=== PATIENT | female | born 1965 | race Caucasian/White ===

== ENCOUNTER 2021-05-08 18:00 | Emergency (ER) | payer SELFPAY ==
[2021-05-08] MEDS ORDERED: DERMABOND SKIN ADHESIVE TOP ONE (18:14)
--- NOTE | 2021-05-08 18:47 | EDPHYS ---
Physician Documentation [facility] Name: Wen Borges Age: 55 yrs Sex: Female : 1965 Arrival Date: 05/08/2021 Time: 18:03 Bed 18 Private MD: ED Physician Anil Mercado HPI: 05/08 18:44 This 55 yrs old Female presents to ER via Ambulatory with complaints of Finger pm1 Laceration. 18:44 The patient or guardian reports a laceration. The complaints affect the dorsal aspect pm1 of distal phalanx of right ring finger. Context: The problem was sustained at home, resulted from Cutting finger knife while washing it. Onset: The symptoms/episode began/occurred just prior to arrival. Modifying factors: The symptoms are alleviated by pressure to area. Associated signs and symptoms: The patient has no apparent associated signs or symptoms. Severity of symptoms: in the emergency department the symptoms have improved. The patient has not experienced similar symptoms in the past. The patient has not recently seen a physician. Patient was washing her knife after cutting chicken and the blade cut through the sponge and cut her right ring finger tip. Historical: - Allergies: 18:22 Aspirin; ld1 18:22 Lisinopril; ld1 - Home Meds: 18:22 amlodipine 5 mg tab 1 tab once daily [Active]; hydrochlorothiazide 12.5 mg Oral tab ld1 [Active]; losartan 25 mg Oral tab [Active]; - PMHx: 18:22 Hypertensive disorder; ld1 - PSHx: 18:22 Cholecystectomy; hysterectomy; ld1 - Immunization history:: Adult Immunizations up to date, Client reports having NOT received the Covid vaccine. - Social history:: Smoking status: Patient denies any tobacco usage or history of. Patient/guardian denies using alcohol. ROS: 18:44 Constitutional: Negative for fever, chills, and weight loss, Cardiovascular: Negative pm1 for chest pain, palpitations, and edema, Respiratory: Negative for shortness of breath, cough, wheezing, and pleuritic chest pain. 18:44 Neuro: Negative for headache, weakness, numbness, tingling, and seizure. 18:44 MS/extremity: Negative for decreased range of motion, deformity. 18:44 Skin: Positive for laceration(s), of the dorsal aspect of distal phalanx of right ring finger. 18:44 All other systems are negative. Exam: 18:44 Constitutional: This is a well developed, well nourished patient who is awake, alert, pm1 and in no acute distress. Head/Face: Normocephalic, atraumatic. 18:44 Cardiovascular: Exam negative for acute changes, Rate: normal, Rhythm: regular, Pulses: no pulse deficits are appreciated. 18:44 Respiratory: Exam negative for acute changes, respiratory distress, shortness of breath. 18:44 Musculoskeletal/extremity: Extremities: grossly normal except: noted in the dorsal aspect of distal phalanx of right ring finger: 1 cm long circular partial skin avulsion, ROM: full active range of motion, in the right thumb, right middle finger, right ring finger, right little finger and Right index finger. 18:44 Skin: Appearance: normal except for affected area, Skin injury as noted in musculoskeletal exam. 18:44 Neuro: Exam negative for acute changes, Orientation: is normal, Mentation: is normal, Motor: is normal, moves all fours. Vital Signs: 18:11 BP 193 / 91; Pulse 83; Resp 18; Temp 98.3(O); Pulse Ox 99% on R/A; Weight 120.2 kg; ld1 Height 5 ft. 8 in. (172.72 cm); Pain 6/10; 18:11 Body Mass Index 40.29 (120.20 kg, 172.72 cm) ld1 MDM: 18:10 Patient medically screened. pm1 18:44 Data reviewed: vital signs. Data interpreted: Pulse oximetry: on room air is 99 %. pm1 Interpretation: normal. Counseling: I had a detailed discussion with the patient and/or guardian regarding: the historical points, exam findings, and any diagnostic results supporting the discharge/admit diagnosis, the need for outpatient follow up, to return to the emergency department if symptoms worsen or persist or if there are any questions or concerns that arise at home. Administered Medications: No medications were administered Disposition Summary: 05/08/21 18:46 Discharge Ordered Location: Home pm1 Problem: new pm1 Symptoms: have improved pm1 Condition: Stable pm1 Diagnosis - Laceration without foreign body of right ring finger without damage to nail pm1 Followup: pm1 - With: Emergency Department - When: As needed - Reason: Worsening of condition Followup: pm1 - With: Private Physician - When: 2 - 3 days - Reason: Recheck today's complaints, Continuance of care, Re-evaluation by your physician Discharge Instructions: - Discharge Summary Sheet pm1 - Tissue Adhesive Wound Care pm1 Forms: - Medication Reconciliation Form pm1 - Thank You Letter pm1 - Antibiotic Education pm1 - Prescription Opioid Use pm1 Prescriptions: - Cephalexin 500 mg Oral Capsule - take 1 capsule by ORAL route every 12 hours for 10 days; 20 capsule; Refills: pm1 0, Product Selection Permitted Addendum: 05/11/2021 19:01 Co-signature as Attending Physician, Anil Mercado MD I agree with the assessment and r n plan of care. Attestation: The patient's history, exam findings, diagnostics, and a summary of any interventions or procedures was reviewed in detail with Koko Manning NP. Signatures: Anil Mercado MD MD rn Marinas, Patrick, NP DIRECTOR OF QUALITY pm1 Makcenzie Qureshi RN RN ld1
--- NOTE | 2021-05-08 18:47 | ER ---
Nurse's Notes [facility] Name: Wen Borges Age: 55 yrs Sex: Female : 1965 Arrival Date: 05/08/2021 Time: 18:03 Bed 18 Private MD: Diagnosis: Laceration without foreign body of right ring finger without damage to nail Presentation: 05/08 18:11 Chief complaint: Patient states: I was cutting chicken, I dropped the knife and I ld1 wanted to wash it. The knife cut my finger while I was washing it with a sponge. Coronavirus screen: At this time, the client does not indicate any symptoms associated with coronavirus-19. Ebola Screen: No symptoms or risks identified at this time. Initial Sepsis Screen: Does the patient meet any 2 criteria? No. Patient's initial sepsis screen is negative. Does the patient have a suspected source of infection? No. Patient's initial sepsis screen is negative. Risk Assessment: Do you want to hurt yourself or someone else? Patient reports no desire to harm self or others. Onset of symptoms was May 08, 2021 at 18:18. 18:11 Method Of Arrival: Ambulatory ld1 18:11 Acuity: MORAIMA 4 ld1 Triage Assessment: 18:22 General: Appears in no apparent distress. comfortable, Behavior is calm, cooperative, ld1 appropriate for age. Pain: Complains of pain in right ring fingernail Pain does not radiate. Pain currently is 6 out of 10 on a pain scale. Quality of pain is described as throbbing, Pain began suddenly, Is continuous. EENT: No signs and/or symptoms were reported regarding the EENT system. Neuro: Level of Consciousness is awake, alert, obeys commands, Oriented to person, place, time, situation, Appropriate for age. Cardiovascular: Capillary refill < 3 seconds Patient's skin is warm and dry. Respiratory: Airway is patent Respiratory effort is even, unlabored, Respiratory pattern is regular, symmetrical. GI: Abdomen is flat, non-distended. : No signs and/or symptoms were reported regarding the genitourinary system. Derm: No signs and/or symptoms reported regarding the dermatologic system. Musculoskeletal: No signs and/or symptoms reported regarding the musculoskeletal system. Injury Description: Laceration sustained to dorsal aspect of distal phalanx of right ring finger and right ring fingernail. Historical: - Allergies: 18:22 Aspirin; ld1 18:22 Lisinopril; ld1 - Home Meds: 18:22 amlodipine 5 mg tab 1 tab once daily [Active]; hydrochlorothiazide 12.5 mg Oral tab ld1 [Active]; losartan 25 mg Oral tab [Active]; - PMHx: 18:22 Hypertensive disorder; ld1 - PSHx: 18:22 Cholecystectomy; hysterectomy; ld1 - Immunization history:: Adult Immunizations up to date, Client reports having NOT received the Covid vaccine. - Social history:: Smoking status: Patient denies any tobacco usage or history of. Patient/guardian denies using alcohol. Screenin:26 Abuse screen: Denies threats or abuse. Denies injuries from another. Nutritional ld1 screening: No deficits noted. Tuberculosis screening: No symptoms or risk factors identified. Fall Risk None identified. Assessment: 18:26 Reassessment: See triage assessment. ld1 Vital Signs: 18:11 BP 193 / 91; Pulse 83; Resp 18; Temp 98.3(O); Pulse Ox 99% on R/A; Weight 120.2 kg; ld1 Height 5 ft. 8 in. (172.72 cm); Pain 6/10; 18:11 Body Mass Index 40.29 (120.20 kg, 172.72 cm) ld1 ED Course: 18:03 Patient arrived in ED. mr 18:10 Koko Manning, RADHA is PHCP. pm1 18:10 Anil Mercado MD is Attending Physician. pm1 18:18 Triage completed. ld1 18:22 Mackenzie Qureshi, ADAMARIS is Primary Nurse. ld1 18:22 Arm band placed on right wrist. ld1 18:26 Patient has correct armband on for positive identification. Bed in low position. Call ld1 light in reach. Side rails up X2. Pulse ox on. NIBP on. Door closed. Noise minimized. Warm blanket given. 18:26 No provider procedures requiring assistance completed. ld1 18:51 Patient did not have IV access during this emergency room visit. ld1 Administered Medications: No medications were administered Outcome: 18:46 Discharge ordered by . pm1 18:50 Discharged to home ambulatory. ld1 18:50 Condition: stable 18:50 Discharge instructions given to patient, Instructed on discharge instructions, follow up and referral plans. medication usage, Demonstrated understanding of instructions, follow-up care, medications. 18:50 Prescriptions given X 1. 18:51 Patient left the ED. ld1 Signatures: Dorota Verma Patrick [employer]GING [employer]SE KEEPER LODGING [employer] KEEPER pm1 Mackenzie Qureshi RN RN ld1
[2021-05-08 18:56] VITALS: BP 193/91; TEMP 98.3; O2SAT 99
== END 2021-05-08 18:51 | disposition home or self-care (01) ==
LOC: ER 18:00
DX: S61.214A Laceration without foreign body of right ring finger without damage to nail, initial encounter (principal); W26.0XXA Contact with knife, initial encounter; Y93.89 Activity, other specified; Y92.009 Unspecified place in unspecified non-institutional (private) residence as the place of occurrence of the external cause; I10 Essential (primary) hypertension; Z88.6 Allergy status to analgesic agent; Z88.8 Allergy status to other drugs, medicaments and biological substances
CPT/HCPCS: 99283

== ENCOUNTER 2022-03-05 10:09 | Emergency (ER) | payer SELFPAY ==
--- OUTSIDE RECORDS SUMMARY | 2022-03-05 10:13 | XMS REPORT | Continuity of Care Document ---
:1965 Author Organization [facility] t Address [address] [place] [address] Care Team Providers Name Role Phone Jn Cortes Primary Care Physician SHELLIE REYES Attending Clinician Unavailable Amy Pringle Attending Clinician Shellie Crawford Attending Clinician [phone] Doctor Unassigned, [place] Attending Clinician Unavailable Payers Payer Name Policy Type Policy Number Effective Date Expiration Date S ource Problems Condition Condition Condition Status Onset Resolution Last Treating Co mments Source Name Details Category Date Date Treatment Clinician Date Other Other Disease Active Univers general general 4-11 [place] of counseling [place] advice and advice 00 Fl dical for for Branch contracept contracept tj tj management management Morbid Morbid Disease Active Univers obesity obesity 4-11 ity of 00:00: [place] 00 Medical Branch Essential Essential Disease Active Uni vers hypertensi hypertensi 4-11 it y of on, benign [place], benign [place] History of History of Disease Active Overview : Univers cervical cervical 4-11 Formattin ity of cancer cancer 00:00: g of this [place] 00 note Medical might be Branch different from the original. Total hyst History of History of Disease Active U nivers total total 4-11 ity of hysterecto [place] 00 Medical Branch Allergies, Adverse Reactions, Alerts Allergy Allergy Status Severity Reaction(s) Onset Inactive Treating Comm ents Source Name Type Date Date Clinician n Propensi Active ty to 5-20 adverse 00:00: reaction 00 to drug LISINOPR DRUG Active Other-Cmnt Univ ers [place] INGREDI 4-11 ity of 00:00: [place] 00 Medical Branch Lisinopr Propensi Active Other - See Dry coug h Univers il ty to comments 4-11 ity of adverse 00:00: [place] reaction 00 Medical s Branch Lisinopr Propensi Active il - ty to 3-24 Oral adverse 00:00: reaction 00 to drug Social History Social Habit Start Date Stop Date Quantity Comments Source Exposure to 2021-07-30 2021-08-29 Not sure [facility] [place]-CoV-2 00:00:00 13:25:00 [facility] (event) [place] Tobacco use and 2021-08-29 2021-08-29 Smokeless tobacco Un iversity of exposure 00:00:00 00:00:00 non-user [facility] Alcohol intake 2021-08-29 2021-08-29 Ex-drinker [facility] 00:00:00 00:00:00 (finding) [facility] Sex Ass[birth year] At [birth year] Universit y of 00:00:00 00:00:00 [facility] Smoking Status Start Date Stop Date Source Unknown if ever smoked [facility] Never smoked tobacco [facility] Medications Ordered Filled Start Stop Current Ordering Indication Dosage Frequency Signature Comments Components Source Medication Medication Date Date Medication? Clinician (SIG) Name Name Dose No Unknown 12-16 00:00: 00 losartan 50 2021-0 No 1mg mg tablet 12-16 00:00: 00 amlodipine 2021-0 No 1mg 10 mg 7-29 tablet 00:00: 00 methocarbam 2-0 No 1mg ol 750 mg 7- tablet 00:00: 00 hydrochloro 2-0 No 1mg thiazide 25 7-29 mg tablet 00:00: 00 losartan 50 2021-0 No 1mg mg tablet 12-16 00:00: 00 amlodipine 2022-0 No 1mg 10 mg 7-29 tablet 00:00: 00 methocarbam 2-0 No 1mg ol 750 mg 7-29 tablet 00:00: 00 amlodipine 2022-0 No 1mg 10 mg 7-01 tablet 00:00: 00 hydrochloro 2022-0 No 1mg thiazide 25 7-01 mg tablet 00:00: 00 losartan 50 2022-0 No 1mg mg tablet 11-18 00:00: 00 methocarbam 2022-0 No 1mg ol 750 mg 7-01 tablet 00:00: 00 amlodipine 2022-0 No 1mg 10 mg 7- tablet 00:00: 00 hydrochloro 2022-0 No 1mg thiazide 25 7-01 mg tablet 00:00: 00 losartan 50 2022-0 No 1mg mg tablet 11-18 00:00: 00 methocarbam 2022-0 No 1mg ol 750 mg 7- tablet 00:00: 00 hydrochloro 2022-0 No 1mg thiazide 25 5-27 mg tablet 00:00: 00 losartan 50 2022-0 No 1mg mg tablet 10-14 00:00: 00 amlodipine 2022-0 No 1mg 10 mg 5-27 tablet 00:00: 00 hydrochloro 2022-0 No 1mg thiazide 25 5-27 mg tablet 00:00: 00 losartan 50 2022-0 No 1mg mg tablet 10-14 00:00: 00 amlodipine 2022-0 No 1mg 10 mg 5-27 tablet 00:00: 00 Dose 2022-0 No Unknown 5-11 00:00: 00 Dose 2022-0 No Unknown 5-11 00:00: 00 Dose 2022-0 No Unknown 5-11 00:00: 00 Dose 2022-0 No Unknown 5-11 00:00: 00 Dose 2022-0 No Unknown 5-11 00:00: 00 Dose 2022-0 No Unknown 5-11 00:00: 00 methocarbam 2022-0 No 1mg ol 750 mg 5-10 tablet 00:00: 00 methocarbam 2022-0 No 1mg ol 750 mg 5-10 tablet 00:00: 00 hydrochloro 2022-0 No 1mg thiazide 25 4-29 mg tablet 00:00: 00 losartan 50 2022-0 No 1mg mg tablet 4 00:00: 00 amlodipine 2022-0 No 1mg 10 mg 4-29 tablet 00:00: 00 hydrochloro 2022-0 No 1mg thiazide 25 4-29 mg tablet 00:00: 00 losartan 50 2021-0 No 1mg mg tablet 4-29 00:00: 00 amlodipine 2021-0 No 1mg 10 mg 4-29 tablet 00:00: 00 No known 2021-0 No Univers medications 4-11 ity of 17:17: [address] HYDROCHLORO 0 Yes Take by Uni vers THIAZIDE 4-11 mouth. ity of ORAL 13:38: [address] amLODIPine 2021-0 Yes 10mg Take 10 mg U nivers 10 mg 4-11 by mouth ity of tablet 13:38: daily. [address] losartan 2021-0 Yes Take by Univer s potassium 4-11 mouth. ity of (LOSARTAN 13:38: [place] ORAL) [address] [place] [address] HYDROCHLORO 0 Yes Take by Uni vers THIAZIDE 4-11 mouth. ity of ORAL 13:38: [address] amLODIPine 2021-0 Yes 10mg Take 10 mg U nivers 10 mg 4-11 by mouth ity of tablet 13:38: daily. [address] losartan 2021-0 Yes Take by Univer s potassium 4-11 mouth. ity of (LOSARTAN 13:38: [place] ORAL) [address] [place] [address] HYDROCHLORO 0 Yes Take by Uni vers THIAZIDE 4-11 mouth. ity of ORAL 13:38: [address] amLODIPine 2021-0 Yes 10mg Take 10 mg U nivers 10 mg 4-11 by mouth ity of tablet 13:38: daily. [address] losartan 2021-0 Yes Take by Univer s potassium 4-11 mouth. ity of (LOSARTAN 13:38: [place] ORAL) [address] [place] [address] losartan 50 2021-0 No 1mg mg tablet 3-24 00:00: 00 Dose 2021-0 No Unknown 3-24 00:00: 00 Dose 2-0 No Unknown 3-24 00:00: 00 Dose 2-0 No Unknown 3-24 00:00: 00 losartan 50 2021-0 No 1mg mg tablet 3-24 00:00: 00 Dose 2-0 No Unknown 3-24 00:00: 00 Dose 2-0 No Unknown 3-24 00:00: 00 hydrochloro 2021-0 No 1mg thiazide 25 3-24 mg tablet 00:00: 00 losartan 50 2022-0 No 1mg mg tablet 3-24 00:00: 00 amlodipine 2-0 No 1mg 10 mg 3-24 tablet 00:00: 00 Dose 2-0 No Unknown 3-24 00:00: 00 Dose 2-0 No Unknown 3-24 00:00: 00 hydrochloro 2-0 No 1mg thiazide 25 3-24 mg tablet 00:00: 00 amlodipine 2-0 No 1mg 10 mg 3-24 tablet 00:00: 00 losartan 50 2-0 No 1mg mg tablet 3-24 00:00: 00 Dose 2-0 No Unknown 3-24 00:00: 00 Dose 2-0 No Unknown 3-24 00:00: 00 Dose 2-0 No Unknown 3-24 00:00: 00 Vital Signs Vital Name Observation Time Observation Value Comments Source BP Systolic 2022-02-28 11:39:00 183 mm[Hg] BP Diastolic 2022-02-28 11:39:00 114 mm[Hg] Weight Measured 2022-02-28 11:39:00 247.00 pounds Height Measured 2022-02-28 11:39:00 63.00 inches Body Temperature 2022-02-28 11:39:00 97.60 degrees Heart Rate 2022-02-28 11:39:00 76.00 /min Respiratory Rate 2022-02-28 11:39:00 17.00 /min BP Systolic 2022-01-02 15:29:00 151 mm[Hg] BP Diastolic 2022-01-02 15:29:00 92 mm[Hg] Weight Measured 2022-01-02 15:29:00 253.00 pounds Height Measured 2022-01-02 15:29:00 63.00 inches Body Temperature 2022-01-02 15:29:00 98.20 degrees Heart Rate 2022-01-02 15:29:00 66.00 /min Respiratory Rate 2022-01-02 15:29:00 18.00 /min BP Systolic 2021-12-16 10:38:00 152 mm[Hg] BP Diastolic 2021-12-16 10:38:00 87 mm[Hg] Weight Measured 2021-12-16 10:38:00 253.00 pounds Height Measured 2021-12-16 10:38:00 63.00 inches Body Temperature 2021-12-16 10:38:00 97.80 degrees Heart Rate 2021-12-16 10:38:00 84.00 /min Respiratory Rate 2021-12-16 10:38:00 18.00 /min BP Systolic 2021-11-11 08:42:00 130 mm[Hg] BP Diastolic 2021-11-11 08:42:00 101 mm[Hg] Weight Measured 2021-11-11 08:42:00 Height Measured 2021-11-11 08:42:00 Body Temperature 2021-11-11 08:42:00 Heart Rate 2021-11-11 08:42:00 Respiratory Rate 2021-11-11 08:42:00 BP Systolic 2021-09-27 10:31:00 137 mm[Hg] BP Diastolic 2021-09-27 10:31:00 84 mm[Hg] Weight Measured 2021-09-27 10:31:00 264.20 pounds Height Measured 2021-09-27 10:31:00 63.00 inches Body Temperature 2021-09-27 10:31:00 97.90 degrees Heart Rate 2021-09-27 10:31:00 77.00 /min Respiratory Rate 2021-09-27 10:31:00 16.00 /min BP Systolic 2021-08-11 18:05:00 165 mm[Hg] BP Diastolic 2021-08-11 18:05:00 99 mm[Hg] Weight Measured 2021-08-11 18:05:00 273.00 pounds Height Measured 2021-08-11 18:05:00 63.00 inches Body Temperature 2021-08-11 18:05:00 98.30 degrees Heart Rate 2021-08-11 18:05:00 71.00 /min Respiratory Rate 2021-08-11 18:05:00 16.00 /min Procedures Procedure Date / Time Performed Performing Clinician [facility] e REFERRAL- 2021-08-12 05:01:00 Doctor Unassigned, No Univer [facility] REQUEST/RESPONSE Name Medical Branch Plan of Care Planned Activity Planned Date Details Comments Source Goal Plan of Care Note [code = 52123-5] Goal Plan of Care Note [code = 34316-0] Goal Plan of Care Note [code = 53144-7] Goal Plan of Care Note [code = 13530-8] Goal Plan of Care Note [code = 11096-3] Goal Plan of Care Note [code = 11881-0] Goal Plan of Care Note [code = 34147-2] Goal Plan of Care Note [code = 69559-0] Goal Plan of Care Note [code = 68085-1] Goal Plan of Care Note [code = 17379-8] Goal Plan of Care Note [code = 35602-3] Goal Plan of Care Note [code = 61071-9] Goal Plan of Care Note [code = 75691-0] Goal Plan of Care Note [code = 91631-2] Goal Plan of Care Note [code = 43004-3] Goal Plan of Care Note [code = 76937-7] Goal Plan of Care Note [code = 16859-1] Goal Plan of Care Note [code = 86305-0] Goal Plan of Care Note [code = 40922-4] Goal Plan of Care Note [code = 08455-6] Encounters Start End Encounter Admission Attending Care Care Encounter Source Date/Time Date/Time Type Type Clinicians Facility Department ID 2022-03-28 2022-03-28 Outpatient R AMY [facility] [id number] Univers 00:00:00 00:00:00 SHELLIE pagan [facility] 2022-02-28 2022-02-28 Outpatient [facility] [id number] [place] 11:32:14 11:32:14 [id number] F Kwasi 2022-02-28 2022-02-28 Outpatient [id number] 00:00:00 00:00:00 Visit [id number] 2022-01-03 2022-01-03 Telephone [facility] [id number] Univers 00:00:00 00:00:00 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 [id number] ity [facility] [id number] Tino as MATERNAL [phone] Med ical & CHILD [address] [place] [address] 2022-01-02 2022-01-02 Outpatient [id number] 00:00:00 00:00:00 Visit [id number] 2021-11-29 2021-11-29 [facility] [id number] Univers 09:36:20 23:59:00 Encounter Shellie C SPECIALTY [id number] ity of [facility] [place] [phone] [address] 2021-11-29 2021-11-29 Outpatient R [facility] [id number] [facility] 09:36:20 23:59:00 SHELLIE ity o f [facility] 2021-09-13 2021-09-13 Telephone [facility] [id number] Univers 00:00:00 00:00:00 Shellie 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 [id number] ity of [facility] 4.2.7.2.686 [place] as MATERNAL [id number] Med ical & CHILD [address] [place] [address] 2021-09-01 2021-09-01 Outpatient R [facility] [id number] Univers 14:45:00 14:45:00 ity of [facility] 2021-09-01 2021-09-01 Telephone [facility] [id number] Univers 00:00:00 00:00:00 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 [id number] ity of [facility] 4.2.7.2.686 [place] as MATERNAL [phone] Med ical & CHILD 107 [facility] 2021-08-29 2021-08-29 Office [facility] [id number] Univers 14:45:00 14:53:14 Visit Shellie 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 [id number] ity of REGION[facility] 4.2.7.2.686 [place] as MATERNAL [phone] Med ical & CHILD [address] [place] [address] 2021-08-29 2021-08-29 Outpatient R AKINSIPE, [facility] [id number] Univers 14:45:00 14:45:00 SHELLIE hemphill o [facility] 2021-08-29 2021-08-29 Office Akinsipe, [facility] [id number] Univers 13:30:00 14:29:07 Visit Shellie Rogers 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 [id number] ity of [facility] 4.2.7.2.686 [place] as MATERNAL [phone] [facility] & CHILD [address] [place] [address] 2021-08-29 2021-08-29 Outpatient R AKINSIPE, [facility] [id number] Univers 13:30:00 14:29:07 SHELLIE hemphill o [facility] 2021-08-29 2021-08-29 Outpatient R AKINSIPE, [facility] [id number] Univers 13:30:00 14:29:07 SHELLIE hemphill o [facility] 2021-08-29 2021-08-29 Outpatient R AKINSIPE, [facility] [id number] Univers 13:00:00 14:25:18 SHELLIE hemphill o [facility] 2021-08-29 2021-08-29 Outpatient R AKINSIPE, [facility] [id number] Univers 13:00:00 14:25:18 SHELLIE lakhwindermaria de jesus o [facility] 2021-08-29 2021-08-29 Orders Doctor JOHANA [id number] Univers 00:00:00 00:00:00 Only Unassigned, SHERRY [id number] ity of [place] [facility] 4.2.7.2.686 Tino as [id number] [address] 2021-08-12 2021-08-12 Orders Doctor JOHANA [id number] Univers 00:00:00 00:00:00 Only Unassigned, SHERRY [id number] ity of [place] [facility] 4.2.7.2.686 [place] as [id number] Medi irina 009 Branch Results Test Description Test Time Test Comments Results Result Comments Source COMPREHENSIVE METABOLIC PANEL 2021-12-17 04:29:27 Test Item Value Reference Range Interpretation Comme nts GLUCOSE (test code = 221) 82 MG/DL 70-99 BUN (test code = 220) 12 MG/DL 6-20 CREATININE (test code = 0.97 MG/DL 0.60-1.30 2213) eGFR (2020 CKD-EPI) (test 68 ML/MIN/1.73 >60 code = 76627) CALC BUN/CREAT (test code = 12 RATIO 6-28 2234) SODIUM (test code = 223) 145 MEQ/L 133-146 POTASSIUM (test code = 2228) 3.9 MEQ/L 3.5-5.4 CHLORIDE (test code = 221) 105 MEQ/L 95-107 CARBON DIOXIDE (test code = 27 MEQ/L 2205) CALCIUM (test code = 220) 9.6 MG/DL 8.5-10.5 PROTEIN, TOTAL (test code = 6.1 G/DL 6.1-8.3 2228) ALBUMIN (test code = 220) 4.3 G/DL 3.5-5.2 CALC GLOBULIN (test code = 1.8 G/DL 1.9-3.7 L 2239) CALC A/G RATIO (test code = 2.4 RATIO 1.0-2.6 2233) BILIRUBIN, TOTAL (test code 0.4 MG/DL See_Comment [Automated message] The = 2206) system which ge nerated this result transmit carmen reference range: <=1.2. T he reference range was not u sed to interpret this result as normal/abnormal . ALKALINE PHOSPHATASE (test 112 U/L 40-136 code = 2204) AST (test code = 2218) 21 U/L 9-40 ALT (test code = 2219) 22 U/L 5-40 LIPID [id number] 04:29:27 Test Item Value Reference Range Interpretation Comments CHOLESTEROL (test 182 MG/DL <200 code = 2210) TRIGLYCERIDES (test 152 MG/DL <150 H code = 2232) HDL CHOLESTEROL (test 41 MG/DL >39 code = 2220) CALC LDL CHOL (test 114 MG/DL <100 H NOTE: C ALCULATED LDL code = 2237) IS BASED ON YENNIFER-MARLEY METHOD WHICHINCLUDES ADJUSTABLE TRIGLYCERIDE:VL DL CHOLESTEROL RAT IO.THIS FACTOR VARIES B Y MEASURED TRIGLY CERIDE AND NON-HDLCHOL ESTEROL CONCENTRATIONS WITH INCREASED CALCU LATED LDL SEENIN HIGH ER TRIGLYCERIDE OR LOWER NON-HDL SPECIME NS. FOR MOREINFORMATION , SEE CLIENT ANNOUNCE MENT AT [email or web address] [email or web address] RATIO LDL/HDL 2.78 RATIO <3.22 (test code = 2238) HEMOGLOBIN [id number] 04:10:33 Test Item Value Reference Range Interpretation Comments HEMOGLOBIN A1c (test 5.5 % 4.2-5.6 UNLESS OTHERWISE code = 02552) INDICATED, ALL TESTING PERFORMED [facility] PATHOLOGY [employer] [address] [place] [id number] [place] [address] DIRECTOR: ARCADIO ROBLES M.D. CLIA NUMBER [id number] CAP ACCREDITATION N O. [id number] CBC W/AUTO DIFF WITH [id number] 03:19:47 Test Item Value Reference Range Interpretation Comments WBC (test code = 8.2 K/UL 3.5-11.0 1001) RBC (test code = 5.04 M/UL 3.80-5.40 1002) HEMOGLOBIN (test code 13.5 G/DL 11.5-15.5 = 1003) HEMATOCRIT (test code 40.6 % 34.0-45.0 = 1004) MCV (test code = 80.6 fL 80.0-99.0 1005) MCH (test code = 26.8 PG 25.0-33.0 1006) MCHC (test code = 33.3 G/DL 31.0-36.0 1007) RDW (test code = 12.9 % 11.5-15.0 1038) NEUTROPHILS (test 70.3 % code = 1008) LYMPHOCYTES (test 21.5 % code = 1010) MONOCYTES (test code 4.9 % = 1011) EOSINOPHILS (test 2.6 % code = 1012) BASOPHILS (test code 0.6 % = 1013) IMMATURE GRANULOCYTES 0.1 % (test code = 1036) NUCLEATED RBCS (test 0.0 /100 WBC'S See_Comment [Aut omated code = 1065) message] The sy stem which generated this result transmitted reference range : 0.0. The refere nce range was not u sed to interpret th is result as normal/abnormal . PLATELET COUNT (test 277 K/UL 130-400 code = 1015) ABSOLUTE NEUTROPHILS 5.73 K/UL 1.50-7.50 (test code = 1066) ABSOLUTE LYMPHOCYTES 1.75 K/UL 1.00-4.00 (test code = 1067) ABSOLUTE MONOCYTES 0.40 K/UL 0.20-1.00 (test code = 1068) ABSOLUTE EOSINOPHILS 0.21 K/UL 0.00-0.50 (test code = 1040) ABSOLUTE BASOPHILS 0.05 K/UL 0.00-0.20 (test code = 1069) ABS IMMATURE 0.01 K/UL 0.00-0.10 GRANULOCYTES (test code = 1020) ABS NUCLEATED RBCS 0.00 K/UL 0.00-0.11 (test code = 85455) CBC W/AUTO DIFF WITH PLATELETS [ADDED]2021-12-17 00:00:00 Test Item Value Reference Range Interpretation Comments WBC (test code = 1001) 8.2 K/UL RBC (test code = 1002) 5.04 M/UL HEMOGLOBIN (test code = 1003) 13.5 G/DL HEMATOCRIT (test code = 1004) 40.6 % MCV (test code = 1005) 80.6 fL MCH (test code = 1006) 26.8 PG MCHC (test code = 1007) 33.3 G/DL RDW (test code = 1038) 12.9 % NEUTROPHILS (test code = 1008) 70.3 % LYMPHOCYTES (test code = 1010) 21.5 % MONOCYTES (test code = 1011) 4.9 % EOSINOPHILS (test code = 1012) 2.6 % BASOPHILS (test code = 1013) 0.6 % IMMATURE GRANULOCYTES (test 0.1 % code = 1036) NUCLEATED RBCS (test code = 0.0 /100WBC'S 1065) PLATELET COUNT (test code = 277 K/UL 1015) ABSOLUTE NEUTROPHILS (test code 5.73 K/UL = 1066) ABSOLUTE LYMPHOCYTES (test code 1.75 K/UL = 1067) ABSOLUTE MONOCYTES (test code = 0.40 K/UL 1068) ABSOLUTE EOSINOPHILS (test code 0.21 K/UL = 1040) ABSOLUTE BASOPHILS (test code = 0.05 K/UL 1069) ABS IMMATURE GRANULOCYTES (test 0.01 K/UL code = 1020) ABS NUCLEATED RBCS (test code = 0.00 K/UL 92710) CBC W/AUTO DIFF WITH PLATELETS [ADDED]2021-12-17 00:00:00 Test Item Value Reference Range Interpretation Comments WBC (test code = 1001) 8.2 K/UL RBC (test code = 1002) 5.04 M/UL HEMOGLOBIN (test code = 1003) 13.5 G/DL HEMATOCRIT (test code = 1004) 40.6 % MCV (test code = 1005) 80.6 fL MCH (test code = 1006) 26.8 PG MCHC (test code = 1007) 33.3 G/DL RDW (test code = 1038) 12.9 % NEUTROPHILS (test code = 1008) 70.3 % LYMPHOCYTES (test code = 1010) 21.5 % MONOCYTES (test code = 1011) 4.9 % EOSINOPHILS (test code = 1012) 2.6 % BASOPHILS (test code = 1013) 0.6 % IMMATURE GRANULOCYTES (test 0.1 % code = 1036) NUCLEATED RBCS (test code = 0.0 /100WBC'S 1065) PLATELET COUNT (test code = 277 K/UL 1015) ABSOLUTE NEUTROPHILS (test code 5.73 K/UL = 1066) ABSOLUTE LYMPHOCYTES (test code 1.75 K/UL = 1067) ABSOLUTE MONOCYTES (test code = 0.40 K/UL 1068) ABSOLUTE EOSINOPHILS (test code 0.21 K/UL = 1040) ABSOLUTE BASOPHILS (test code = 0.05 K/UL 1069) ABS IMMATURE GRANULOCYTES (test 0.01 K/UL code = 1020) ABS NUCLEATED RBCS (test code = 0.00 K/UL 21574) CBC W/AUTO DIFF WITH PLATELETS [ADDED]2021-12-17 00:00:00 Test Item Value Reference Range Interpretation Comments WBC (test code = 1001) 8.2 K/UL RBC (test code = 1002) 5.04 M/UL HEMOGLOBIN (test code = 1003) 13.5 G/DL HEMATOCRIT (test code = 1004) 40.6 % MCV (test code = 1005) 80.6 fL MCH (test code = 1006) 26.8 PG MCHC (test code = 1007) 33.3 G/DL RDW (test code = 1038) 12.9 % NEUTROPHILS (test code = 1008) 70.3 % LYMPHOCYTES (test code = 1010) 21.5 % MONOCYTES (test code = 1011) 4.9 % EOSINOPHILS (test code = 1012) 2.6 % BASOPHILS (test code = 1013) 0.6 % IMMATURE GRANULOCYTES (test 0.1 % code = 1036) NUCLEATED RBCS (test code = 0.0 /100WBC'S 1065) PLATELET COUNT (test code = 277 K/UL 1015) ABSOLUTE NEUTROPHILS (test code 5.73 K/UL = 1066) ABSOLUTE LYMPHOCYTES (test code 1.75 K/UL = 1067) ABSOLUTE MONOCYTES (test code = 0.40 K/UL 1068) ABSOLUTE EOSINOPHILS (test code 0.21 K/UL = 1040) ABSOLUTE BASOPHILS (test code = 0.05 K/UL 1069) ABS IMMATURE GRANULOCYTES (test 0.01 K/UL code = 1020) ABS NUCLEATED RBCS (test code = 0.00 K/UL 83857) COMPREHENSIVE METABOLIC PANEL [ADDED]2021-12-17 00:00:00 Test Item Value Reference Range Interpretation Comments GLUCOSE (test code = 2217) 82 MG/DL BUN (test code = 2208) 12 MG/DL CREATININE (test code = 2214) 0.97 MG/DL eGFR (2020 CKD-EPI) (test code 68 ML/MIN/1.73 = 82969) CALC BUN/CREAT (test code = 12 RATIO 2235) SODIUM (test code = 2231) 145 MEQ/L POTASSIUM (test code = 2228) 3.9 MEQ/L CHLORIDE (test code = 2215) 105 MEQ/L CARBON DIOXIDE (test code = 27 MEQ/L 2206) CALCIUM (test code = 2209) 9.6 MG/DL PROTEIN, TOTAL (test code = 6.1 G/DL 2228) ALBUMIN (test code = 2201) 4.3 G/DL CALC GLOBULIN (test code = 1.8 G/DL 2240) CALC A/G RATIO (test code = 2.4 RATIO 2234) BILIRUBIN, TOTAL (test code = 0.4 MG/DL 2207) ALKALINE PHOSPHATASE (test 112 U/L code = 2204) AST (test code = 2218) 21 U/L ALT (test code = 2219) 22 U/L COMPREHENSIVE METABOLIC PANEL [ADDED]2021-12-17 00:00:00 Test Item Value Reference Range Interpretation Comments GLUCOSE (test code = 2217) 82 MG/DL BUN (test code = 2208) 12 MG/DL CREATININE (test code = 2214) 0.97 MG/DL eGFR (2020 CKD-EPI) (test code 68 ML/MIN/1.73 = 73574) CALC BUN/CREAT (test code = 12 RATIO 2235) SODIUM (test code = 2231) 145 MEQ/L POTASSIUM (test code = 2228) 3.9 MEQ/L CHLORIDE (test code = 2215) 105 MEQ/L CARBON DIOXIDE (test code = 27 MEQ/L 2205) CALCIUM (test code = 2209) 9.6 MG/DL PROTEIN, TOTAL (test code = 6.1 G/DL 2228) ALBUMIN (test code = 2201) 4.3 G/DL CALC GLOBULIN (test code = 1.8 G/DL 2239) CALC A/G RATIO (test code = 2.4 RATIO 2233) BILIRUBIN, TOTAL (test code = 0.4 MG/DL 2206) ALKALINE PHOSPHATASE (test 112 U/L code = 2204) AST (test code = 2218) 21 U/L ALT (test code = 2219) 22 U/L LIPID PANEL [ADDED]2021-12-17 00:00:00 Test Item Value Reference Range Interpretation Comments CHOLESTEROL (test code = 2210) 182 MG/DL TRIGLYCERIDES (test code = 2232) 152 MG/DL HDL CHOLESTEROL (test code = 2220) 41 MG/DL CALC LDL CHOL (test code = 2237) 114 MG/DL RISK RATIO LDL/HDL (test code = 2.78 RATIO 2238) LIPID PANEL [ADDED]2021-12-17 00:00:00 Test Item Value Reference Range Interpretation Comments CHOLESTEROL (test code = 2210) 182 MG/DL TRIGLYCERIDES (test code = 2232) 152 MG/DL HDL CHOLESTEROL (test code = 2220) 41 MG/DL CALC LDL CHOL (test code = 2237) 114 MG/DL RISK RATIO LDL/HDL (test code = 2.78 RATIO 2238) HEMOGLOBIN A1c [ADDED]2021-12-17 00:00:00 Test Item Value Reference Range Interpretation Comments HEMOGLOBIN A1c (test code = 34296) 5.5 % HEMOGLOBIN A1c [ADDED]2021-12-17 00:00:00 Test Item Value Reference Range Interpretation Comments HEMOGLOBIN A1c (test code = 64459) 5.5 % HEMOGLOBIN A1c [ADDED]2021-12-17 00:00:00 Test Item Value Reference Range Interpretation Comments HEMOGLOBIN A1c (test code = 89224) 5.5 % CBC W/AUTO DIFF WITH PLATELETS [ADDED]2021-12-17 00:00:00 Test Item Value Reference Range Interpretation Comments WBC (test code = 1001) 8.2 K/UL RBC (test code = 1002) 5.04 M/UL HEMOGLOBIN (test code = 1003) 13.5 G/DL HEMATOCRIT (test code = 1004) 40.6 % MCV (test code = 1005) 80.6 fL MCH (test code = 1006) 26.8 PG MCHC (test code = 1007) 33.3 G/DL RDW (test code = 1038) 12.9 % NEUTROPHILS (test code = 1008) 70.3 % LYMPHOCYTES (test code = 1010) 21.5 % MONOCYTES (test code = 1011) 4.9 % EOSINOPHILS (test code = 1012) 2.6 % BASOPHILS (test code = 1013) 0.6 % IMMATURE GRANULOCYTES (test 0.1 % code = 1036) NUCLEATED RBCS (test code = 0.0 /100WBC'S 1065) PLATELET COUNT (test code = 277 K/UL 1015) ABSOLUTE NEUTROPHILS (test code 5.73 K/UL = 1066) ABSOLUTE LYMPHOCYTES (test code 1.75 K/UL = 1067) ABSOLUTE MONOCYTES (test code = 0.40 K/UL 1068) ABSOLUTE EOSINOPHILS (test code 0.21 K/UL = 1040) ABSOLUTE BASOPHILS (test code = 0.05 K/UL 1069) ABS IMMATURE GRANULOCYTES (test 0.01 K/UL code = 1020) ABS NUCLEATED RBCS (test code = 0.00 K/UL 86946) CBC W/AUTO DIFF WITH PLATELETS [ADDED]2021-12-17 00:00:00 Test Item Value Reference Range Interpretation Comments WBC (test code = 1001) 8.2 K/UL RBC (test code = 1002) 5.04 M/UL HEMOGLOBIN (test code = 1003) 13.5 G/DL HEMATOCRIT (test code = 1004) 40.6 % MCV (test code = 1005) 80.6 fL MCH (test code = 1006) 26.8 PG MCHC (test code = 1007) 33.3 G/DL RDW (test code = 1038) 12.9 % NEUTROPHILS (test code = 1008) 70.3 % LYMPHOCYTES (test code = 1010) 21.5 % MONOCYTES (test code = 1011) 4.9 % EOSINOPHILS (test code = 1012) 2.6 % BASOPHILS (test code = 1013) 0.6 % IMMATURE GRANULOCYTES (test 0.1 % code = 1036) NUCLEATED RBCS (test code = 0.0 /100WBC'S 1065) PLATELET COUNT (test code = 277 K/UL 1015) ABSOLUTE NEUTROPHILS (test code 5.73 K/UL = 1066) ABSOLUTE LYMPHOCYTES (test code 1.75 K/UL = 1067) ABSOLUTE MONOCYTES (test code = 0.40 K/UL 1068) ABSOLUTE EOSINOPHILS (test code 0.21 K/UL = 1040) ABSOLUTE BASOPHILS (test code = 0.05 K/UL 1069) ABS IMMATURE GRANULOCYTES (test 0.01 K/UL code = 1020) ABS NUCLEATED RBCS (test code = 0.00 K/UL 06453) CBC W/AUTO DIFF WITH PLATELETS [ADDED]2021-12-17 00:00:00 Test Item Value Reference Range Interpretation Comments WBC (test code = 1001) 8.2 K/UL RBC (test code = 1002) 5.04 M/UL HEMOGLOBIN (test code = 1003) 13.5 G/DL HEMATOCRIT (test code = 1004) 40.6 % MCV (test code = 1005) 80.6 fL MCH (test code = 1006) 26.8 PG MCHC (test code = 1007) 33.3 G/DL RDW (test code = 1038) 12.9 % NEUTROPHILS (test code = 1008) 70.3 % LYMPHOCYTES (test code = 1010) 21.5 % MONOCYTES (test code = 1011) 4.9 % EOSINOPHILS (test code = 1012) 2.6 % BASOPHILS (test code = 1013) 0.6 % IMMATURE GRANULOCYTES (test 0.1 % code = 1036) NUCLEATED RBCS (test code = 0.0 /100WBC'S 1065) PLATELET COUNT (test code = 277 K/UL 1015) ABSOLUTE NEUTROPHILS (test code 5.73 K/UL = 1066) ABSOLUTE LYMPHOCYTES (test code 1.75 K/UL = 1067) ABSOLUTE MONOCYTES (test code = 0.40 K/UL 1068) ABSOLUTE EOSINOPHILS (test code 0.21 K/UL = 1040) ABSOLUTE BASOPHILS (test code = 0.05 K/UL 1069) ABS IMMATURE GRANULOCYTES (test 0.01 K/UL code = 1020) ABS NUCLEATED RBCS (test code = 0.00 K/UL 03566) COMPREHENSIVE METABOLIC PANEL [ADDED]2021-12-17 00:00:00 Test Item Value Reference Range Interpretation Comments GLUCOSE (test code = 2217) 82 MG/DL BUN (test code = 2208) 12 MG/DL CREATININE (test code = 2214) 0.97 MG/DL eGFR (2020 CKD-EPI) (test code 68 ML/MIN/1.73 = 66257) CALC BUN/CREAT (test code = 12 RATIO 2235) SODIUM (test code = 2231) 145 MEQ/L POTASSIUM (test code = 2228) 3.9 MEQ/L CHLORIDE (test code = 2215) 105 MEQ/L CARBON DIOXIDE (test code = 27 MEQ/L 2205) CALCIUM (test code = 2209) 9.6 MG/DL PROTEIN, TOTAL (test code = 6.1 G/DL 2228) ALBUMIN (test code = 2201) 4.3 G/DL CALC GLOBULIN (test code = 1.8 G/DL 2240) CALC A/G RATIO (test code = 2.4 RATIO 2234) BILIRUBIN, TOTAL (test code = 0.4 MG/DL 220) ALKALINE PHOSPHATASE (test 112 U/L code = 2204) AST (test code = 2218) 21 U/L ALT (test code = 2219) 22 U/L COMPREHENSIVE METABOLIC PANEL [ADDED]2021-12-17 00:00:00 Test Item Value Reference Range Interpretation Comments GLUCOSE (test code = 2217) 82 MG/DL BUN (test code = 2208) 12 MG/DL CREATININE (test code = 2214) 0.97 MG/DL eGFR (2020 CKD-EPI) (test code 68 ML/MIN/1.73 = 05299) CALC BUN/CREAT (test code = 12 RATIO 2235) SODIUM (test code = 2231) 145 MEQ/L POTASSIUM (test code = 2228) 3.9 MEQ/L CHLORIDE (test code = 2215) 105 MEQ/L CARBON DIOXIDE (test code = 27 MEQ/L 2205) CALCIUM (test code = 2209) 9.6 MG/DL PROTEIN, TOTAL (test code = 6.1 G/DL 2228) ALBUMIN (test code = 2201) 4.3 G/DL CALC GLOBULIN (test code = 1.8 G/DL 2239) CALC A/G RATIO (test code = 2.4 RATIO 2234) BILIRUBIN, TOTAL (test code = 0.4 MG/DL 2206) ALKALINE PHOSPHATASE (test 112 U/L code = 2204) AST (test code = 2218) 21 U/L ALT (test code = 2219) 22 U/L LIPID PANEL [ADDED]2021-12-17 00:00:00 Test Item Value Reference Range Interpretation Comments CHOLESTEROL (test code = 2210) 182 MG/DL TRIGLYCERIDES (test code = 2232) 152 MG/DL HDL CHOLESTEROL (test code = 2220) 41 MG/DL CALC LDL CHOL (test code = 2237) 114 MG/DL RISK RATIO LDL/HDL (test code = 2.78 RATIO 2238) LIPID PANEL [ADDED]2021-12-17 00:00:00 Test Item Value Reference Range Interpretation Comments CHOLESTEROL (test code = 2210) 182 MG/DL TRIGLYCERIDES (test code = 2232) 152 MG/DL HDL CHOLESTEROL (test code = 2220) 41 MG/DL CALC LDL CHOL (test code = 2237) 114 MG/DL RISK RATIO LDL/HDL (test code = 2.78 RATIO 2238) HEMOGLOBIN A1c [ADDED]2021-12-17 00:00:00 Test Item Value Reference Range Interpretation Comments HEMOGLOBIN A1c (test code = 83147) 5.5 % HEMOGLOBIN A1c [ADDED]2021-12-17 00:00:00 Test Item Value Reference Range Interpretation Comments HEMOGLOBIN A1c (test code = 93645) 5.5 % HEMOGLOBIN A1c [ADDED]2021-12-17 00:00:00 Test Item Value Reference Range Interpretation Comments HEMOGLOBIN A1c (test code = 09740) 5.5 %
[2022-03-05] MEDS ORDERED: ONDANSETRON 4 MG/2 ML VIAL ONE (10:47)
[2022-03-05] MEDS ORDERED: MORPHINE 4 MG/ML SYR ONE (10:47)
[2022-03-05] MEDS ORDERED: NA CHLORIDE 0.9% 1,000 ML ONE (10:47)
[2022-03-05] MEDS ORDERED: FAMOTIDINE 20 MG/2 ML VIAL IV ONE (10:48)
[2022-03-05 10:53] LABS: Absolute Lymphocytes (CBC) 1.8 K/uL (0.7-4.9); Hematocrit 41.1 % (36.0-45.0); Lymphocytes % 23.2 % (15.3-44.8); MCV 79.2 fL (80-100); MPV 8.3 fL (7.6-11.3); RBC Red Blood Cell Count 5.19 M/uL (3.86-4.86)
[2022-03-05 11:09] LABS: Urine Blood Negative (Negative); Urine Glucose Negative (Negative); Urine Protein 1+ (Negative); Urine Specific Gravity 1.025 (1.005-1.030)
[2022-03-05 11:22] LABS: Albumin 3.4 g/dL (3.4-5.0); Bilirubin Total 0.5 mg/dL (0.2-1.0); Potassium 3.4 mmol/L (3.5-5.1); Protein, Total 6.3 g/dL (6.4-8.2)
--- NOTE | 2022-03-05 12:12 | RAD REPORT ---
EXAM DESCRIPTION: CTAbdomen Pelvis W Contrast - 03/05/2022 11:39 am CLINICAL HISTORY: lower abdominal pain, vomiting COMPARISON: No comparisons TECHNIQUE: CT of the abdomen and pelvis was performed. All CT scans are performed using dose optimization technique as appropriate and may include automated exposure control or mA/KV adjustment according to patient size. FINDINGS: Lower chest: No acute abnormality. Liver: No acute abnormality or suspicious lesions. Biliary: No biliary ductal dilatation. Cholecystectomy . Stomach: No significant focal abnormality. Duodenum: No significant focal abnormality. Pancreas: No significant abnormality. Spleen: No significant abnormality. Adrenal: No suspicious lesions. Kidney/ureter: No hydronephrosis. No renal calculi. Retroperitoneum: No retroperitoneal adenopathy. Vascular: No aneurysm. Atherosclerosis. Bowel: No significant focal abnormality. Peritoneum: Fat containing ventral hernias are present. 1 is a periumbilical hernia in the head there is located more inferiorly and is a ventral hernia containing fluid. Bladder: Grossly unremarkable. Reproductive: No adnexal masses. Bones: No acute fracture. Other: n/a IMPRESSION: Fat containing periumbilical and ventral hernia. Correlate clinically for incarceration. Small volume of nonspecific free fluid in the pelvis.
[2022-03-05] MEDS ORDERED: DIAZEPAM 10 MG/2 ML INJ SYRINGE ONE (12:35)
--- NOTE | 2022-03-05 14:28 | EDPHYS ---
Physician Documentation [facility] Name: Wen Borges Age: 56 yrs Sex: Female : 1965 Arrival Date: 03/05/2022 Time: 10:10 Bed 14 Private MD: DIEGO Physician Alexandro Park HPI: 03/05 10:23 This 56 yrs old Female presents to ER via Ambulatory with complaints of Abdominal Pain. m 10:23 The patient presents with abdominal pain. Onset: The symptoms/episode began/occurred jmm gradually, 3 day(s) ago. Is a 56-year-old female with history of hypertension that presents emerged part with complaints of abdominal pain and hernia pain. Also recently pain began when she was having difficulty pushing her hernia back into her abdomen. Patient states pain is worsened since denies any vomiting or diarrhea.. Historical: - Allergies: 10:15 Aspirin; tw2 10:15 Lisinopril; tw2 10:15 Honey; tw2 - Home Meds: 10:15 losartan 100 mg oral tab 1 tab once daily [Active]; amlodipine 5 mg tab 1 tab once tw2 daily [Active]; hydrochlorothiazide 12.5 mg Oral tab [Active]; - PMHx: 10:15 Hypertensive disorder; tw2 - PSHx: 10:15 Cholecystectomy; hysterectomy; tw2 - Immunization history:: Client reports receiving the 2nd dose of the Covid vaccine. - Social history:: Smoking status: Patient denies any tobacco usage or history of. ROS: 10:23 Constitutional: Negative for fever, chills, and weight loss, Cardiovascular: Negative jm for chest pain, palpitations, and edema, Respiratory: Negative for shortness of breath, cough, wheezing, and pleuritic chest pain. 10:23 Abdomen/GI: Positive for abdominal pain. 10:23 All other systems are negative. Exam: 10:23 Constitutional: This is a well developed, well nourished patient who is awake, alert, jmm and in no acute distress. Head/Face: atraumatic. Eyes: EOMI, no conjunctival erythema appreciated ENT: Moist Mucus Membranes Neck: Trachea midline, Supple Chest/axilla: Normal chest wall appearance and motion. Cardiovascular: Regular rate and rhythm. No edema appreciated Respiratory: Normal respirations, no respiratory distress appreciated 10:23 Skin: General appearance color normal MS/ Extremity: Moves all extremities, no obvious deformities appreciated, no edema noted to the lower extremities Neuro: Awake and alert Psych: Behavior is normal, Mood is normal, Patient is cooperative and pleasant 10:23 Abdomen/GI: Inspection: abdomen appears normal, Bowel sounds: normal, Palpation: soft, moderate abdominal tenderness, in the umbilical area and suprapubic area. Vital Signs: 10:14 BP 180 / 97; Pulse 78; Resp 18; Temp 97.9(TE); Pulse Ox 99% on R/A; Weight 112.04 kg; tw2 Height 5 ft. 7 in. (170.18 cm); Pain 10/10; 11:00 BP 179 / 89; Pulse 59; Resp 16; Pulse Ox 99% ; db 11:15 Pain 6/10; db 12:03 BP 172 / 92; Pulse 60; Resp 16; Pulse Ox 99% ; Pain 8/10; db 13:00 BP 155 / 78; Pulse 61; Resp 14; Pulse Ox 95% ; db 14:00 BP 161 / 71; Pulse 63; Resp 16; Pulse Ox 100% ; db 14:21 Pain 3/10; db 15:30 BP 183 / 95; Pulse 58; Resp 16; Temp 98; Pulse Ox 100% ; Pain 2/10; db 10:14 Body Mass Index 38.69 (112.04 kg, 170.18 cm) tw2 MDM: 10:23 Patient medically screened. [facility] 14:26 Data reviewed: vital signs, nurses notes. Counseling: I had a detailed discussion with [facility] the patient and/or guardian regarding: the historical points, exam findings, and any diagnostic results supporting the discharge/admit diagnosis, the need for outpatient follow up, to return to the emergency department if symptoms worsen or persist or if there are any questions or concerns that arise at home. ED course: Discussed the patient with will see the patient in clinic. Patient otherwise given strict return precautions. Patient understood agrees plan of care. . 03/05 10:29 Order name: CBC with Diff; Complete Time: 11:05 [facility] 03/05 10:29 Order name: CMP; Complete Time: 11:30 [facility] 03/05 10:29 Order name: Lipase; Complete Time: 11:30 [facility] 03/05 10:29 Order name: CT Abd/Pelvis - IV Contrast Only; Complete Time: 12:13 [facility] 03/05 11:09 Order name: Urine Dipstick-Ancillary; Complete Time: 11:12 [facility] 03/05 10:29 Order name: IV Saline Lock; Complete Time: 10:44 [facility] 03/05 10:29 Order name: Labs collected and sent; Complete Time: 10:44 [facility] 03/05 10:29 Order name: Urine Dipstick-Ancillary (obtain specimen); Complete Time: 11:08 [facility] Administered Medications: 10:53 Drug: NS 0.9% 1000 ml Route: IV; Rate: 1 bolus; Site: right antecubital; db 12:15 Follow up: Response: No adverse reaction; IV Status: Completed infusion; IV Intake: db 1000ml 10:53 Drug: Pepcid (famotidine) 20 mg Route: IVP; Site: right antecubital; db 12:15 Follow up: Response: No adverse reaction db 10:53 Drug: Zofran (Ondansetron) 4 mg Route: IVP; Site: right antecubital; db 12:15 Follow up: Response: No adverse reaction db 10:53 Drug: morphine 4 mg Route: IVP; Infused Over: 4 mins; Site: right antecubital; db 12:16 Follow up: Response: No adverse reaction db 12:50 Drug: Valium (diazepam) 5 mg Route: IVP; Site: right antecubital; db 13:35 Follow up: Response: No adverse reaction db Disposition Summary: 03/05/22 14:27 Discharge Ordered Location: Home [facility] Condition: Stable [facility] Diagnosis - Ventral Hernia [facility] - Umbilical Hernia [facility] Followup: [facility] - With: Private Physician - When: 2 - 3 days - Reason: Recheck today's complaints, Continuance of care, Re-evaluation by your physician Discharge Instructions: - Hernia, Adult [facility] - Discharge Summary Sheet tw2 Forms: - Medication Reconciliation Form [facility] - Thank You Letter [facility] - Antibiotic Education [facility] - Work release form tw2 - Prescription Opioid Use [facility] Prescriptions: - Valium 5 mg Oral Tablet - take 1 tablet by ORAL route every 8 hours As needed; 20 tablet; Refills: 0, jm Product Selection Permitted Signatures: Dispatcher [employer] EDAlexandro Lees MD MD cha Mickail, Joel, PA PA jmm Wise, Tara RN RN tw2 Nakita Guerrero, RN RN db
--- NOTE | 2022-03-05 14:28 | ER ---
Nurse's Notes [facility] Name: Wen Borges Age: 56 yrs Sex: Female : 1965 Arrival Date: 03/05/2022 Time: 10:10 Bed 14 Private MD: Diagnosis: Ventral Hernia;Umbilical Hernia Presentation: 03/05 10:14 Chief complaint: Patient states: i have this lump in my stomach and i am able to push tw2 it back in. but about 1.5 hours ago i was sitting and it hurts me. its just a bad pain and up into my middle chest area. +N. Coronavirus screen: At this time, the client does not indicate any symptoms associated with coronavirus-19. Ebola Screen: Patient denies travel to an Ebola-affected area in the 21 days before illness onset. Initial Sepsis Screen: Does the patient meet any 2 criteria? No. Patient's initial sepsis screen is negative. Does the patient have a suspected source of infection? No. Patient's initial sepsis screen is negative. Risk Assessment: Do you want to hurt yourself or someone else? Patient reports no desire to harm self or others. Onset of symptoms was March 05, 2022. 10:14 Method Of Arrival: Ambulatory tw2 10:14 Acuity: MORAIMA 3 tw2 Triage Assessment: 10:16 General: Appears uncomfortable, Behavior is calm, cooperative, appropriate for age. tw2 Pain: Complains of pain in abdomen Pain radiates to epigastric area. Neuro: Level of Consciousness is awake, alert, obeys commands, Oriented to person, place, time, situation. GI: Reports lower abdominal pain, upper abdominal pain, nausea. Historical: - Allergies: 10:15 Aspirin; tw2 10:15 Lisinopril; tw2 10:15 Honey; tw2 - Home Meds: 10:15 losartan 100 mg oral tab 1 tab once daily [Active]; amlodipine 5 mg tab 1 tab once tw2 daily [Active]; hydrochlorothiazide 12.5 mg Oral tab [Active]; - PMHx: 10:15 Hypertensive disorder; tw2 - PSHx: 10:15 Cholecystectomy; hysterectomy; tw2 - Immunization history:: Client reports receiving the 2nd dose of the Covid vaccine. - Social history:: Smoking status: Patient denies any tobacco usage or history of. Screenin:25 Abuse screen: Denies threats or abuse. Nutritional screening: No deficits noted. tw2 Tuberculosis screening: No symptoms or risk factors identified. Fall Risk None identified. Assessment: 10:25 Reassessment: Patient appears in no apparent distress at this time. No changes from db previously documented assessment. Patient and/or family updated on plan of care and expected duration. Pain level reassessed. Patient is alert, oriented x 3, equal unlabored respirations, skin warm/dry/pink. patient states started with N/Vomiting since . Worse today with upper middle abdominal pain. States feels like has something that she is "pushing back in" in the abdomen with vomiting. General: Appears in no apparent distress. comfortable, Behavior is calm, cooperative, appropriate for age, quiet. Pain: Complains of pain in abdomen and epigastric area Pain currently is 9 out of 10 on a pain scale. Pain began 1 hour ago. Neuro: No deficits noted. Neuro: Level of Consciousness is awake, alert, obeys commands, Oriented to person, place, time, situation, Appropriate for age. Cardiovascular: No deficits noted. Respiratory: No deficits noted. GI: Abd is soft X 4 quads Abd is non tender Reports nausea, vomiting. : No deficits noted. EENT: No deficits noted. Derm: No deficits noted. Musculoskeletal: No deficits noted. 11:30 Reassessment: Patient appears in no apparent distress at this time. No changes from db previously documented assessment. Patient and/or family updated on plan of care and expected duration. Pain level reassessed. Patient is alert, oriented x 3, equal unlabored respirations, skin warm/dry/pink. 12:30 Reassessment: Patient appears in no apparent distress at this time. No changes from db previously documented assessment. Patient and/or family updated on plan of care and expected duration. Pain level reassessed. Patient is alert, oriented x 3, equal unlabored respirations, skin warm/dry/pink. 13:33 Reassessment: Patient appears in no apparent distress at this time. No changes from db previously documented assessment. Patient and/or family updated on plan of care and expected duration. Pain level reassessed. Patient is alert, oriented x 3, equal unlabored respirations, skin warm/dry/pink. Patient denies pain at this time. Patient states feeling better. Patient states symptoms have improved. 14:30 Reassessment: Patient appears in no apparent distress at this time. No changes from db previously documented assessment. Patient and/or family updated on plan of care and expected duration. Pain level reassessed. Patient is alert, oriented x 3, equal unlabored respirations, skin warm/dry/pink. Patient states feeling better. Patient states symptoms have improved. 15:30 Reassessment: Patient appears in no apparent distress at this time. No changes from db previously documented assessment. Patient and/or family updated on plan of care and expected duration. Pain level reassessed. Patient is alert, oriented x 3, equal unlabored respirations, skin warm/dry/pink. Patient states feeling better. Patient states symptoms have improved. Vital Signs: 10:14 BP 180 / 97; Pulse 78; Resp 18; Temp 97.9(TE); Pulse Ox 99% on R/A; Weight 112.04 kg; tw2 Height 5 ft. 7 in. (170.18 cm); Pain 10/10; 11:00 BP 179 / 89; Pulse 59; Resp 16; Pulse Ox 99% ; db 11:15 Pain 6/10; db 12:03 BP 172 / 92; Pulse 60; Resp 16; Pulse Ox 99% ; Pain 8/10; db 13:00 BP 155 / 78; Pulse 61; Resp 14; Pulse Ox 95% ; db 14:00 BP 161 / 71; Pulse 63; Resp 16; Pulse Ox 100% ; db 14:21 Pain 3/10; db 15:30 BP 183 / 95; Pulse 58; Resp 16; Temp 98; Pulse Ox 100% ; Pain 2/10; db 10:14 Body Mass Index 38.69 (112.04 kg, 170.18 cm) tw2 ED Course: 10:10 Patient arrived in ED. am2 10:15 Triage completed. tw2 10:16 Arm band placed on. tw2 10:17 Nakita Guerrero, RN is Primary Nurse. db 10:17 Bed in low position. Call light in reach. tw2 10:21 Kalin Pitts PA is PHCP. stephenie 10:21 Alexandro Park MD is Attending Physician. jmm 10:40 Inserted saline lock: 20 gauge in right antecubital area, using aseptic technique. db Blood collected. 11:41 CT Abd/Pelvis - IV Contrast Only In Process Unspecified. EDMS 13:00 Pulse ox on. NIBP on. db 15:30 No provider procedures requiring assistance completed. IV discontinued, intact, db bleeding controlled, No redness/swelling at site. Administered Medications: 10:53 Drug: NS 0.9% 1000 ml Route: IV; Rate: 1 bolus; Site: right antecubital; db 12:15 Follow up: Response: No adverse reaction; IV Status: Completed infusion; IV Intake: db 1000ml 10:53 Drug: Pepcid (famotidine) 20 mg Route: IVP; Site: right antecubital; db 12:15 Follow up: Response: No adverse reaction db 10:53 Drug: Zofran (Ondansetron) 4 mg Route: IVP; Site: right antecubital; db 12:15 Follow up: Response: No adverse reaction db 10:53 Drug: morphine 4 mg Route: IVP; Infused Over: 4 mins; Site: right antecubital; db 12:16 Follow up: Response: No adverse reaction db 12:50 Drug: Valium (diazepam) 5 mg Route: IVP; Site: right antecubital; db 13:35 Follow up: Response: No adverse reaction db Medication: 10:25 VIS not applicable for this client. tw2 Intake: 12:15 IV: 1000ml; Total: 1000ml. db Outcome: 14:27 Discharge ordered by . stephenie 16:19 Discharged to home ambulatory. db 16:19 Discharged to home ambulatory, with family. 16:19 Condition: stable 16:19 Discharge instructions given to patient, Instructed on discharge instructions, follow up and referral plans. Prescriptions given X 1. 16:20 Patient left the ED. db Signatures: Dispatcher [employer] EDMS Kalin Pitts PA PA jmm Wise, Tara, RN RN tw2 Abeba Jules am2 Nakita Guerrero RN RN db
[2022-03-05 16:47] VITALS: O2SAT 100
[2022-03-05 16:49] VITALS: BP 183/95; TEMP 98
== END 2022-03-05 16:20 | disposition home or self-care (01) ==
LOC: ER 10:09
DX: K43.9 Ventral hernia without obstruction or gangrene (principal); K42.9 Umbilical hernia without obstruction or gangrene; I10 Essential (primary) hypertension
CPT/HCPCS: 36415; 74177; 80053; 81003; 83690; 85025; 96361; 96374; 96375; 99284; J2405; J3360; J7030; Q9967

== ENCOUNTER 2025-03-04 00:08 | Emergency (ER) | payer BC ==
--- OUTSIDE RECORDS SUMMARY | 2025-03-04 00:18 | XMS REPORT | Continuity of Care Document ---
Author Name Unknown Address [address] [facility] [place] [address] [facility] Address [address] [facility] [address] [place] [address] Care Team Providers Care Senior Java Developer Name Role Phone SAIRA CORTES Primary Care Physician Vandana LORIN Kaminski Attending Clinician Unavailab Lorin Seymour DO Attending Clinician [phone] Shellie Crawford Attending Clinician + SHELLIE PAUL Attending Clinician Unavail GLADIS Frankel Attending Clinician Unavaila Amy Callahan Attending Clinician [phone] Doctor Unassigned, [place] Attending Clinician U LORIN Velazquez Admitting Clinician Unavailab le Payers Payer Name Policy Type Policy Number Effective Date Expirati on Date Source [facility] [employer] [id number] 2023 00:00:00 Problems Condition Name Condition Details Condition Category Status Onset Date Resolution Date Last Treatment Date Treating Clinician Comments Source Other general counseling and advice for contracept tj management Other general counseling and advice for contracept tj management Disease Active 08-29 00:00: 00 [facility] Morbid obesity Morbid obesity Disease Active 08-29 00:00: 00 [facility] Essential hypertensi on, benign Essential hypertensi on, benign Disease Active 08-29 00:00: 00 [facility] History of cervical cancer History of cervical cancer Disease Active 08-29 00:00: 00 Overview: Formattin g of this note might be different from the original. Total hyst [facility] History of total hysterecto my History of total hysterecto my Disease Active 08-29 00:00: 00 [facility] Allergies, Adverse Reactions, Alerts Allergy Name Allergy Type Status Severity Reaction(s) Onset Date Inactive Date Treating Clinician Comments Source lisinopr il Propensi ty to adverse reaction to drug Active 5- 00:00: 00 Chencho Villalpando HONEY DRUG INGREDI Active Anaphylaxis 2-18 00:00: 00 [facility] BEE STING / VENOM DRUG INGREDI Active Anaphylaxis 2-18 00:00: 00 [facility] Bee Sting / Venom Propensi ty to adverse reaction s Active Anaphylaxis 2-18 00:00: 00 [facility] Honey Propensi ty to adverse reaction s Active Anaphylaxis 2-18 00:00: 00 [facility] n Propensi ty to adverse reaction to drug Active 5-20 00:00: 00 Chencho Villalpando LISINOPR IL DRUG INGREDI Active Other-Cmnt 08-29 00:00: 00 [facility] Lisinopr il Propensi ty to adverse reaction s Active Other - See comments 08-29 00:00: 00 Dry cough [facility] Lisinopr il - Oral Propensi ty to adverse reaction to drug Active 3-24 00:00: 00 Chencho Villalpando Social History Social Habit Start Date Stop Date Quantity Comments Source [facility] 2023-07-08 00:00:00 2023-07-08 00:00:00 Ex-drinker (finding) [facility] Exposure to SARS-CoV-2 (event) 2021-07-30 00:00:00 2021-08-29 13:25:00 Not sure [facility] History of Social function 2021-08-29 00:00:00 2021-08-29 00:00:00 [facility] Tobacco use and exposure 2021-08-29 00:00:00 2021-08-29 00:00:00 Smokeless tobacco non-user [facility] Sex Ass[birth year] At 1965 00:00:00 1965 00:00:00 [facility] Smoking Status Start Date Stop Date Source Unknown if [facility] smoked [facility] Never smoked tobacco [facility] Medications Ordered Medication Name Filled Medication Name Start Date Stop Date Current Medication? Ordering Clinician Indication Dosage Frequency Signature (SIG) Comments Components Source albuterol sulfate HFA 90 mcg/actuati on aerosol inhaler 01-29 00:00: 00 Yes 1mcg/ac tuation Chencho Villalpando cetirizine 10 mg tablet 01-29 00:00: 00 Yes 1mg Chencho Villalpando amlodipine 10 mg tablet 01-29 00:00: 00 Yes 1mg Chencho Villalpando hydrochloro thiazide 25 mg tablet 01-29 00:00: 00 Yes 1mg Chencho Villalpando losartan 100 mg tablet 01-29 00:00: 00 Yes 1mg Chencho Villalpando Flonase Allergy Relief 50 mcg/actuati on nasal spray,suspe nsion 01-29 00:00: 00 Yes 1mcg/ac tuation Chencho Villalpando amlodipine 10 mg tablet 11-12 00:00: 00 Yes 1mg Chencho Villalpando hydrochloro thiazide 25 mg tablet 11-12 00:00: 00 Yes 1mg Chencho Villalpando losartan 100 mg tablet 11-12 00:00: 00 Yes 1mg Chencho Villalpando albuterol sulfate HFA 90 mcg/actuati on aerosol inhaler - 00:00: 00 Yes 1mcg/ac tuation Chencho Villalpando cetirizine 10 mg tablet -10 00:00: 00 Yes 1mg Chencho Villalpando Bromfed DM 2 mg-30 mg-10 mg/5 mL oral syrup 3-10 00:00: 00 Yes 10mg/5 mL Chencho Villalpando albuterol sulfate HFA 90 mcg/actuati on aerosol inhaler 2023-05 1- 00:00: 00 Yes 1mcg/ac tuation Chencho Villalpando cetirizine 10 mg tablet 2023-05 00:00: 00 Yes 1mg Chencho Villalpando Flonase Allergy Relief 50 mcg/actuati on nasal spray,suspe nsion 2023-05 00:00: 00 Yes 1mcg/ac tuation Chencho Villalpando Bromfed DM 2 mg-30 mg-10 mg/5 mL oral syrup 2023-05 00:00: 00 Yes 1mg/5 mL Chencho Villalpando amlodipine 10 mg tablet 2023-05 00:00: 00 Yes 1mg Chencho Villalpando hydrochloro thiazide 25 mg tablet 2023-05 00:00: 00 Yes 1mg Chencho Villalpando losartan 100 mg tablet 2023-05 00:00: 00 Yes 1mg Chencho Villalpando amlodipine 10 mg tablet 09-18 00:00: 00 Yes mg Chencho Villalpando hydrochloro thiazide 25 mg tablet 09-18 00:00: 00 Yes mg Chencho Villalpando losartan 100 mg tablet 09-18 00:00: 00 Yes mg Chencho Villalpando amLODIPine (NORVASC) tablet 10 mg 07-09 01:45: 00 07-09 00:50 :00 No 10mg 10 mg, Oral, ONCE, 1 dose, On 07/08/23 at 1945, Routine [facility] methocarbam oL (ROBAXIN) tablet 1,000 mg 07-09 01:00: 00 07-09 01:08 :00 No 1000mg 1,000 mg, Oral, ONCE, 1 dose, On 07/08/23 at 1900, SULAIMAN [facility] HYDROcodone -acetaminop hen (NORCO 5) 5-325 mg tablet 1 tablet 07-09 01:00: 00 07-09 01:08 :00 No 1{tbl} 1 tablet, Oral, ONCE, 1 [facility], [facility] 07-08 18:48: 18 Yes Take by mouth every morning. [facility] amLODIPine 10 mg tablet 18 18:48: 18 Yes 10mg Take 1 tablet by mouth at bedtime. [facility] TAKE 1 CAPSULE BY MOUTH ONCE DAILY 2022-05 2 00:00: 00 10-02 00:00 :00 No [id number] Chencho Villalpando LOSARTAN POTASSIUM 100 MG 2022-05 2 00:00: 00 Yes Chencho Villalpando TAKE 1 TABLET DAILY. 2022-05 00:00: 00 10-02 00:00 :00 No 10 Chencho Villalpando FLUOXETINE HCL 20 MG CAPSULE 2022-05 2 00:00: 00 Yes Chencho Villalpando TAKE 1 CAPSULE EVERY MORNING. 2022-05 00:00: 00 10-02 00:00 :00 No 20 Chencho Villalpando TAKE 1/2 TABLET AT BEDTIME. 2022-05 00:00: 00 10-02 00:00 :00 No 50 Chencho Villalpando TAKE 1 TABLET DAILY. 2022-05 2 00:00: 00 10-02 00:00 :00 No 10 Chencho Villalpando FLUOXETINE HCL 20 MG CAPSULE 2022-05 1-20 00:00: 00 Yes Chencho Villalpando FLUOXETINE HCL 10 MG CAPSULE 2022-05 0 00:00: 00 Yes Chencho Villalpando TAKE ONE TABLET BY MOUTH DAILY 2022-05 0 00:00: 00 10-02 00:00 :00 No 10 Chencho Villalpando HYDROCHLORO THIAZIDE 25 MG 02-06 00:00: 00 Yes Chencho Villalpando TAKE 1 TABLET TWICE DAILY NEEDED. 02-06 00:00: 00 10-02 00:00 :00 No 750 Chencho Villalpando TAKE 1 TABLET DAILY. 02-06 00:00: 00 10-02 00:00 :00 No 10 Chencho Villalpando TAKE 1 TABLET DAILY. 02-06 00:00: 00 10-02 00:00 :00 No 100 Chencho Villalpando TAKE 1 TABLET DAILY. 02-01 00:00: 00 10-02 00:00 :00 No 25 Chencho Villalpando TAKE 1 TABLET DAILY. 02-01 00:00: 00 10-02 00:00 :00 No 10 Chencho Villalpando TAKE 1 TABLET DAILY. 02-01 00:00: 00 10-02 00:00 :00 No 100 Chencho Villalpando HYDROCODONE -ACETAMIN 5-325 MG 01-21 00:00: 00 Yes Chencho Villalpando TAKE 1 TABLET DAILY. 07-21 00:00: 00 10-02 00:00 :00 No 25 Chencho Villalpando TAKE 1 TABLET DAILY. 07-21 00:00: 00 10-02 00:00 :00 No 100 Chencho Villalpando TAKE 1 TABLET TWICE DAILY NEEDED. 07-21 00:00: 00 10-02 00:00 :00 No 750 Chencho Villalpando TAKE 1 TABLET DAILY. 07-21 00:00: 00 10-02 00:00 :00 No 10 Chencho Villalpando Dose Unknown 12-16 00:00: 00 No losartan 50 mg tablet 12-16 00:00: 00 No 1mg amlodipine 10 mg tablet 12-16 00:00: 00 No 1mg methocarbam ol 750 mg tablet 12-16 00:00: 00 No 1mg Dose Unknown 12-16 00:00: 00 No losartan 50 mg tablet 12-16 00:00: 00 No 1mg amlodipine 10 mg tablet 12-16 00:00: 00 No 1mg methocarbam ol 750 mg tablet 12-16 00:00: 00 No 1mg Dose Unknown 12-16 00:00: 00 No losartan 50 mg tablet 12-16 00:00: 00 No 1mg amlodipine 10 mg tablet 12-16 00:00: 00 No 1mg methocarbam ol 750 mg tablet 12-16 00:00: 00 No 1mg hydrochloro thiazide 25 mg tablet 12-16 00:00: 00 No 1mg losartan 50 mg tablet 12-16 00:00: 00 No 1mg amlodipine 10 mg tablet 12-16 00:00: 00 No 1mg methocarbam ol 750 mg tablet 12-16 00:00: 00 No 1mg hydrochloro thiazide 25 mg tablet 12-16 00:00: 00 Yes 1mg Chencho Villalpando losartan 50 mg tablet 12-16 00:00: 00 Yes 1mg Chencho Villalpando amlodipine 10 mg tablet 12-16 00:00: 00 Yes 1mg Chencho Villalpando methocarbam ol 750 mg tablet 12-16 00:00: 00 Yes 1mg Chencho Villalpando amlodipine 10 mg tablet 11-18 00:00: 00 No 1mg hydrochloro thiazide 25 mg tablet 11-18 00:00: 00 No 1mg losartan 50 mg tablet 11-18 00:00: 00 No 1mg methocarbam ol 750 mg tablet 11-18 00:00: 00 No 1mg amlodipine 10 mg tablet 11-18 00:00: 00 No 1mg hydrochloro thiazide 25 mg tablet 11-18 00:00: 00 No 1mg losartan 50 mg tablet 11-18 00:00: 00 No 1mg methocarbam ol 750 mg tablet 11-18 00:00: 00 No 1mg amlodipine 10 mg tablet 11-18 00:00: 00 No 1mg hydrochloro thiazide 25 mg tablet 11-18 00:00: 00 No 1mg losartan 50 mg tablet 11-18 00:00: 00 No 1mg methocarbam ol 750 mg tablet 11-18 00:00: 00 No 1mg amlodipine 10 mg tablet 11-18 00:00: 00 No 1mg hydrochloro thiazide 25 mg tablet 11-18 00:00: 00 No 1mg losartan 50 mg tablet 11-18 00:00: 00 No 1mg methocarbam ol 750 mg tablet 11-18 00:00: 00 No 1mg amlodipine 10 mg tablet 11-18 00:00: 00 Yes 1mg Chencho Villalpando hydrochloro thiazide 25 mg tablet 0 11-18 00:00: 00 Yes 1mg Chencho Villalpando losartan 50 mg tablet 0 11-18 00:00: 00 Yes 1mg Chencho Villalpando methocarbam ol 750 mg tablet 0 11-18 00:00: 00 Yes 1mg Chencho Villalpando hydrochloro thiazide 25 mg tablet 0 10-14 00:00: 00 No 1mg losartan 50 mg tablet 0 10-14 00:00: 00 No 1mg amlodipine 10 mg tablet 0 10-14 00:00: 00 No 1mg hydrochloro thiazide 25 mg tablet 0 10-14 00:00: 00 No 1mg losartan 50 mg tablet 0 10-14 00:00: 00 No 1mg amlodipine 10 mg tablet 0 10-14 00:00: 00 No 1mg hydrochloro thiazide 25 mg tablet 0 10-14 00:00: 00 No 1mg hydrochloro thiazide 25 mg tablet 0 10-14 00:00: 00 No 1mg losartan 50 mg tablet 0 10-14 00:00: 00 No 1mg amlodipine 10 mg tablet 0 10-14 00:00: 00 No 1mg losartan 50 mg tablet 0 10-14 00:00: 00 No 1mg amlodipine 10 mg tablet 0 10-14 00:00: 00 No 1mg hydrochloro thiazide 25 mg tablet 0 10-14 00:00: 00 Yes 1mg Chencho Villalpando losartan 50 mg tablet 0 10-14 00:00: 00 Yes 1mg Chencho Villalpando amlodipine 10 mg tablet 0 10-14 00:00: 00 Yes 1mg Chencho Villalpando Dose Unknown 2021-0 5- 00:00: 00 No Dose Unknown 2021-0 5- 00:00: 00 No Dose Unknown 2021-0 5- 00:00: 00 No Dose Unknown 2021-0 5- 00:00: 00 No Dose Unknown 2021-0 5- 00:00: 00 Yes Chencho Villalpando methocarbam ol 750 mg tablet 2021-0 - 00:00: 00 No 1mg methocarbam ol 750 mg tablet 5 00:00: 00 No 1mg methocarbam ol 750 mg tablet 0 09-27 00:00: 00 No 1mg methocarbam ol 750 mg tablet 09-27 00:00: 00 No 1mg methocarbam ol 750 mg tablet 09-27 00:00: 00 Yes 1mg Chencho Villalpando hydrochloro thiazide 25 mg tablet 09-16 00:00: 00 No 1mg losartan 50 mg tablet 09-16 00:00: 00 No 1mg amlodipine 10 mg tablet 09-16 00:00: 00 No 1mg losartan 50 mg tablet 09-16 00:00: 00 No 1mg amlodipine 10 mg tablet 09-16 00:00: 00 No 1mg hydrochloro thiazide 25 mg tablet 09-16 00:00: 00 No 1mg hydrochloro thiazide 25 mg tablet 09-16 00:00: 00 No 1mg losartan 50 mg tablet 09-16 00:00: 00 No 1mg amlodipine 10 mg tablet 09-16 00:00: 00 No 1mg hydrochloro thiazide 25 mg tablet 09-16 00:00: 00 No 1mg losartan 50 mg tablet 09-16 00:00: 00 No 1mg amlodipine 10 mg tablet 09-16 00:00: 00 No 1mg losartan 50 mg tablet 09-16 00:00: 00 Yes 1mg Chencho Villalpando amlodipine 10 mg tablet 09-16 00:00: 00 Yes 1mg Chencho Villalpando hydrochloro thiazide 25 mg tablet 09-16 00:00: 00 Yes 1mg Chencho Villalpando No known medications 08-29 17:17: 35 No [facility] HYDROCHLORO THIAZIDE ORAL 08-29 13:38: 25 Yes Take by mouth. [facility] amLODIPine 10 mg tablet 08-29 13:38: 25 Yes 10mg Take 10 mg by mouth daily. [facility] losartan 50 mg tablet 24 00:00: 00 No 1mg Dose Unknown 0 08-11 00:00: 00 No Dose Unknown 0 08-11 00:00: 00 No losartan 50 mg tablet 0 08-11 00:00: 00 No 1mg Dose Unknown 0 08-11 00:00: 00 No Dose Unknown 0 08-11 00:00: 00 No losartan 50 mg tablet 0 08-11 00:00: 00 No 1mg Dose Unknown 0 08-11 00:00: 00 No Dose Unknown 0 08-11 00:00: 00 No losartan 50 mg tablet 0 08-11 00:00: 00 No 1mg Dose Unknown 0 08-11 00:00: 00 No Dose Unknown 0 08-11 00:00: 00 No losartan 50 mg tablet 0 08-11 00:00: 00 Yes 1mg Chencho Villalpando Dose Unknown 0 08-11 00:00: 00 Yes Chencho Villalpando Dose Unknown 0 08-11 00:00: 00 Yes Chencho Villalpando Immunizations Ordered Immunization Name Filled Immunization Name Date Status Comments Source Influenza, injectable, Madin Lauren Canine Kidney, preservative-free, quadrivalent Influenza, injectable, Madin [place] Canine Kidney, preservative-free, quadrivalent 2024-04-09 00:00:00 Lavell Villalpando Influenza, injectable, Madin Lauren Canine Kidney, preservative-free, quadrivalent Influenza, injectable, Madin [place] Canine Kidney, preservative-free, quadrivalent 2023-04-20 00:00:00 Lavell Villalpando Vital Signs Vital Name Observation Time Observation Value Comments S oursarah Systolic blood pressure 2023-07-09 02:40:00 218 mm[Hg] [place] [facility] Diastolic blood pressure 2023-07-09 02:40:00 85 mm[Hg] [place] [facility] Heart rate 2023-07-09 02:40:00 62 /min [facility] Body temperature 2023-07-09 02:40:00 37.28 Mary [facility] Respiratory rate 2023-07-09 02:40:00 14 /min [facility] Oxygen saturation in Arterial blood by Pulse oximetry 2023-07-09 02:40:00 98 /min [facility] Body height 2023-07-09 00:44:00 170.2 cm [facility] Body weight 2023-07-09 00:44:00 106.595 kg [facility] BMI 2023-07-09 00:44:00 36.81 kg/m2 [facility] BP Systolic 2025-01-29 08:03:00 133 mm[Hg] Step hen F [facility] BP Diastolic 2025-01-29 08:03:00 85 mm[Hg] Jovanny phen [facility] Weight Measured 2025-01-29 08:03:00 267.20 pounds Chencho F Kwas[facility] Height Measured 2025-01-29 08:03:00 63.00 inches Chencho F [facility] Body Temperature 2025-01-29 08:03:00 97.50 degrees Chencho F [facility] Heart Rate 2025-01-29 08:03:00 83.00 /min Mercedes en [facility] Respiratory Rate 2025-01-29 08:03:00 18.00 /min Chencho F [facility]wasi BP Systolic 2024-07-28 15:13:00 175 mm[Hg] Step hen [facility] BP Diastolic 2024-07-28 15:13:00 94 mm[Hg] Jovanny phen [facility] Weight Measured 2024-07-28 15:13:00 260.00 pounds Chencho F Kwasi Height Measured 2024-07-28 15:13:00 63.00 inches Chencho F [facility] Body Temperature 2024-07-28 15:13:00 98.10 degrees Chencho F Kwasi Heart Rate 2024-07-28 15:13:00 66.00 /min Mercedes en [facility] Respiratory Rate 2024-07-28 15:13:00 19.00 /min Chencho F [facility]was[facility] BP Systolic 2024-04-19 14:06:00 169 mm[Hg] Step hen [facility] BP Diastolic 2024-04-19 14:06:00 82 mm[Hg] Jovanny phen [facility] Weight Measured 2024-04-19 14:06:00 256.80 pounds Chencho F Kwasi Height Measured 2024-04-19 14:06:00 63.00 inches Chencho F [facility]was[facility] Body Temperature 2024-04-19 14:06:00 98.60 degrees Chencho F Kwasi Heart Rate 2024-04-19 14:06:00 74.00 /min Mercedes en [facility] Respiratory Rate 2024-04-19 14:06:00 18.00 /min Chencho F [facility] BP Systolic 2024-04-09 10:15:00 180 mm[Hg] Step hen [facility] BP Diastolic 2024-04-09 10:15:00 111 mm[Hg] Jovanny phen [facility] Weight Measured 2024-04-09 10:15:00 259.20 pounds Chencho F Kwasi Height Measured 2024-04-09 10:15:00 63.00 inches Chencho F [facility] Body Temperature 2024-04-09 10:15:00 97.90 degrees Chencho F [facility]was[facility] Heart Rate 2024-04-09 10:15:00 66.00 /min Mercedes en [facility] Respiratory Rate 2024-04-09 10:15:00 16.00 /min Chencho F [facility] BP Systolic 2024-04-09 09:23:00 180 mm[Hg] Step hen F [facility] BP Diastolic 2024-04-09 09:23:00 111 mm[Hg] Jovanny phen F [facility] Weight Measured 2024-04-09 09:23:00 259.20 pounds Chencho F Kwasi Height Measured 2024-04-09 09:23:00 63.00 inches Chencho F Kwasi Body Temperature 2024-04-09 09:23:00 97.90 degrees Chencho F Kwasi Heart Rate 2024-04-09 09:23:00 66.00 /min Mercedes en [facility] Respiratory Rate 2024-04-09 09:23:00 16.00 /min Chencho F [facility] BP Systolic 2023-09-19 16:48:00 175 mm[Hg] Step hen [facility] BP Diastolic 2023-09-19 16:48:00 96 mm[Hg] Jovanny phen [facility] Weight Measured 2023-09-19 16:48:00 244.60 pounds Chencho F Kwasi Height Measured 2023-09-19 16:48:00 63.00 inches Chencho F Kwas[facility] Body Temperature 2023-09-19 16:48:00 98.10 degrees Chencho F Kwasi Heart Rate 2023-09-19 16:48:00 91.00 /min Mercedes en F [facility] Respiratory Rate 2023-09-19 16:48:00 19.00 /min Chencho F Kwasi BP Systolic 2023-05-01 11:41:00 125 mm[Hg] Step hen [facility] BP Diastolic 2023-05-01 11:41:00 82 mm[Hg] Jovanny phen [facility] Weight Measured 2023-05-01 11:41:00 233.60 pounds Chencho F Kwasi Height Measured 2023-05-01 11:41:00 63.00 inches Chencho F Kwasi Body Temperature 2023-05-01 11:41:00 98.30 degrees Chencho F Kwasi Heart Rate 2023-05-01 11:41:00 76.00 /min Mercedes en F [facility] Respiratory Rate 2023-05-01 11:41:00 17.00 /min Chencho F Kwasi BP Systolic 2023-04-25 11:42:00 151 mm[Hg] Step hen F [facility] BP Diastolic 2023-04-25 11:42:00 89 mm[Hg] Jovanny phen F [facility] Weight Measured 2023-04-25 11:42:00 234.00 pounds Chencho F Kwasi Height Measured 2023-04-25 11:42:00 63.00 inches Chencho F Kwasi Body Temperature 2023-04-25 11:42:00 98.00 degrees Chencho F Kwasi Heart Rate 2023-04-25 11:42:00 85.00 /min Mercedes en F [facility] Respiratory Rate 2023-04-25 11:42:00 17.00 /min Chencho F Kwasi BP Systolic 2023-04-23 09:49:00 174 mm[Hg] Step hen F [facility] BP Diastolic 2023-04-23 09:49:00 98 mm[Hg] Jovanny phen F [facility] Weight Measured 2023-04-23 09:49:00 234.00 pounds Chencho F Kwasi Height Measured 2023-04-23 09:49:00 63.00 inches Chencho F Kwasi Body Temperature 2023-04-23 09:49:00 97.90 degrees Chencho F Kwasi Heart Rate 2023-04-23 09:49:00 88.00 /min Mercedes en F [facility] Respiratory Rate 2023-04-23 09:49:00 18.00 /min Chencho F Kwasi BP Systolic 2023-04-20 10:48:00 155 mm[Hg] Step hen F [facility] BP Diastolic 2023-04-20 10:48:00 86 mm[Hg] Jovanny phen [facility] Weight Measured 2023-04-20 10:48:00 236.60 pounds Chencho F Kwasi Height Measured 2023-04-20 10:48:00 63.00 inches Chencho F Kwasi Body Temperature 2023-04-20 10:48:00 98.70 degrees Chencho F Kwasi Heart Rate 2023-04-20 10:48:00 71.00 /min Mercedes en F [facility] Respiratory Rate 2023-04-20 10:48:00 Chencho F Kwasi BP Systolic 2023-04-09 10:54:00 201 mm[Hg] Step hen F [facility] BP Diastolic 2023-04-09 10:54:00 101 mm[Hg] Jovanny phen [facility] Weight Measured 2023-04-09 10:54:00 234.20 pounds Chencho F Kwasi Height Measured 2023-04-09 10:54:00 63.00 inches Chencho F Kwasi Body Temperature 2023-04-09 10:54:00 97.40 degrees Chencho F Kwasi Heart Rate 2023-04-09 10:54:00 77.00 /min Mercedes en F [facility] Respiratory Rate 2023-04-09 10:54:00 20.00 /min Chencho F Kwasi BP Systolic 2023-03-14 08:21:00 179 mm[Hg] Step hen F Kwas[facility] BP Diastolic 2023-03-14 08:21:00 97 mm[Hg] Jovanny phen F [facility] Weight Measured 2023-03-14 08:21:00 229.40 pounds Chencho F Kwasi Height Measured 2023-03-14 08:21:00 63.00 inches Chencho F Kwasi Body Temperature 2023-03-14 08:21:00 97.40 degrees Chencho F Kwasi Heart Rate 2023-03-14 08:21:00 73.00 /min Mercedes en F [facility] Respiratory Rate 2023-03-14 08:21:00 20.00 /min Chencho F Kwasi BP Systolic 2023-02-12 14:19:00 134 mm[Hg] Step hen F [facility] BP Diastolic 2023-02-12 14:19:00 82 mm[Hg] Jovanny phen [facility] Weight Measured 2023-02-12 14:19:00 227.00 pounds Chencho F Kwasi Height Measured 2023-02-12 14:19:00 63.00 inches Chencho F Kwasi Body Temperature 2023-02-12 14:19:00 97.60 degrees Chencho F Kwasi Heart Rate 2023-02-12 14:19:00 83.00 /min Mercedes en F [facility] Respiratory Rate 2023-02-12 14:19:00 19.00 /min Chencho F Kwasi BP Systolic 2023-02-06 15:20:00 142 mm[Hg] Step hen F [facility] BP Diastolic 2023-02-06 15:20:00 91 mm[Hg] Jovanny phen [facility] Weight Measured 2023-02-06 15:20:00 225.40 pounds Chencho F Kwasi Height Measured 2023-02-06 15:20:00 63.00 inches Chencho F Kwasi Body Temperature 2023-02-06 15:20:00 98.20 degrees Chencho F Kwasi Heart Rate 2023-02-06 15:20:00 79.00 /min Mercedes en F [facility]was[facility] Respiratory Rate 2023-02-06 15:20:00 18.00 /min Chencho F Kwasi BP Systolic 2022-07-21 16:13:00 145 mm[Hg] Step hen F [facility] BP Diastolic 2022-07-21 16:13:00 92 mm[Hg] Jovanny phen F [facility] Weight Measured 2022-07-21 16:13:00 238.80 pounds Chencho F Kwasi Height Measured 2022-07-21 16:13:00 63.00 inches Chencho F Kwasi Body Temperature 2022-07-21 16:13:00 98.10 degrees Chencho F Kwasi Heart Rate 2022-07-21 16:13:00 69.00 /min Mercedes en F [facility]was[facility] Respiratory Rate 2022-07-21 16:13:00 Chencho F Kwasi BP Systolic 2022-03-13 08:06:00 145 mm[Hg] BP Diastolic 2022-03-13 08:06:00 92 mm[Hg] Weight Measured 2022-03-13 08:06:00 244.20 pounds Height Measured 2022-03-13 08:06:00 63.00 inches Body Temperature 2022-03-13 08:06:00 98.10 degrees Heart Rate 2022-03-13 08:06:00 62.00 /min Respiratory Rate 2022-03-13 08:06:00 18.00 /min BP Systolic 2022-02-28 11:39:00 183 mm[Hg] BP [...] Procedures Procedure Date / Time Performed Performing Clinicia n Source XR LUMBAR SPINE 3 VW 2023-07-09 02:12:16 Bryan Tapia [facility] XR KNEE 3 VW LEFT 2023-07-09 02:12:16 Lorin Tapia [facility] ASSIGNMENT OF BENEFITS 2023-07-09 01:37:33 Docto r Unassigned, [place] [facility] NOTICE OF PRIVACY PRACTICES 2023-07-09 00:40:29 Doctor Unassigned, [place] [facility] CONSENT/REFUSAL FOR DIAGNOSIS AND TREATMENT 2023-07-09 00:39:09 Doctor Unassigned, [place] [facility] REFERRAL- REQUEST/RESPONSE 2021-08-12 05:01:00 Doctor Unassigned, [place] [facility] Plan of Care Planned Activity Planned Date Details Comments Source Goal Plan of Care Note [code = 88468-5] Goal Plan of Care Note [code = 69247-9] Goal Plan of Care Note [code = 35949-4] Goal Plan of Care Note [code = 38602-3] Goal Plan of Care Note [code = 03130-3] Goal Plan of Care Note [code = 65036-1] Goal Plan of Care Note [code = 81704-7] Goal Plan of Care Note [code = 51844-3] Goal Plan of Care Note [code = 54867-5] Goal Plan of Care Note [code = 92392-4] Goal Plan of Care Note [code = 22358-8] Goal Plan of Care Note [code = 81741-4] Goal Plan of Care Note [code = 49772-6] Goal Plan of Care Note [code = 08402-5] Goal Plan of Care Note [code = 50719-2] Goal Plan of Care Note [code = 69569-8] Goal Plan of Care Note [code = 03342-2] Goal Plan of Care Note [code = 38408-5] Goal Plan of Care Note [code = 55641-8] Goal Plan of Care Note [code = 41497-8] Goal Plan of Care Note [code = 10418-6] Goal Plan of Care Note [code = 38167-5] Goal Plan of Care Note [code = 66398-1] Goal Plan of Care Note [code = 31055-1] Goal Plan of Care Note [code = 26705-9] Goal Plan of Care Note [code = 67977-3] Goal Plan of Care Note [code = 71789-9] Goal Plan of Care Note [code = 76706-5] Goal Plan of Care Note [code = 72386-2] Goal Plan of Care Note [code = 56358-5] Goal Plan of Care Note [code = 72111-6] Goal Plan of Care Note [code = 19655-2] Goal Plan of Care Note [code = 74970-3] Goal Plan of Care Note [code = 91070-5] Goal Plan of Care Note [code = 33004-3] Goal Plan of Care Note [code = 35042-7] Goal Plan of Care Note [code = 29384-2] Goal Plan of Care Note [code = 05464-5] Goal Plan of Care Note [code = 86399-6] Goal Plan of Care Note [code = 94748-9] Goal Plan of Care Note [code = 68385-0] Goal Plan of Care Note [code = 32547-3] Goal Plan of Care Note [code = 65168-7] Encounters Start Date/Time End Date/Time Encounter Type Admission Type Attending [facility] Care Department Encounter ID Source 2025-01-29 08:02:52 2025-01-29 08:02:52 Outpatient SFA [facility] [id number] Chencho Villalpando 2025-01-29 00:00:00 2025-01-29 00:00:00 Outpatient Visit [facility] [id number] Chencho Villalpando 2024-07-28 15:05:25 2024-07-28 15:05:25 Outpatient SFA [facility] [id number] Chencho Villalpando 2024-07-28 00:00:00 2024-07-28 00:00:00 Outpatient Visit SFA [id number] Chencho Villalpando 2024-04-19 13:57:39 2024-04-19 13:57:39 Outpatient SFA [facility] [id number] Chencho Villalpando 2024-04-19 00:00:00 2024-04-19 00:00:00 Outpatient Visit SFA [id number] Chencho Villalpando 2024-04-09 00:00:00 2024-04-09 00:00:00 Outpatient Visit SFA [id number] Chencho Villalpando 2023-09-19 16:44:17 2023-09-19 16:44:17 Outpatient SFA [facility] [id number] Chencho Villalpando 2023-09-19 00:00:00 2023-09-19 00:00:00 Outpatient Visit SFA [id number] Chencho Villalpando 2023-07-08 18:47:00 2023-07-08 20:47:00 Emergency X LORIN TAPIA [facility] [id number] [facility] 2023-07-08 18:47:00 2023-07-08 20:47:00 Emergency Lorin Tapia [facility] 1.2.840.114 350.1.13.10 4.2.7.2.686 [id number] [facility] 2023-05-09 08:18:18 2023-05-09 08:18:18 Outpatient SFA SFA [id number] Chencho Villalpando 2023-05-01 11:36:19 2023-05-01 11:36:19 Outpatient SFA SFA [id number] Chencho Villalpando 2023-04-25 11:35:30 2023-04-25 11:35:30 Outpatient SFA SFA [id number] Chencho Villalpando 2023-04-20 10:44:54 2023-04-20 10:44:54 Outpatient SFA SFA [id number] Chencho Villalpando 2023-03-27 09:46:57 2023-03-27 09:46:57 Outpatient SFA SFA [id number] Chencho Villalpando 2023-02-12 14:13:59 2023-02-12 14:13:59 Outpatient SFA SFA [id number] Chencho Villalpando 2023-02-06 15:17:11 2023-02-06 15:17:11 Outpatient SFA SFA [id number] Chencho Villalpando 2022-09-22 00:00:00 2022-09-22 00:00:00 Telephone Shellie Paul [facility] & CHILD HEALTH [facility] 1.2.840.114 350.1.13.10 4.2.7.2.686 [id number] [facility] 2022-07-27 10:18:01 2022-07-27 10:18:01 Outpatient SFA SFA [id number] Chencho Villalpando 2022-07-24 09:26:57 2022-07-24 09:26:57 Outpatient SFA SFA [id number] Chencho Villalpando 2022-07-21 16:00:46 2022-07-21 16:00:46 Outpatient SFA SFA [id number] Chencho Villalpando 2022-05-29 07:11:36 2022-05-29 23:59:00 Outpatient R SHELLIE PAUL [facility] [id number] [facility] 2022-05-29 07:11:36 2022-05-29 23:59:00 Hospital Encounter Shellie Paul [facility] 1.2.840.114 350.1.13.10 4.2.7.2.686 [id number] [facility] 2022-05-23 13:00:00 2022-05-23 13:00:00 Outpatient R GLADIS SULLIVAN [facility] [id number] [facility] 2022-04-25 00:00:00 2022-04-25 00:00:00 Telephone Amy Beard [facility] 1.2.840.114 350.1.13.10 4.2.7.2.686 [id number] [facility] 2022-03-28 00:00:00 2022-03-28 00:00:00 Outpatient R SHELLIE PAUL [facility] [id number] [facility] 2022-03-13 08:00:33 2022-03-13 08:00:33 Outpatient SFA SFA [id number] Chencho Villalpando 2022-03-13 00:00:00 2022-03-13 00:00:00 Outpatient Visit [id number] 2022-02-28 11:32:14 2022-02-28 11:32:14 Outpatient SFA SFA [id number] Chencho Villalpando 2022-02-28 00:00:00 2022-02-28 00:00:00 Outpatient Visit [id number] 2022-01-03 00:00:00 2022-01-03 00:00:00 Telephone Amy Beard [facility] & CHILD [facility] .840.114 350.1.13.10 4.2.7.2.686 [id number] [facility] 2022-01-02 00:00:00 2022-01-02 00:00:00 Outpatient Visit [id number] 2021-12-16 00:00:00 2021-12-16 00:00:00 Outpatient Visit [id number] 2021-11-29 09:36:20 2021-11-29 23:59:00 Outpatient R SHELLIE PAUL [facility] [id number] [facility] 2021-11-29 09:36:20 2021-11-29 23:59:00 Hospital Encounter Shellie Paul [facility] ..114 350.1.13.10 4.2.7.2.686 [id number] [facility] 2021-09-13 00:00:00 2021-09-13 00:00:00 Telephone Shellie Paul [facility] & CHILD [facility] .840.114 350.1.13.10 4.2.7.2.686 [id number] [facility] 2021-09-01 14:45:00 2021-09-01 14:45:00 Outpatient R [facility] [id number] [facility] 2021-09-01 00:00:00 2021-09-01 00:00:00 Telephone Shellie Paul [facility] & CHILD [facility] 1.2.840.114 350.1.13.10 4.2.7.2.686 [id number] [facility] 2021-08-29 14:45:00 2021-08-29 14:53:14 Office Visit Shellie Paul [facility] & CHILD [facility] 1.2.840.114 350.1.13.10 4.2.7.2.686 [id number] [facility] 2021-08-29 14:45:00 2021-08-29 14:45:00 Outpatient R SHELLIE PAUL [facility] [id number] [facility] 2021-08-29 13:30:00 2021-08-29 14:29:07 Office Visit Shellie Paul [facility] & CHILD [facility] 1.2.840.114 350.1.13.10 4.2.7.2.686 [id number] [facility] 2021-08-29 13:30:00 2021-08-29 14:29:07 Outpatient R SHELLIE PAUL [facility] [id number] [facility] 2021-08-29 13:30:00 2021-08-29 14:29:07 Outpatient R SHELLIE PAUL [facility] [id number] [facility] 2021-08-29 13:00:00 2021-08-29 14:25:18 Outpatient R SHELLIE PAUL [facility] [id number] [facility] 2021-08-29 13:00:00 2021-08-29 14:25:18 Outpatient R SHELLIE PAUL [facility] [id number] [facility] 2021-08-29 00:00:00 2021-08-29 00:00:00 Orders Only Doctor Unassigned, [place] [facility] 1.2.840.114 350.1.13.10 4.2.7.2.686 [id number] [facility] 2021-08-12 00:00:00 2021-08-12 00:00:00 Orders Only Doctor Unassigned, [place] [facility] 1.2.840.114 350.1.13.10 4.2.7.2.686 [id number] [facility] Results Test Description Test Time Test Comments Results Result Co mments Source COMPREHENSIVE METABOLIC [id number] 05:01:37* Test Item Value Reference Range Interpretation Comme nts GLUCOSE (test code = 2217) 105 MG/DL 70-99 H BUN (test code = 2208) 8 MG/DL 8-23 CREATININE (test code = 2214) 0.76 MG/DL 0.60-1.30 eGFR (2020 CKD-EPI) (test co de = 21296) 90 ML/MIN/1.73 >60 CALC BUN/CREAT (test code = 2235) 11 RATIO 6-28 SODIUM (test code = 2231) 141 MEQ/L 133-146 POTASSIUM (test code = 2228) 3.8 MEQ/L 3.5-5.4 CHLORIDE (test code = 2215) 104 MEQ/L 95-107 CARBON DIOXIDE (test code = 2206) 26 MEQ/L 19-31 CALCIUM (test code = 2209) 9.6 MG/DL 8.5-10.5 PROTEIN, TOTAL (test code = 2229) 6.2 G/DL 6.1-8.3 ALBUMIN (test code = 2201) 4.3 G/DL 3.5-5.2 CALC GLOBULIN (test code = 2240) 1.9 G/DL 1.9-3.7 CALC A/G RATIO (test code = 2234) 2.3 RATIO 1.0-2.6 BILIRUBIN, TOTAL (test code = 2207) 0.4 MG/DL <=1.2 ALKALINE PHOSPHATASE (test code = 2204) 144 U/L 40-136 H AST (test code = 2218) 18 U/L 9-40 ALT (test code = 2219) 19 U/L 5-40 LIPID [id number] 05:01:37* Test Item Value Reference Range Interpretation Comme nts CHOLESTEROL (test code = 2210) 183 MG/DL <200 TRIGLYCERIDES (test code = 2232) 95 MG/DL <150 HDL CHOLESTEROL (test code = 2220) 48 MG/DL >39 CALC LDL CHOL (test code = 2237) 115 MG/DL <100 H NOTE: CALCULATED LDL IS BASED ON YENNIFER-MARLEY METHOD WHICHINCLUDES ADJUSTABLE TRIGLYCERIDE:VLDL CHOLESTEROL RATIO.THIS FACTOR VARIES BY MEASURED TRIGLYCERIDE AND NON-HDLCHOLESTEROL CONCENTRATIONS WITH INCREASED CALCULATED LDL SEENIN HIGHER TRIGLYCERIDE OR LOWER NON-HDL SPECIMENS. FOR MOREINFORMATION, SEE CLIENT ANNOUNCEMENT AT [email or web address] RISK RATIO LDL/HDL (test code = 2238) 2.40 RATIO <3.22 UNLESS OTHERW ISE INDICATED, ALL TESTING PERFORMED AT [facility] [address] [place] [address] SENIOR PRINCIPAL: KAREN GUAMAN M.D. CLIA NUMBER [id number] [facility] [place]. [id number] CBC W/AUTO DIFF WITH [id number] 04:57:07* Test Item Value Reference Range Interpretation Comme nts WBC (test code = 1001) 8.0 K/UL 3.5-11.0 RBC (test code = 1002) 5.10 M/UL 3.80-5.40 HEMOGLOBIN (test code = 1003) 13.4 G/DL 11.5-15.5 HEMATOCRIT (test code = 1004) 41.4 % 34.0-45.0 MCV (test code = 1005) 81.2 fL 80.0-99.0 MCH (test code = 1006) 26.3 PG 25.0-33.0 MCHC (test code = 1007) 32.4 G/DL 31.0-36.0 RDW (test code = 1038) 12.7 % 11.5-15.0 NEUTROPHILS (test code = 1008) 66.5 % LYMPHOCYTES (test code = 1010) 22.8 % MONOCYTES (test code = 1011) 6.8 % EOSINOPHILS (test code = 1012) 3.0 % BASOPHILS (test code = 1013) 0.5 % IMMATURE GRANULOCYTES (test code = 1036) 0.4 % NUCLEATED RBCS (test code = 1065) 0.0 /100 WBC'S See_Comment [Automated messa ge] The system which generated this result transmitted reference range: 0.0. The reference range was not used to interpret this result as normal/abnormal. PLATELET COUNT (test code = 1015) 241 K/UL 130-400 ABSOLUTE NEUTROPHILS (test code = 1066) 5.32 K/UL 1.50-7.50 ABSOLUTE LYMPHOCYTES (test code = 1067) 1.82 K/UL 1.00-4.00 ABSOLUTE MONOCYTES (test code = 1068) 0.54 K/UL 0.20-1.00 ABSOLUTE EOSINOPHILS (test code = 1040) 0.24 K/UL 0.00-0.50 ABSOLUTE BASOPHILS (test code = 1069) 0.04 K/UL 0.00-0.20 ABS IMMATURE GRANULOCYTES (test code = 1020) 0.03 K/UL 0.00-0.10 ABS NUCLEATED RBCS (test code = 53603) 0.00 K/UL 0.00-0.11 COMPREHENSIVE METABOLIC [id number] 00:00:00* Test Item Value Reference Range Interpretation Comme nts GLUCOSE (test code = 2217) 105 MG/DL BUN (test code = 2208) 8 MG/DL CREATININE (test code = 2214) 0.76 MG/DL eGFR (2020 CKD-EPI) (test co de = 11879) 90 ML/MIN/1.73 CALC BUN/CREAT (test code = 2235) 11 RATIO SODIUM (test code = 2231) 141 MEQ/L POTASSIUM (test code = 2228) 3.8 MEQ/L CHLORIDE (test code = 2215) 104 MEQ/L CARBON DIOXIDE (test code = 2206) 26 MEQ/L CALCIUM (test code = 2209) 9.6 MG/DL PROTEIN, TOTAL (test code = 2229) 6.2 G/DL ALBUMIN (test code = 2201) 4.3 G/DL CALC GLOBULIN (test code = 2240) 1.9 G/DL CALC A/G RATIO (test code = 2234) 2.3 RATIO BILIRUBIN, TOTAL (test code = 2207) 0.4 MG/DL ALKALINE PHOSPHATASE (test code = 2204) 144 U/L AST (test code = 2218) 18 U/L ALT (test code = 2219) 19 U/L Chencho VillalpandoCBC W/AUTO [id number] 00:00:00* Test Item Value Reference Range Interpretation Comme nts WBC (test code = 1001) 8.0 K/UL RBC (test code = 1002) 5.10 M/UL HEMOGLOBIN (test code = 1003) 13.4 G/DL HEMATOCRIT (test code = 1004) 41.4 % MCV (test code = 1005) 81.2 fL MCH (test code = 1006) 26.3 PG MCHC (test code = 1007) 32.4 G/DL RDW (test code = 1038) 12.7 % NEUTROPHILS (test code = 1008) 66.5 % LYMPHOCYTES (test code = 1010) 22.8 % MONOCYTES (test code = 1011) 6.8 % EOSINOPHILS (test code = 1012) 3.0 % BASOPHILS (test code = 1013) 0.5 % IMMATURE GRANULOCYTES (test code = 1036) 0.4 % NUCLEATED RBCS (test code = 1065) 0.0 /100WBC'S PLATELET COUNT (test code = 1015) 241 K/UL ABSOLUTE NEUTROPHILS (test c ode = 1066) 5.32 K/UL ABSOLUTE LYMPHOCYTES (test c ode = 1067) 1.82 K/UL ABSOLUTE MONOCYTES (test cod e = 1068) 0.54 K/UL ABSOLUTE EOSINOPHILS (test c ode = 1040) 0.24 K/UL ABSOLUTE BASOPHILS (test cod e = 1069) 0.04 K/UL ABS IMMATURE GRANULOCYTES (t est code = 1020) 0.03 K/UL ABS NUCLEATED RBCS (test cod e = 65052) 0.00 K/UL Chencho VillalpandoHEMOGLOBIN [id number] 00:00:00* Test Item Value Reference Range Interpretation Comme nts HEMOGLOBIN A1c (test code = 08873) 5.6 % Chencho VillalpandoLIPID [id number] 00:00:00* Test Item Value Reference Range Interpretation Comme nts CHOLESTEROL (test code = 2210) 183 MG/DL TRIGLYCERIDES (test code = 2232) 95 MG/DL HDL CHOLESTEROL (test code = 2220) 48 MG/DL CALC LDL CHOL (test code = 2237) 115 MG/DL RISK RATIO LDL/HDL (test cod e = 2238) 2.40 RATIO Chencho VillalpandoCOMPREHENSIVE METABOLIC [id number] 00:00:00* Test Item Value Reference Range Interpretation Comme nts GLUCOSE (test code = 2217) 105 MG/DL BUN (test code = 2208) 8 MG/DL CREATININE (test code = 2214) 0.76 MG/DL eGFR (2020 CKD-EPI) (test co de = 73892) 90 ML/MIN/1.73 CALC BUN/CREAT (test code = 2235) 11 RATIO SODIUM (test code = 2231) 141 MEQ/L POTASSIUM (test code = 2228) 3.8 MEQ/L CHLORIDE (test code = 2215) 104 MEQ/L CARBON DIOXIDE (test code = 2206) 26 MEQ/L CALCIUM (test code = 2209) 9.6 MG/DL PROTEIN, TOTAL (test code = 2229) 6.2 G/DL ALBUMIN (test code = 2201) 4.3 G/DL CALC GLOBULIN (test code = 2240) 1.9 G/DL CALC A/G RATIO (test code = 2234) 2.3 RATIO BILIRUBIN, TOTAL (test code = 2207) 0.4 MG/DL ALKALINE PHOSPHATASE (test code = 2204) 144 U/L AST (test code = 2218) 18 U/L ALT (test code = 2219) 19 U/L Chencho VillalpandoCBC W/AUTO [id number] 00:00:00* Test Item Value Reference Range Interpretation Comme nts WBC (test code = 1001) 8.0 K/UL RBC (test code = 1002) 5.10 M/UL HEMOGLOBIN (test code = 1003) 13.4 G/DL HEMATOCRIT (test code = 1004) 41.4 % MCV (test code = 1005) 81.2 fL MCH (test code = 1006) 26.3 PG MCHC (test code = 1007) 32.4 G/DL RDW (test code = 1038) 12.7 % NEUTROPHILS (test code = 1008) 66.5 % LYMPHOCYTES (test code = 1010) 22.8 % MONOCYTES (test code = 1011) 6.8 % EOSINOPHILS (test code = 1012) 3.0 % BASOPHILS (test code = 1013) 0.5 % IMMATURE GRANULOCYTES (test code = 1036) 0.4 % NUCLEATED RBCS (test code = 1065) 0.0 /100WBC'S PLATELET COUNT (test code = 1015) 241 K/UL ABSOLUTE NEUTROPHILS (test c ode = 1066) 5.32 K/UL ABSOLUTE LYMPHOCYTES (test c ode = 1067) 1.82 K/UL ABSOLUTE MONOCYTES (test cod e = 1068) 0.54 K/UL ABSOLUTE EOSINOPHILS (test c ode = 1040) 0.24 K/UL ABSOLUTE BASOPHILS (test cod e = 1069) 0.04 K/UL ABS IMMATURE GRANULOCYTES (t est code = 1020) 0.03 K/UL ABS NUCLEATED RBCS (test cod e = 62559) 0.00 K/UL Chencho VillalpandoHEMOGLOBIN [id number] 00:00:00* Test Item Value Reference Range Interpretation Comme nts HEMOGLOBIN A1c (test code = 26165) 5.6 % Chencho VillalpandoLIPID [id number] 00:00:00* Test Item Value Reference Range Interpretation Comme nts CHOLESTEROL (test code = 2210) 183 MG/DL TRIGLYCERIDES (test code = 2232) 95 MG/DL HDL CHOLESTEROL (test code = 2220) 48 MG/DL CALC LDL CHOL (test code = 2237) 115 MG/DL RISK RATIO LDL/HDL (test cod e = 2238) 2.40 RATIO Chencho VillalpandoCOMPREHENSIVE METABOLIC [id number] 00:00:00* Test Item Value Reference Range Interpretation Comme nts GLUCOSE (test code = 2217) 105 MG/DL BUN (test code = 2208) 8 MG/DL CREATININE (test code = 2214) 0.76 MG/DL eGFR (2020 CKD-EPI) (test co de = 54859) 90 ML/MIN/1.73 CALC BUN/CREAT (test code = 2235) 11 RATIO SODIUM (test code = 2231) 141 MEQ/L POTASSIUM (test code = 2228) 3.8 MEQ/L CHLORIDE (test code = 2215) 104 MEQ/L CARBON DIOXIDE (test code = 2206) 26 MEQ/L CALCIUM (test code = 2209) 9.6 MG/DL PROTEIN, TOTAL (test code = 2229) 6.2 G/DL ALBUMIN (test code = 2201) 4.3 G/DL CALC GLOBULIN (test code = 2240) 1.9 G/DL CALC A/G RATIO (test code = 2234) 2.3 RATIO BILIRUBIN, TOTAL (test code = 2207) 0.4 MG/DL ALKALINE PHOSPHATASE (test code = 2204) 144 U/L AST (test code = 2218) 18 U/L ALT (test code = 2219) 19 U/L Chencho VillalpandoCBC W/AUTO [id number] 00:00:00* Test Item Value Reference Range Interpretation Comme nts WBC (test code = 1001) 8.0 K/UL RBC (test code = 1002) 5.10 M/UL HEMOGLOBIN (test code = 1003) 13.4 G/DL HEMATOCRIT (test code = 1004) 41.4 % MCV (test code = 1005) 81.2 fL MCH (test code = 1006) 26.3 PG MCHC (test code = 1007) 32.4 G/DL RDW (test code = 1038) 12.7 % NEUTROPHILS (test code = 1008) 66.5 % LYMPHOCYTES (test code = 1010) 22.8 % MONOCYTES (test code = 1011) 6.8 % EOSINOPHILS (test code = 1012) 3.0 % BASOPHILS (test code = 1013) 0.5 % IMMATURE GRANULOCYTES (test code = 1036) 0.4 % NUCLEATED RBCS (test code = 1065) 0.0 /100WBC'S PLATELET COUNT (test code = 1015) 241 K/UL ABSOLUTE NEUTROPHILS (test c ode = 1066) 5.32 K/UL ABSOLUTE LYMPHOCYTES (test c ode = 1067) 1.82 K/UL ABSOLUTE MONOCYTES (test cod e = 1068) 0.54 K/UL ABSOLUTE EOSINOPHILS (test c ode = 1040) 0.24 K/UL ABSOLUTE BASOPHILS (test cod e = 1069) 0.04 K/UL ABS IMMATURE GRANULOCYTES (t est code = 1020) 0.03 K/UL ABS NUCLEATED RBCS (test cod e = 16132) 0.00 K/UL Chencho VillalpandoHEMOGLOBIN [id number] 00:00:00* Test Item Value Reference Range Interpretation Comme nts HEMOGLOBIN A1c (test code = 33876) 5.6 % Chencho VillalpandoLIPID [id number] 00:00:00* Test Item Value Reference Range Interpretation Comme nts CHOLESTEROL (test code = 2210) 183 MG/DL TRIGLYCERIDES (test code = 2232) 95 MG/DL HDL CHOLESTEROL (test code = 2220) 48 MG/DL CALC LDL CHOL (test code = 2237) 115 MG/DL RISK RATIO LDL/HDL (test cod e = 2238) 2.40 RATIO Chencho VillalpandoCOMPREHENSIVE METABOLIC [id number] 00:00:00* Test Item Value Reference Range Interpretation Comme nts GLUCOSE (test code = 2217) 105 MG/DL BUN (test code = 2208) 8 MG/DL CREATININE (test code = 2214) 0.76 MG/DL eGFR (2020 CKD-EPI) (test co de = 55270) 90 ML/MIN/1.73 CALC BUN/CREAT (test code = 2235) 11 RATIO SODIUM (test code = 2231) 141 MEQ/L POTASSIUM (test code = 2228) 3.8 MEQ/L CHLORIDE (test code = 2215) 104 MEQ/L CARBON DIOXIDE (test code = 2206) 26 MEQ/L CALCIUM (test code = 2209) 9.6 MG/DL PROTEIN, TOTAL (test code = 2229) 6.2 G/DL ALBUMIN (test code = 2201) 4.3 G/DL CALC GLOBULIN (test code = 2240) 1.9 G/DL CALC A/G RATIO (test code = 2234) 2.3 RATIO BILIRUBIN, TOTAL (test code = 2207) 0.4 MG/DL ALKALINE PHOSPHATASE (test code = 2204) 144 U/L AST (test code = 2218) 18 U/L ALT (test code = 2219) 19 U/L Chencho VillalpandoCBC W/AUTO [id number] 00:00:00* Test Item Value Reference Range Interpretation Comme nts WBC (test code = 1001) 8.0 K/UL RBC (test code = 1002) 5.10 M/UL HEMOGLOBIN (test code = 1003) 13.4 G/DL HEMATOCRIT (test code = 1004) 41.4 % MCV (test code = 1005) 81.2 fL MCH (test code = 1006) 26.3 PG MCHC (test code = 1007) 32.4 G/DL RDW (test code = 1038) 12.7 % NEUTROPHILS (test code = 1008) 66.5 % LYMPHOCYTES (test code = 1010) 22.8 % MONOCYTES (test code = 1011) 6.8 % EOSINOPHILS (test code = 1012) 3.0 % BASOPHILS (test code = 1013) 0.5 % IMMATURE GRANULOCYTES (test code = 1036) 0.4 % NUCLEATED RBCS (test code = 1065) 0.0 /100WBC'S PLATELET COUNT (test code = 1015) 241 K/UL ABSOLUTE NEUTROPHILS (test c ode = 1066) 5.32 K/UL ABSOLUTE LYMPHOCYTES (test c ode = 1067) 1.82 K/UL ABSOLUTE MONOCYTES (test cod e = 1068) 0.54 K/UL ABSOLUTE EOSINOPHILS (test c ode = 1040) 0.24 K/UL ABSOLUTE BASOPHILS (test cod e = 1069) 0.04 K/UL ABS IMMATURE GRANULOCYTES (t est code = 1020) 0.03 K/UL ABS NUCLEATED RBCS (test cod e = 32540) 0.00 K/UL Chencho VillalpandoHEMOGLOBIN [id number] 00:00:00* Test Item Value Reference Range Interpretation Comme nts HEMOGLOBIN A1c (test code = 00727) 5.6 % Chencho VillalpandoLIPID [id number] 00:00:00* Test Item Value Reference Range Interpretation Comme nts CHOLESTEROL (test code = 2210) 183 MG/DL TRIGLYCERIDES (test code = 2232) 95 MG/DL HDL CHOLESTEROL (test code = 2220) 48 MG/DL CALC LDL CHOL (test code = 2237) 115 MG/DL RISK RATIO LDL/HDL (test cod e = 2238) 2.40 RATIO Chencho VillalpandoXR LUMBAR SPINE 3 [id number] 02:32:18ORDERING PHYSICIAN: LORIN TAPIA. CLINICAL HISTORY: Low back pain. . TECHNIQUE: 3 views of the lumbar spine TECHNICAL QUALITY: Adequate COMPARISON: None [facility] [id number] 02:31:33ORDERING PHYSICIAN: LORIN TAPIA. CLINICAL HISTORY: left knee pain . . TECHNIQUE: 3 views of th e left knee TECHNICAL QUALITY: Adequate COMPARISON: None [facility] [id number] 06:52:57* Test Item Value Reference Range Interpretation Comme nts VITAMIN D, 25 OH (test code = 4958) 20 NG/ML SEE BELOW L EFFECTIVE 01/2023, PLEASE NOTE NEW METHODOLOGY IS ELECTROCHEMILUMINESCENCE BINDING ASSAY. NOTE: 25-HYDROXYVITAMIN D ASSAY INCLUDES 25-HYDROXYVITAMIN D2 AND D3. INTERPRETIVE RANGES PEDIATRIC (<17 YEARS) . . . . . . . . . . . NG/ML 20-100ADULT: INSUFFICIENT . . . . . . . . . . . . . . NG/ML <20 SUBOPTIMAL . . . . . . . . . . . . . . . NG/ML 20-29 OPTIMAL . . . . . . . . . . . . . . . . . NG/ML 30-100 TSH, THIRD [id number] 06:50:58* Test Item Value Reference Range Interpretation Comme nts TSH, THIRD GENERATION (test code = 2821) 1.560 UIU/ML 0.400-4.100 UNLESS OTHERWISE INDICATED, ALL TESTING PERFORMED AT [facility] [address] [place] [address] SENIOR PRINCIPAL: KAREN GUAMAN M.D. CLIA NUMBER [id number] [facility] [place]. [id number] LIPID [id number] 06:00:10* Test Item Value Reference Range Interpretation Comme nts CHOLESTEROL (test code = 2210) 186 MG/DL <200 TRIGLYCERIDES (test code = 2232) 83 MG/DL <150 HDL CHOLESTEROL (test code = 2220) 55 MG/DL >39 CALC LDL CHOL (test code = 2237) 113 MG/DL <100 H NOTE: CALCULATED LDL IS BASED ON YENNIFER-MARLEY METHOD WHICHINCLUDES ADJUSTABLE TRIGLYCERIDE:VLDL CHOLESTEROL RATIO.THIS FACTOR VARIES BY MEASURED TRIGLYCERIDE AND NON-HDLCHOLESTEROL CONCENTRATIONS WITH INCREASED CALCULATED LDL SEENIN HIGHER TRIGLYCERIDE OR LOWER NON-HDL SPECIMENS. FOR MOREINFORMATION, SEE CLIENT ANNOUNCEMENT AT [email or web address] RISK RATIO LDL/HDL (test code = 2238) 2.05 RATIO <3.22 COMPREHENSIVE METABOLIC [id number] 06:00:10* Test Item Value Reference Range Interpretation Comme nts GLUCOSE (test code = 2216) 103 MG/DL 70-99 H BUN (test code = 2207) 9 MG/DL 6-20 CREATININE (test code = 2214) 0.83 MG/DL 0.60-1.30 eGFR (2020 CKD-EPI) (test co de = 59620) 81 ML/MIN/1.73 >60 CALC BUN/CREAT (test code = 5) 11 RATIO 6-28 SODIUM (test code = 223) 144 MEQ/L 133-146 POTASSIUM (test code = 2228) 4.2 MEQ/L 3.5-5.4 CHLORIDE (test code = 2214) 107 MEQ/L 95-107 CARBON DIOXIDE (test code = 2206) 27 MEQ/L 19-31 CALCIUM (test code = 9) 9.4 MG/DL 8.5-10.5 PROTEIN, TOTAL (test code = 2228) 5.7 G/DL 6.1-8.3 L ALBUMIN (test code = 2200) 4.3 G/DL 3.5-5.2 CALC GLOBULIN (test code = 2240) 1.4 G/DL 1.9-3.7 L CALC A/G RATIO (test code = 4) 3.1 RATIO 1.0-2.6 H BILIRUBIN, TOTAL (test code = 2206) 0.6 MG/DL <=1.2 ALKALINE PHOSPHATASE (test code = 2203) 121 U/L 40-136 AST (test code = 2217) 16 U/L 9-40 ALT (test code = 2219) 11 U/L 5-40 HEMOGLOBIN [id number] 05:51:57* Test Item Value Reference Range Interpretation Comme nts HEMOGLOBIN A1c (test code = 14565) 5.3 % 4.2-5.6 CBC W/AUTO DIFF WITH [id number] 05:34:54* Test Item Value Reference Range Interpretation Comme nts WBC (test code = 1001) 6.6 K/UL 3.5-11.0 RBC (test code = 1002) 5.25 M/UL 3.80-5.40 HEMOGLOBIN (test code = 1003) 14.1 G/DL 11.5-15.5 HEMATOCRIT (test code = 1004) 42.6 % 34.0-45.0 MCV (test code = 1005) 81.1 fL 80.0-99.0 MCH (test code = 1006) 26.9 PG 25.0-33.0 MCHC (test code = 1007) 33.1 G/DL 31.0-36.0 RDW (test code = 1038) 12.8 % 11.5-15.0 NEUTROPHILS (test code = 1008) 65.4 % LYMPHOCYTES (test code = 1010) 25.5 % MONOCYTES (test code = 1011) 5.3 % EOSINOPHILS (test code = 1012) 2.7 % BASOPHILS (test code = 1013) 0.6 % IMMATURE GRANULOCYTES (test code = 1036) 0.5 % NUCLEATED RBCS (test code = 1065) 0.0 /100 WBC'S See_Comment [Automated Arta[employer] ge] The system which generated this result transmitted reference range: 0.0. The reference range was not used to interpret this result as normal/abnormal. PLATELET COUNT (test code = 1015) 235 K/UL 130-400 ABSOLUTE NEUTROPHILS (test code = 1066) 4.32 K/UL 1.50-7.50 ABSOLUTE LYMPHOCYTES (test code = 1067) 1.68 K/UL 1.00-4.00 ABSOLUTE MONOCYTES (test code = 1068) 0.35 K/UL 0.20-1.00 ABSOLUTE EOSINOPHILS (test code = 1040) 0.18 K/UL 0.00-0.50 ABSOLUTE BASOPHILS (test code = 1069) 0.04 K/UL 0.00-0.20 ABS IMMATURE GRANULOCYTES (test code = 1020) 0.03 K/UL 0.00-0.10 ABS NUCLEATED RBCS (test code = 35681) 0.00 K/UL 0.00-0.11 LIPID [id number] 00:00:00* Test Item Value Reference Range Interpretation Comme nts CHOLESTEROL (test code = 2210) 186 MG/DL TRIGLYCERIDES (test code = 2232) 83 MG/DL HDL CHOLESTEROL (test code = 2220) 55 MG/DL CALC LDL CHOL (test code = 2237) 113 MG/DL RISK RATIO LDL/HDL (test cod e = 2238) 2.05 RATIO Chencho F AustinCOMPREHENSIVE METABOLIC [id number] 00:00:00* Test Item Value Reference Range Interpretation Comme nts GLUCOSE (test code = 2217) 103 MG/DL BUN (test code = 2208) 9 MG/DL CREATININE (test code = 2214) 0.83 MG/DL eGFR (2020 CKD-EPI) (test co de = 81133) 81 ML/MIN/1.73 CALC BUN/CREAT (test code = 2235) 11 RATIO SODIUM (test code = 2231) 144 MEQ/L POTASSIUM (test code = 2228) 4.2 MEQ/L CHLORIDE (test code = 2215) 107 MEQ/L CARBON DIOXIDE (test code = 2206) 27 MEQ/L CALCIUM (test code = 2209) 9.4 MG/DL PROTEIN, TOTAL (test code = 2229) 5.7 G/DL ALBUMIN (test code = 2201) 4.3 G/DL CALC GLOBULIN (test code = 2240) 1.4 G/DL CALC A/G RATIO (test code = 2234) 3.1 RATIO BILIRUBIN, TOTAL (test code = 2207) 0.6 MG/DL ALKALINE PHOSPHATASE (test code = 2204) 121 U/L AST (test code = 2218) 16 U/L ALT (test code = 2219) 11 U/L Chencho VillalpandoVITAMIN D, 25 [id number] 00:00:00* Test Item Value Reference Range Interpretation Comme [facility] VITAMIN D, 25 OH (test code = 4958) 20 NG/ML Chencho iVllalpandoTSH, THIRD [id number] 00:00:00* Test Item Value Reference Range Interpretation Comme [facility] TSH, THIRD GENERATION (test code = 2821) 1.560 UIU/ML Chencho VillalpandoCBC W/AUTO [id number] 00:00:00* Test Item Value Reference Range Interpretation Comme nts WBC (test code = 1001) 6.6 K/UL RBC (test code = 1002) 5.25 M/UL HEMOGLOBIN (test code = 1003) 14.1 G/DL HEMATOCRIT (test code = 1004) 42.6 % MCV (test code = 1005) 81.1 fL MCH (test code = 1006) 26.9 PG MCHC (test code = 1007) 33.1 G/DL RDW (test code = 1038) 12.8 % NEUTROPHILS (test code = 1008) 65.4 % LYMPHOCYTES (test code = 1010) 25.5 % MONOCYTES (test code = 1011) 5.3 % EOSINOPHILS (test code = 1012) 2.7 % BASOPHILS (test code = 1013) 0.6 % IMMATURE GRANULOCYTES (test code = 1036) 0.5 % NUCLEATED RBCS (test code = 1065) 0.0 /100WBC'S PLATELET COUNT (test code = 1015) 235 K/UL ABSOLUTE NEUTROPHILS (test c ode = 1066) 4.32 K/UL ABSOLUTE LYMPHOCYTES (test c ode = 1067) 1.68 K/UL ABSOLUTE MONOCYTES (test cod e = 1068) 0.35 K/UL ABSOLUTE EOSINOPHILS (test c ode = 1040) 0.18 K/UL ABSOLUTE BASOPHILS (test cod e = 1069) 0.04 K/UL ABS IMMATURE GRANULOCYTES (t est code = 1020) 0.03 K/UL ABS NUCLEATED RBCS (test cod e = 88558) 0.00 K/UL Chencho VillalpandoHEMOGLOBIN [id number] 00:00:00* Test Item Value Reference Range Interpretation Comme nts HEMOGLOBIN A1c (test code = 63283) 5.3 % Chencho VillalpandoLIPID [id number] 00:00:00* Test Item Value Reference Range Interpretation Comme nts CHOLESTEROL (test code = 2210) 186 MG/DL TRIGLYCERIDES (test code = 2232) 83 MG/DL HDL CHOLESTEROL (test code = 2220) 55 MG/DL CALC LDL CHOL (test code = 2237) 113 MG/DL RISK RATIO LDL/HDL (test cod e = 2238) 2.05 RATIO Chencho VillalpandoCOMPREHENSIVE METABOLIC [id number] 00:00:00* Test Item Value Reference Range Interpretation Comme nts GLUCOSE (test code = 2217) 103 MG/DL BUN (test code = 2208) 9 MG/DL CREATININE (test code = 2214) 0.83 MG/DL eGFR (2020 CKD-EPI) (test co de = 20288) 81 ML/MIN/1.73 CALC BUN/CREAT (test code = 2235) 11 RATIO SODIUM (test code = 2231) 144 MEQ/L POTASSIUM (test code = 2228) 4.2 MEQ/L CHLORIDE (test code = 2215) 107 MEQ/L CARBON DIOXIDE (test code = 2206) 27 MEQ/L CALCIUM (test code = 2209) 9.4 MG/DL PROTEIN, TOTAL (test code = 2229) 5.7 G/DL ALBUMIN (test code = 2201) 4.3 G/DL CALC GLOBULIN (test code = 2240) 1.4 G/DL CALC A/G RATIO (test code = 2234) 3.1 RATIO BILIRUBIN, TOTAL (test code = 2207) 0.6 MG/DL ALKALINE PHOSPHATASE (test code = 2204) 121 U/L AST (test code = 2218) 16 U/L ALT (test code = 2219) 11 U/L Chencho VillalpandoVITAMIN D, 25 [id number] 00:00:00* Test Item Value Reference Range Interpretation Comme [facility] VITAMIN D, 25 OH (test code = 4958) 20 NG/ML Chencho VillalpandoTSH, THIRD [id number] 00:00:00* Test Item Value Reference Range Interpretation Comme [facility] TSH, THIRD GENERATION (test code = 2821) 1.560 UIU/ML Chencho VillalpandoCBC W/AUTO [id number] 00:00:00* Test Item Value Reference Range Interpretation Comme nts WBC (test code = 1001) 6.6 K/UL RBC (test code = 1002) 5.25 M/UL HEMOGLOBIN (test code = 1003) 14.1 G/DL HEMATOCRIT (test code = 1004) 42.6 % MCV (test code = 1005) 81.1 fL MCH (test code = 1006) 26.9 PG MCHC (test code = 1007) 33.1 G/DL RDW (test code = 1038) 12.8 % NEUTROPHILS (test code = 1008) 65.4 % LYMPHOCYTES (test code = 1010) 25.5 % MONOCYTES (test code = 1011) 5.3 % EOSINOPHILS (test code = 1012) 2.7 % BASOPHILS (test code = 1013) 0.6 % IMMATURE GRANULOCYTES (test code = 1036) 0.5 % NUCLEATED RBCS (test code = 1065) 0.0 /100WBC'S PLATELET COUNT (test code = 1015) 235 K/UL ABSOLUTE NEUTROPHILS (test c ode = 1066) 4.32 K/UL ABSOLUTE LYMPHOCYTES (test c ode = 1067) 1.68 K/UL ABSOLUTE MONOCYTES (test cod e = 1068) 0.35 K/UL ABSOLUTE EOSINOPHILS (test c ode = 1040) 0.18 K/UL ABSOLUTE BASOPHILS (test cod e = 1069) 0.04 K/UL ABS IMMATURE GRANULOCYTES (t est code = 1020) 0.03 K/UL ABS NUCLEATED RBCS (test cod e = 32934) 0.00 K/UL Chencho VillalpandoHEMOGLOBIN [id number] 00:00:00* Test Item Value Reference Range Interpretation Comme nts HEMOGLOBIN A1c (test code = 85437) 5.3 % Chencho VillalpandoLIPID [id number] 00:00:00* Test Item Value Reference Range Interpretation Comme nts CHOLESTEROL (test code = 2210) 186 MG/DL TRIGLYCERIDES (test code = 2232) 83 MG/DL HDL CHOLESTEROL (test code = 2220) 55 MG/DL CALC LDL CHOL (test code = 2237) 113 MG/DL RISK RATIO LDL/HDL (test cod e = 2238) 2.05 RATIO Chencho VillalpandoCOMPREHENSIVE METABOLIC [id number] 00:00:00* Test Item Value Reference Range Interpretation Comme nts GLUCOSE (test code = 2217) 103 MG/DL BUN (test code = 2208) 9 MG/DL CREATININE (test code = 2214) 0.83 MG/DL eGFR (2020 CKD-EPI) (test co de = 79194) 81 ML/MIN/1.73 CALC BUN/CREAT (test code = 2235) 11 RATIO SODIUM (test code = 2231) 144 MEQ/L POTASSIUM (test code = 2228) 4.2 MEQ/L CHLORIDE (test code = 2215) 107 MEQ/L CARBON DIOXIDE (test code = 2206) 27 MEQ/L CALCIUM (test code = 2209) 9.4 MG/DL PROTEIN, TOTAL (test code = 2229) 5.7 G/DL ALBUMIN (test code = 2201) 4.3 G/DL CALC GLOBULIN (test code = 2240) 1.4 G/DL CALC A/G RATIO (test code = 2234) 3.1 RATIO BILIRUBIN, TOTAL (test code = 2207) 0.6 MG/DL ALKALINE PHOSPHATASE (test code = 2204) 121 U/L AST (test code = 2218) 16 U/L ALT (test code = 2219) 11 U/L Chencho VillalpandoVITAMIN D, 25 [id number] 00:00:00* Test Item Value Reference Range Interpretation Comme nts VITAMIN D, 25 OH (test code = 4958) 20 NG/ML Chencho VillalpandoTSH, THIRD [id number] 00:00:00* Test Item Value Reference Range Interpretation Comme nts TSH, THIRD GENERATION (test code = 2821) 1.560 UIU/ML Chencho iVllalpandoCBC W/AUTO [id number] 00:00:00* Test Item Value Reference Range Interpretation Comme nts WBC (test code = 1001) 6.6 K/UL RBC (test code = 1002) 5.25 M/UL HEMOGLOBIN (test code = 1003) 14.1 G/DL HEMATOCRIT (test code = 1004) 42.6 % MCV (test code = 1005) 81.1 fL MCH (test code = 1006) 26.9 PG MCHC (test code = 1007) 33.1 G/DL RDW (test code = 1038) 12.8 % NEUTROPHILS (test code = 1008) 65.4 % LYMPHOCYTES (test code = 1010) 25.5 % MONOCYTES (test code = 1011) 5.3 % EOSINOPHILS (test code = 1012) 2.7 % BASOPHILS (test code = 1013) 0.6 % IMMATURE GRANULOCYTES (test code = 1036) 0.5 % NUCLEATED RBCS (test code = 1065) 0.0 /100WBC'S PLATELET COUNT (test code = 1015) 235 K/UL ABSOLUTE NEUTROPHILS (test c ode = 1066) 4.32 K/UL ABSOLUTE LYMPHOCYTES (test c ode = 1067) 1.68 K/UL ABSOLUTE MONOCYTES (test cod e = 1068) 0.35 K/UL ABSOLUTE EOSINOPHILS (test c ode = 1040) 0.18 K/UL ABSOLUTE BASOPHILS (test cod e = 1069) 0.04 K/UL ABS IMMATURE GRANULOCYTES (t est code = 1020) 0.03 K/UL ABS NUCLEATED RBCS (test cod e = 45322) 0.00 K/UL Chencho VillalpandoHEMOGLOBIN [id number] 00:00:00* Test Item Value Reference Range Interpretation Comme nts HEMOGLOBIN A1c (test code = 50842) 5.3 % Chencho VillalpandoLIPID [id number] 00:00:00* Test Item Value Reference Range Interpretation Comme nts CHOLESTEROL (test code = 2210) 186 MG/DL TRIGLYCERIDES (test code = 2232) 83 MG/DL HDL CHOLESTEROL (test code = 2220) 55 MG/DL CALC LDL CHOL (test code = 2237) 113 MG/DL RISK RATIO LDL/HDL (test cod e = 2238) 2.05 RATIO Chencho VillalpandoCOMPREHENSIVE METABOLIC [id number] 00:00:00* Test Item Value Reference Range Interpretation Comme nts GLUCOSE (test code = 2217) 103 MG/DL BUN (test code = 2208) 9 MG/DL CREATININE (test code = 2214) 0.83 MG/DL eGFR (2020 CKD-EPI) (test co de = 93462) 81 ML/MIN/1.73 CALC BUN/CREAT (test code = 2235) 11 RATIO SODIUM (test code = 2231) 144 MEQ/L POTASSIUM (test code = 2228) 4.2 MEQ/L CHLORIDE (test code = 2215) 107 MEQ/L CARBON DIOXIDE (test code = 2206) 27 MEQ/L CALCIUM (test code = 2209) 9.4 MG/DL PROTEIN, TOTAL (test code = 2229) 5.7 G/DL ALBUMIN (test code = 2201) 4.3 G/DL CALC GLOBULIN (test code = 2240) 1.4 G/DL CALC A/G RATIO (test code = 2234) 3.1 RATIO BILIRUBIN, TOTAL (test code = 2207) 0.6 MG/DL ALKALINE PHOSPHATASE (test code = 2204) 121 U/L AST (test code = 2218) 16 U/L ALT (test code = 2219) 11 U/L Chencho VillalpandoVITAMIN D, 25 [id number] 00:00:00* Test Item Value Reference Range Interpretation Comme [facility] VITAMIN D, 25 OH (test code = 4958) 20 NG/ML Chencho VillalpandoTSH, THIRD [id number] 00:00:00* Test Item Value Reference Range Interpretation Comme [facility] TSH, THIRD GENERATION (test code = 2821) 1.560 UIU/ML Chencho VillalpandoCBC W/AUTO [id number] 00:00:00* Test Item Value Reference Range Interpretation Comme nts WBC (test code = 1001) 6.6 K/UL RBC (test code = 1002) 5.25 M/UL HEMOGLOBIN (test code = 1003) 14.1 G/DL HEMATOCRIT (test code = 1004) 42.6 % MCV (test code = 1005) 81.1 fL MCH (test code = 1006) 26.9 PG MCHC (test code = 1007) 33.1 G/DL RDW (test code = 1038) 12.8 % NEUTROPHILS (test code = 1008) 65.4 % LYMPHOCYTES (test code = 1010) 25.5 % MONOCYTES (test code = 1011) 5.3 % EOSINOPHILS (test code = 1012) 2.7 % BASOPHILS (test code = 1013) 0.6 % IMMATURE GRANULOCYTES (test code = 1036) 0.5 % NUCLEATED RBCS (test code = 1065) 0.0 /100WBC'S PLATELET COUNT (test code = 1015) 235 K/UL ABSOLUTE NEUTROPHILS (test c ode = 1066) 4.32 K/UL ABSOLUTE LYMPHOCYTES (test c ode = 1067) 1.68 K/UL ABSOLUTE MONOCYTES (test cod e = 1068) 0.35 K/UL ABSOLUTE EOSINOPHILS (test c ode = 1040) 0.18 K/UL ABSOLUTE BASOPHILS (test cod e = 1069) 0.04 K/UL ABS IMMATURE GRANULOCYTES (t est code = 1020) 0.03 K/UL ABS NUCLEATED RBCS (test cod e = 20695) 0.00 K/UL Chencho VillalpandoHEMOGLOBIN [id number] 00:00:00* Test Item Value Reference Range Interpretation Comme nts HEMOGLOBIN A1c (test code = 76892) 5.3 % Chencho VillalpandoLIPID [id number] 00:00:00* Test Item Value Reference Range Interpretation Comme nts CHOLESTEROL (test code = 2210) 186 MG/DL TRIGLYCERIDES (test code = 2232) 83 MG/DL HDL CHOLESTEROL (test code = 2220) 55 MG/DL CALC LDL CHOL (test code = 2237) 113 MG/DL RISK RATIO LDL/HDL (test cod e = 2238) 2.05 RATIO Chencho VillalpandoCOMPREHENSIVE METABOLIC [id number] 00:00:00* Test Item Value Reference Range Interpretation Comme nts GLUCOSE (test code = 7) 103 MG/DL BUN (test code = 2208) 9 MG/DL CREATININE (test code = 2214) 0.83 MG/DL eGFR (2020 CKD-EPI) (test co de = 69565) 81 ML/MIN/1.73 CALC BUN/CREAT (test code = 2235) 11 RATIO SODIUM (test code = 2231) 144 MEQ/L POTASSIUM (test code = 2228) 4.2 MEQ/L CHLORIDE (test code = 2215) 107 MEQ/L CARBON DIOXIDE (test code = 2206) 27 MEQ/L CALCIUM (test code = 2209) 9.4 MG/DL PROTEIN, TOTAL (test code = 222) 5.7 G/DL ALBUMIN (test code = 220) 4.3 G/DL CALC GLOBULIN (test code = 2240) 1.4 G/DL CALC A/G RATIO (test code = 2234) 3.1 RATIO BILIRUBIN, TOTAL (test code = 2206) 0.6 MG/DL ALKALINE PHOSPHATASE (test code = 2204) 121 U/L AST (test code = 2218) 16 U/L ALT (test code = 2219) 11 U/L Chencho VillalpandoVITAMIN D, 25 [id number] 00:00:00* Test Item Value Reference Range Interpretation Comme [facility] VITAMIN D, 25 OH (test code = 4958) 20 NG/ML Chencho VillalpandoTSH, THIRD [id number] 00:00:00* Test Item Value Reference Range Interpretation Comme nts TSH, THIRD GENERATION (test code = 2821) 1.560 UIU/ML Chencho VillalpandoCBC W/AUTO [id number] 00:00:00* Test Item Value Reference Range Interpretation Comme nts WBC (test code = 1001) 6.6 K/UL RBC (test code = 1002) 5.25 M/UL HEMOGLOBIN (test code = 1003) 14.1 G/DL HEMATOCRIT (test code = 1004) 42.6 % MCV (test code = 1005) 81.1 fL MCH (test code = 1006) 26.9 PG MCHC (test code = 1007) 33.1 G/DL RDW (test code = 1038) 12.8 % NEUTROPHILS (test code = 1008) 65.4 % LYMPHOCYTES (test code = 1010) 25.5 % MONOCYTES (test code = 1011) 5.3 % EOSINOPHILS (test code = 1012) 2.7 % BASOPHILS (test code = 1013) 0.6 % IMMATURE GRANULOCYTES (test code = 1036) 0.5 % NUCLEATED RBCS (test code = 1065) 0.0 /100WBC'S PLATELET COUNT (test code = 1015) 235 K/UL ABSOLUTE NEUTROPHILS (test c ode = 1066) 4.32 K/UL ABSOLUTE LYMPHOCYTES (test c ode = 1067) 1.68 K/UL ABSOLUTE MONOCYTES (test cod e = 1068) 0.35 K/UL ABSOLUTE EOSINOPHILS (test c ode = 1040) 0.18 K/UL ABSOLUTE BASOPHILS (test cod e = 1069) 0.04 K/UL ABS IMMATURE GRANULOCYTES (t est code = 1020) 0.03 K/UL ABS NUCLEATED RBCS (test cod e = 97681) 0.00 K/UL Chencho VillalpandoHEMOGLOBIN [id number] 00:00:00* Test Item Value Reference Range Interpretation Comme nts HEMOGLOBIN A1c (test code = 15164) 5.3 % Chencho VillalpandoHEPATITIS PANEL, [id number] 05:48:44* Test Item Value Reference Range Interpretation Comme nts HEPATITIS A IgM (test code = 93581) NON-REACTIVE NON-REACTIVE HEPATITIS B CORE IgM (test code = 4644) NON-REACTIVE NON-REACTIVE HEPATITIS B SURF AG (test code = 2739) NON-REACTIVE NON-REACTIVE HEPATITIS C ANTIBODY (test code = 4675) NON-REACTIVE NON-REACTIVE INTERPRETATION HEPATITIS A: (test code = 2552) (NOTE) Hepatitis A sero logy shows no evidence of acute hepatitis A. INTERPRETATION HEPATITIS B: (test code = 36850) (NOTE) Hepatitis B sero logy shows no evidence of acute hepatitis B andno indication of exposure to hepatitis B virus in the previous carly eight months. INTERPRETATION HEPATITIS C: (test code = 83369) (NOTE) Hepatitis C sero logy shows no evidence of exposure to hepatitisC virus at this time. It can take up to 12 months after exposure tothe hepatitis C virus for antibodies to become detectable in the blood in certain patients. UNLESS OTHERWISE INDICATED, ALL TESTING PERFORMED AT [facility] [address] [place] [id number] SENIOR PRINCIPAL: KAREN GUAMAN M.D. IA NUMBER [id number] [facility] [place]. [id number] ACUTE HEPATITIS [id number] 00:00:00* Test Item Value Reference Range Interpretation Comme nts HEPATITIS A IgM (test code = 02382) NON-REACTIVE HEPATITIS B CORE IgM (test c ode = 4644) NON-REACTIVE HEPATITIS B SURF AG (test co de = 2739) NON-REACTIVE HEPATITIS C ANTIBODY (test c ode = 4675) NON-REACTIVE INTERPRETATION HEPATITIS A: (test code = 2552) (NOTE) INTERPRETATION HEPATITIS B: (test code = 56596) (NOTE) INTERPRETATION HEPATITIS C: (test code = 22037) (NOTE) Chencho Mercado [facility] HEPATITIS [id number] 00:00:00* Test Item Value Reference Range Interpretation Comme nts HEPATITIS A IgM (test code = 35990) NON-REACTIVE HEPATITIS B CORE IgM (test c ode = 4644) NON-REACTIVE HEPATITIS B SURF AG (test co de = 2739) NON-REACTIVE HEPATITIS C ANTIBODY (test c ode = 4675) NON-REACTIVE INTERPRETATION HEPATITIS A: (test code = 2552) (NOTE) INTERPRETATION HEPATITIS B: (test code = 41307) (NOTE) INTERPRETATION HEPATITIS C: (test code = 45230) (NOTE) [facility] [id number] 00:00:00* Test Item Value Reference Range Interpretation Comme nts HEPATITIS A IgM (test code = 17938) NON-REACTIVE HEPATITIS B CORE IgM (test c ode = 4644) NON-REACTIVE HEPATITIS B SURF AG (test co de = 2739) NON-REACTIVE HEPATITIS C ANTIBODY (test c ode = 4675) NON-REACTIVE INTERPRETATION HEPATITIS A: (test code = 2552) (NOTE) INTERPRETATION HEPATITIS B: (test code = 84466) (NOTE) INTERPRETATION HEPATITIS C: (test code = 55410) (NOTE) [facility] [id number] 00:00:00* Test Item Value Reference Range Interpretation Comme nts HEPATITIS A IgM (test code = 23571) NON-REACTIVE HEPATITIS B CORE IgM (test c ode = 4644) NON-REACTIVE HEPATITIS B SURF AG (test co de = 2739) NON-REACTIVE HEPATITIS C ANTIBODY (test c ode = 4675) NON-REACTIVE INTERPRETATION HEPATITIS A: (test code = 2552) (NOTE) INTERPRETATION HEPATITIS B: (test code = 76839) (NOTE) INTERPRETATION HEPATITIS C: (test code = 39451) (NOTE) Chencho VillalpandoACUTE HEPATITIS [id number] 00:00:00* Test Item Value Reference Range Interpretation Comme nts HEPATITIS A IgM (test code = 93252) NON-REACTIVE HEPATITIS B CORE IgM (test c ode = 4644) NON-REACTIVE HEPATITIS B SURF AG (test co de = 2739) NON-REACTIVE HEPATITIS C ANTIBODY (test c ode = 4675) NON-REACTIVE INTERPRETATION HEPATITIS A: (test code = 2552) (NOTE) INTERPRETATION HEPATITIS B: (test code = 33874) (NOTE) INTERPRETATION HEPATITIS C: (test code = 34294) (NOTE) Chencho Mercado KwasiCOMPREHENSIVE METABOLIC PANEL [ADDED]2023-02-07 00:00:00* Test Item Value Reference Range Interpretation Comme nts GLUCOSE (test code = 2217) 93 MG/DL BUN (test code = 2208) 12 MG/DL CREATININE (test code = 2214) 0.78 MG/DL eGFR (2020 CKD-EPI) (test code = 91294) 105 ML/MIN/1.73 CALC BUN/CREAT (test code = 2235) 15 RATIO SODIUM (test code = 2231) 148 MEQ/L POTASSIUM (test code = 2228) 3.9 MEQ/L CHLORIDE (test code = 2215) 110 MEQ/L CARBON DIOXIDE (test code = 2206) 26 MEQ/L CALCIUM (test code = 2209) 9.7 MG/DL PROTEIN, TOTAL (test code = 2229) 6.0 G/DL ALBUMIN (test code = 2201) 4.4 G/DL CALC GLOBULIN (test code = 2240) 1.6 G/DL CALC A/G RATIO (test code = 2234) 2.8 RATIO BILIRUBIN, TOTAL (test code = 2207) 0.4 MG/DL ALKALINE PHOSPHATASE (test code = 2204) 111 U/L AST (test code = 2218) 13 U/L ALT (test code = 2219) 11 U/L Chencho VillalpandoLIPID PANEL [ADDED]2023-02-07 00:00:00* Test Item Value Reference Range Interpretation Comme nts CHOLESTEROL (test code = 2210) 168 MG/DL TRIGLYCERIDES (test code = 2232) 113 MG/DL HDL CHOLESTEROL (test code = 2220) 47 MG/DL CALC LDL CHOL (test code = 2237) 100 MG/DL RISK RATIO LDL/HDL (test cod e = 2238) 2.13 RATIO Chencho Mercado AustinCOMPREHENSIVE METABOLIC PANEL [ADDED]2023-02-07 00:00:00* Test Item Value Reference Range Interpretation Comme nts GLUCOSE (test code = 2217) 93 MG/DL BUN (test code = 2208) 12 MG/DL CREATININE (test code = 2214) 0.78 MG/DL eGFR (2020 CKD-EPI) (test code = 73774) 105 ML/MIN/1.73 CALC BUN/CREAT (test code = 2235) 15 RATIO SODIUM (test code = 2231) 148 MEQ/L POTASSIUM (test code = 2228) 3.9 MEQ/L CHLORIDE (test code = 2215) 110 MEQ/L CARBON DIOXIDE (test code = 2206) 26 MEQ/L CALCIUM (test code = 2209) 9.7 MG/DL PROTEIN, TOTAL (test code = 2229) 6.0 G/DL ALBUMIN (test code = 2201) 4.4 G/DL CALC GLOBULIN (test code = 2240) 1.6 G/DL CALC A/G RATIO (test code = 2234) 2.8 RATIO BILIRUBIN, TOTAL (test code = 2207) 0.4 MG/DL ALKALINE PHOSPHATASE (test code = 2204) 111 U/L AST (test code = 2218) 13 U/L ALT (test code = 2219) 11 U/L Chencho Mercaod AustinLIPID PANEL [ADDED]2023-02-07 00:00:00* Test Item Value Reference Range Interpretation Comme nts CHOLESTEROL (test code = 2210) 168 MG/DL TRIGLYCERIDES (test code = 2232) 113 MG/DL HDL CHOLESTEROL (test code = 2220) 47 MG/DL CALC LDL CHOL (test code = 2237) 100 MG/DL RISK RATIO LDL/HDL (test cod e = 2238) 2.13 RATIO Chencho Mercado AustinCOMPREHENSIVE METABOLIC PANEL [ADDED]2023-02-07 00:00:00* Test Item Value Reference Range Interpretation Comme nts GLUCOSE (test code = 2217) 93 MG/DL BUN (test code = 2208) 12 MG/DL CREATININE (test code = 2214) 0.78 MG/DL eGFR (2020 CKD-EPI) (test code = 81232) 105 ML/MIN/1.73 CALC BUN/CREAT (test code = 2235) 15 RATIO SODIUM (test code = 2231) 148 MEQ/L POTASSIUM (test code = 2228) 3.9 MEQ/L CHLORIDE (test code = 2215) 110 MEQ/L CARBON DIOXIDE (test code = 2206) 26 MEQ/L CALCIUM (test code = 2209) 9.7 MG/DL PROTEIN, TOTAL (test code = 2229) 6.0 G/DL ALBUMIN (test code = 2201) 4.4 G/DL CALC GLOBULIN (test code = 2240) 1.6 G/DL CALC A/G RATIO (test code = 2234) 2.8 RATIO BILIRUBIN, TOTAL (test code = 2207) 0.4 MG/DL ALKALINE PHOSPHATASE (test code = 2204) 111 U/L AST (test code = 2218) 13 U/L ALT (test code = 2219) 11 U/L Chencho VillalpandoLIPID PANEL [ADDED]2023-02-07 00:00:00* Test Item Value Reference Range Interpretation Comme nts CHOLESTEROL (test code = 2210) 168 MG/DL TRIGLYCERIDES (test code = 2232) 113 MG/DL HDL CHOLESTEROL (test code = 2220) 47 MG/DL CALC LDL CHOL (test code = 2237) 100 MG/DL RISK RATIO LDL/HDL (test cod e = 2238) 2.13 RATIO Chencho VillalpandoCOMPREHENSIVE METABOLIC PANEL [ADDED]2023-02-07 00:00:00* Test Item Value Reference Range Interpretation Comme nts GLUCOSE (test code = 2217) 93 MG/DL BUN (test code = 2208) 12 MG/DL CREATININE (test code = 2214) 0.78 MG/DL eGFR (2020 CKD-EPI) (test code = 71903) 105 ML/MIN/1.73 CALC BUN/CREAT (test code = 2235) 15 RATIO SODIUM (test code = 2231) 148 MEQ/L POTASSIUM (test code = 2228) 3.9 MEQ/L CHLORIDE (test code = 2215) 110 MEQ/L CARBON DIOXIDE (test code = 2206) 26 MEQ/L CALCIUM (test code = 2209) 9.7 MG/DL PROTEIN, TOTAL (test code = 2229) 6.0 G/DL ALBUMIN (test code = 2201) 4.4 G/DL CALC GLOBULIN (test code = 2240) 1.6 G/DL CALC A/G RATIO (test code = 2234) 2.8 RATIO BILIRUBIN, TOTAL (test code = 2207) 0.4 MG/DL ALKALINE PHOSPHATASE (test code = 2204) 111 U/L AST (test code = 2218) 13 U/L ALT (test code = 2219) 11 U/L Chencho Mercado AustinLIPID PANEL [ADDED]2023-02-07 00:00:00* Test Item Value Reference Range Interpretation Comme nts CHOLESTEROL (test code = 2210) 168 MG/DL TRIGLYCERIDES (test code = 2232) 113 MG/DL HDL CHOLESTEROL (test code = 2220) 47 MG/DL CALC LDL CHOL (test code = 2237) 100 MG/DL RISK RATIO LDL/HDL (test cod e = 2238) 2.13 RATIO Chencho Mercado KwasiCOMPREHENSIVE METABOLIC PANEL [ADDED]2023-02-07 00:00:00* Test Item Value Reference Range Interpretation Comme nts GLUCOSE (test code = 2217) 93 MG/DL BUN (test code = 2208) 12 MG/DL CREATININE (test code = 2214) 0.78 MG/DL eGFR (2020 CKD-EPI) (test code = 26391) 105 ML/MIN/1.73 CALC BUN/CREAT (test code = 2235) 15 RATIO SODIUM (test code = 2231) 148 MEQ/L POTASSIUM (test code = 2228) 3.9 MEQ/L CHLORIDE (test code = 2215) 110 MEQ/L CARBON DIOXIDE (test code = 2206) 26 MEQ/L CALCIUM (test code = 2209) 9.7 MG/DL PROTEIN, TOTAL (test code = 2229) 6.0 G/DL ALBUMIN (test code = 2201) 4.4 G/DL CALC GLOBULIN (test code = 2240) 1.6 G/DL CALC A/G RATIO (test code = 2234) 2.8 RATIO BILIRUBIN, TOTAL (test code = 2207) 0.4 MG/DL ALKALINE PHOSPHATASE (test code = 2204) 111 U/L AST (test code = 2218) 13 U/L ALT (test code = 2219) 11 U/L Chencho Mercado AustinLIPID PANEL [ADDED]2023-02-07 00:00:00* Test Item Value Reference Range Interpretation Comme nts CHOLESTEROL (test code = 2210) 168 MG/DL TRIGLYCERIDES (test code = 2232) 113 MG/DL HDL CHOLESTEROL (test code = 2220) 47 MG/DL CALC LDL CHOL (test code = 2237) 100 MG/DL RISK RATIO LDL/HDL (test cod e = 2238) 2.13 RATIO Chencho Mercado AustinHEMOGLOBIN [id number] 02:12:55* Test Item Value Reference Range Interpretation Comme nts HEMOGLOBIN A1c (test code = 50536) 5.3 % 4.2-5.6 [facility] has impo rtant pathology staff changes effective 07/19/2022. New pathology staff will provide uninterrupted, excellent patient care and clinical consultation. See URL: [email or web address]. UNLESS OTHERWISE INDICATED, ALL TESTING PERFORMED AT [facility] [address] [place] [address] SENIOR PRINCIPAL: KAREN GUMAAN M.D. CLIA NUMBER [id number] [facility] [place]. [id number] HEMOGLOBIN [id number] 00:00:00* Test Item Value Reference Range Interpretation Comme nts HEMOGLOBIN A1c (test code = 69644) 5.3 % Chencho Mercado AustinHEMOGLOBIN [id number] 00:00:00* Test Item Value Reference Range Interpretation Comme nts HEMOGLOBIN A1c (test code = 13798) 5.3 % Chencho Mercado AustinHEMOGLOBIN [id number] 00:00:00* Test Item Value Reference Range Interpretation Comme nts HEMOGLOBIN A1c (test code = 03157) 5.3 % Chencho Mercado AustinHEMOGLOBIN [id number] 00:00:00* Test Item Value Reference Range Interpretation Comme nts HEMOGLOBIN A1c (test code = 84770) 5.3 % Chencho Mercado AustinHEMOGLOBIN [id number] 00:00:00* Test Item Value Reference Range Interpretation Comme nts HEMOGLOBIN A1c (test code = 38043) 5.3 % Chencho Mercado AustinLIPID [id number] 06:18:11* Test Item Value Reference Range Interpretation Comme nts CHOLESTEROL (test code = 2210) 139 MG/DL <200 TRIGLYCERIDES (test code = 2232) 90 MG/DL <150 HDL CHOLESTEROL (test code = 2220) 34 MG/DL >39 L CALC LDL CHOL (test code = 2237) 87 MG/DL <100 NOTE: CALCULATED LDL IS BASED ON YENNIFER-MARLEY METHOD WHICHINCLUDES ADJUSTABLE TRIGLYCERIDE:VLDL CHOLESTEROL RATIO.THIS FACTOR VARIES BY MEASURED TRIGLYCERIDE AND NON-HDLCHOLESTEROL CONCENTRATIONS WITH INCREASED CALCULATED LDL SEENIN HIGHER TRIGLYCERIDE OR LOWER NON-HDL SPECIMENS. FOR MOREINFORMATION, SEE CLIENT ANNOUNCEMENT AT [email or web address] RISK RATIO LDL/HDL (test code = 2238) 2.56 RATIO <3.22 COMPREHENSIVE METABOLIC [id number] 06:18:11* Test Item Value Reference Range Interpretation Comme nts GLUCOSE (test code = 2217) 104 MG/DL 70-99 H BUN (test code = 2207) 8 MG/DL 6-20 CREATININE (test code = 2214) 0.74 MG/DL 0.60-1.30 eGFR (2020 CKD-EPI) (test code = 58786) 94 ML/MIN/1.73 >60 CALC BUN/CREAT (test code = 2235) 11 RATIO 6-28 SODIUM (test code = 2231) 145 MEQ/L 133-146 POTASSIUM (test code = 2228) 3.7 MEQ/L 3.5-5.4 CHLORIDE (test code = 2215) 107 MEQ/L 95-107 CARBON DIOXIDE (test code = 2206) 26 MEQ/L 19-31 CALCIUM (test code = 2209) 9.6 MG/DL 8.5-10.5 PROTEIN, TOTAL (test code = 2229) 5.9 G/DL 6.1-8.3 L ALBUMIN (test code = 2201) 4.3 G/DL 3.5-5.2 CALC GLOBULIN (test code = 2240) 1.6 G/DL 1.9-3.7 L CALC A/G RATIO (test code = 2234) 2.7 RATIO 1.0-2.6 H BILIRUBIN, TOTAL (test code = 2207) 0.4 MG/DL See_Comment [Automated me ssage] The system which generated this result transmitted reference range: <=1.2. The reference range was not used to interpret this result as normal/abnormal. ALKALINE PHOSPHATASE (test code = 2204) 117 U/L 40-136 AST (test code = 2218) 32 U/L 9-40 ALT (test code = 2219) 26 U/L 5-40 [facility] has impo rtant pathology staff changes effective 07/19/2022. New pathology staff will provide uninterrupted, excellent patient care and clinical consultation. See URL: [email or web address]. UNLESS OTHERWISE INDICATED, ALL TESTING PERFORMED AT [facility] [address] [place] [address] SENIOR PRINCIPAL: KAREN GUAMAN M.D. IA NUMBER [id number] [facility] [place]. [id number] LIPID [id number] 00:00:00* Test Item Value Reference Range Interpretation Comme nts CHOLESTEROL (test code = 2210) 139 MG/DL TRIGLYCERIDES (test code = 2232) 90 MG/DL HDL CHOLESTEROL (test code = 2220) 34 MG/DL CALC LDL CHOL (test code = 2237) 87 MG/DL RISK RATIO LDL/HDL (test cod e = 2238) 2.56 RATIO Chencho VillalpandoCOMPREHENSIVE METABOLIC [id number] 00:00:00* Test Item Value Reference Range Interpretation Comme nts GLUCOSE (test code = 2217) 104 MG/DL BUN (test code = 2208) 8 MG/DL CREATININE (test code = 2214) 0.74 MG/DL eGFR (2020 CKD-EPI) (test co de = 04067) 94 ML/MIN/1.73 CALC BUN/CREAT (test code = 2235) 11 RATIO SODIUM (test code = 2231) 145 MEQ/L POTASSIUM (test code = 2228) 3.7 MEQ/L CHLORIDE (test code = 2215) 107 MEQ/L CARBON DIOXIDE (test code = 2206) 26 MEQ/L CALCIUM (test code = 2209) 9.6 MG/DL PROTEIN, TOTAL (test code = 2229) 5.9 G/DL ALBUMIN (test code = 2201) 4.3 G/DL CALC GLOBULIN (test code = 2240) 1.6 G/DL CALC A/G RATIO (test code = 2234) 2.7 RATIO BILIRUBIN, TOTAL (test code = 2207) 0.4 MG/DL ALKALINE PHOSPHATASE (test code = 2204) 117 U/L AST (test code = 2218) 32 U/L ALT (test code = 2219) 26 U/L Chencho VillalpandoLIPID [id number] 00:00:00* Test Item Value Reference Range Interpretation Comme nts CHOLESTEROL (test code = 2210) 139 MG/DL TRIGLYCERIDES (test code = 2232) 90 MG/DL HDL CHOLESTEROL (test code = 2220) 34 MG/DL CALC LDL CHOL (test code = 2237) 87 MG/DL RISK RATIO LDL/HDL (test cod e = 2238) 2.56 RATIO Chencho VillalpandoCOMPREHENSIVE METABOLIC [id number] 00:00:00* Test Item Value Reference Range Interpretation Comme nts GLUCOSE (test code = 2217) 104 MG/DL BUN (test code = 2208) 8 MG/DL CREATININE (test code = 2214) 0.74 MG/DL eGFR (2020 CKD-EPI) (test co de = 01931) 94 ML/MIN/1.73 CALC BUN/CREAT (test code = 2235) 11 RATIO SODIUM (test code = 2231) 145 MEQ/L POTASSIUM (test code = 2228) 3.7 MEQ/L CHLORIDE (test code = 2215) 107 MEQ/L CARBON DIOXIDE (test code = 2206) 26 MEQ/L CALCIUM (test code = 2209) 9.6 MG/DL PROTEIN, TOTAL (test code = 2229) 5.9 G/DL ALBUMIN (test code = 2201) 4.3 G/DL CALC GLOBULIN (test code = 2240) 1.6 G/DL CALC A/G RATIO (test code = 2234) 2.7 RATIO BILIRUBIN, TOTAL (test code = 2207) 0.4 MG/DL ALKALINE PHOSPHATASE (test code = 2204) 117 U/L AST (test code = 2218) 32 U/L ALT (test code = 2219) 26 U/L Chencho VillalpandoLIPID [id number] 00:00:00* Test Item Value Reference Range Interpretation Comme nts CHOLESTEROL (test code = 2210) 139 MG/DL TRIGLYCERIDES (test code = 2232) 90 MG/DL HDL CHOLESTEROL (test code = 2220) 34 MG/DL CALC LDL CHOL (test code = 2237) 87 MG/DL RISK RATIO LDL/HDL (test cod e = 2238) 2.56 RATIO Chencho VillalpandoCOMPREHENSIVE METABOLIC [id number] 00:00:00* Test Item Value Reference Range Interpretation Comme nts GLUCOSE (test code = 2217) 104 MG/DL BUN (test code = 2208) 8 MG/DL CREATININE (test code = 2214) 0.74 MG/DL eGFR (2020 CKD-EPI) (test co de = 72108) 94 ML/MIN/1.73 CALC BUN/CREAT (test code = 2235) 11 RATIO SODIUM (test code = 2231) 145 MEQ/L POTASSIUM (test code = 2228) 3.7 MEQ/L CHLORIDE (test code = 2215) 107 MEQ/L CARBON DIOXIDE (test code = 2206) 26 MEQ/L CALCIUM (test code = 2209) 9.6 MG/DL PROTEIN, TOTAL (test code = 2229) 5.9 G/DL ALBUMIN (test code = 2201) 4.3 G/DL CALC GLOBULIN (test code = 2240) 1.6 G/DL CALC A/G RATIO (test code = 2234) 2.7 RATIO BILIRUBIN, TOTAL (test code = 2207) 0.4 MG/DL ALKALINE PHOSPHATASE (test code = 2204) 117 U/L AST (test code = 2218) 32 U/L ALT (test code = 2219) 26 U/L Chencho Mercado AustinLIPID [id number] 00:00:00* Test Item Value Reference Range Interpretation Comme nts CHOLESTEROL (test code = 2210) 139 MG/DL TRIGLYCERIDES (test code = 2232) 90 MG/DL HDL CHOLESTEROL (test code = 2220) 34 MG/DL CALC LDL CHOL (test code = 2237) 87 MG/DL RISK RATIO LDL/HDL (test cod e = 2238) 2.56 RATIO Chencho Mercado AustinCOMPREHENSIVE METABOLIC [id number] 00:00:00* Test Item Value Reference Range Interpretation Comme nts GLUCOSE (test code = 2217) 104 MG/DL BUN (test code = 2208) 8 MG/DL CREATININE (test code = 2214) 0.74 MG/DL eGFR (2020 CKD-EPI) (test co de = 71611) 94 ML/MIN/1.73 CALC BUN/CREAT (test code = 2235) 11 RATIO SODIUM (test code = 2231) 145 MEQ/L POTASSIUM (test code = 2228) 3.7 MEQ/L CHLORIDE (test code = 2215) 107 MEQ/L CARBON DIOXIDE (test code = 2206) 26 MEQ/L CALCIUM (test code = 2209) 9.6 MG/DL PROTEIN, TOTAL (test code = 2229) 5.9 G/DL ALBUMIN (test code = 2201) 4.3 G/DL CALC GLOBULIN (test code = 2240) 1.6 G/DL CALC A/G RATIO (test code = 2234) 2.7 RATIO BILIRUBIN, TOTAL (test code = 2207) 0.4 MG/DL ALKALINE PHOSPHATASE (test code = 2204) 117 U/L AST (test code = 2218) 32 U/L ALT (test code = 2219) 26 U/L Chencho Mercado AustinLIPID [id number] 00:00:00* Test Item Value Reference Range Interpretation Comme nts CHOLESTEROL (test code = 2210) 139 MG/DL TRIGLYCERIDES (test code = 2232) 90 MG/DL HDL CHOLESTEROL (test code = 2220) 34 MG/DL CALC LDL CHOL (test code = 2237) 87 MG/DL RISK RATIO LDL/HDL (test cod e = 2238) 2.56 RATIO Chencho VillalpandoCOMPREHENSIVE METABOLIC [id number] 00:00:00* Test Item Value Reference Range Interpretation Comme nts GLUCOSE (test code = 2217) 104 MG/DL BUN (test code = 2208) 8 MG/DL CREATININE (test code = 2214) 0.74 MG/DL eGFR (2020 CKD-EPI) (test co de = 70890) 94 ML/MIN/1.73 CALC BUN/CREAT (test code = 2235) 11 RATIO SODIUM (test code = 2231) 145 MEQ/L POTASSIUM (test code = 2228) 3.7 MEQ/L CHLORIDE (test code = 2215) 107 MEQ/L CARBON DIOXIDE (test code = 2206) 26 MEQ/L CALCIUM (test code = 2209) 9.6 MG/DL PROTEIN, TOTAL (test code = 2229) 5.9 G/DL ALBUMIN (test code = 2201) 4.3 G/DL CALC GLOBULIN (test code = 2240) 1.6 G/DL CALC A/G RATIO (test code = 2234) 2.7 RATIO BILIRUBIN, TOTAL (test code = 220) 0.4 MG/DL ALKALINE PHOSPHATASE (test code = 2203) 117 U/L AST (test code = 2218) 32 U/L ALT (test code = 2219) 26 U/L Chencho VillalpandoCOMPREHENSIVE METABOLIC [id number] 04:29:27* Test Item Value Reference Range Interpretation Comme nts GLUCOSE (test code = 2216) 82 MG/DL 70-99 BUN (test code = 2207) 12 MG/DL 6-20 CREATININE (test code = 221) 0.97 MG/DL 0.60-1.30 eGFR (2020 CKD-EPI) (test code = 76339) 68 ML/MIN/1.73 >60 CALC BUN/CREAT (test code = 2235) 12 RATIO 6-28 SODIUM (test code = 2230) 145 MEQ/L 133-146 POTASSIUM (test code = 2228) 3.9 MEQ/L 3.5-5.4 CHLORIDE (test code = 2215) 105 MEQ/L 95-107 CARBON DIOXIDE (test code = 2206) 27 MEQ/L 19-31 CALCIUM (test code = 2209) 9.6 MG/DL 8.5-10.5 PROTEIN, TOTAL (test code = 2229) 6.1 G/DL 6.1-8.3 ALBUMIN (test code = 2201) 4.3 G/DL 3.5-5.2 CALC GLOBULIN (test code = 2240) 1.8 G/DL 1.9-3.7 L CALC A/G RATIO (test code = 2234) 2.4 RATIO 1.0-2.6 BILIRUBIN, TOTAL (test code = 220) 0.4 MG/DL See_Comment [Automated me ssage] The system which generated this result transmitted reference range: <=1.2. The reference range was not used to interpret this result as normal/abnormal. ALKALINE PHOSPHATASE (test code = 4) 112 U/L 40-136 AST (test code = 2218) 21 U/L 9-40 ALT (test code = 221) 22 U/L 5-40 LIPID [id number] 04:29:27* Test Item Value Reference Range Interpretation Comme nts CHOLESTEROL (test code = 2210) 182 MG/DL <200 TRIGLYCERIDES (test code = 2232) 152 MG/DL <150 H HDL CHOLESTEROL (test code = 2220) 41 MG/DL >39 CALC LDL CHOL (test code = 2237) 114 MG/DL <100 H NOTE: CALCULATED LDL IS BASED ON YENNIFER-MARLEY METHOD WHICHINCLUDES ADJUSTABLE TRIGLYCERIDE:VLDL CHOLESTEROL RATIO.THIS FACTOR VARIES BY MEASURED TRIGLYCERIDE AND NON-HDLCHOLESTEROL CONCENTRATIONS WITH INCREASED CALCULATED LDL SEENIN HIGHER TRIGLYCERIDE OR LOWER NON-HDL SPECIMENS. FOR MOREINFORMATION, SEE CLIENT ANNOUNCEMENT AT [email or web address] RISK RATIO LDL/HDL (test code = 2238) 2.78 RATIO <3.22 HEMOGLOBIN [id number] 04:10:33* Test Item Value Reference Range Interpretation Comme nts HEMOGLOBIN A1c (test code = 11002) 5.5 % 4.2-5.6 UNLESS OTHERWISE INDICATED, ALL TESTING [facility]MED [facility] [address] [place] [address] SENIOR PRINCIPAL: ARCADIO ROBLES M.D. CLIA NUMBER [id number] [facility] [place]. [id number] CBC W/AUTO DIFF WITH [id number] 03:19:47* Test Item Value Reference Range Interpretation Comme nts WBC (test code = 1001) 8.2 K/UL 3.5-11.0 RBC (test code = 1002) 5.04 M/UL 3.80-5.40 HEMOGLOBIN (test code = 1003) 13.5 G/DL 11.5-15.5 HEMATOCRIT (test code = 1004) 40.6 % 34.0-45.0 MCV (test code = 1005) 80.6 fL 80.0-99.0 MCH (test code = 1006) 26.8 PG 25.0-33.0 MCHC (test code = 1007) 33.3 G/DL 31.0-36.0 RDW (test code = 1038) 12.9 % 11.5-15.0 NEUTROPHILS (test code = 1008) 70.3 % LYMPHOCYTES (test code = 1010) 21.5 % MONOCYTES (test code = 1011) 4.9 % EOSINOPHILS (test code = 1012) 2.6 % BASOPHILS (test code = 1013) 0.6 % IMMATURE GRANULOCYTES (test code = 1036) 0.1 % NUCLEATED RBCS (test code = 1065) 0.0 /100 WBC'S See_Comment [Automated messa ge] The system which generated this result transmitted reference range: 0.0. The reference range was not used to interpret this result as normal/abnormal. PLATELET COUNT (test code = 1015) 277 K/UL 130-400 ABSOLUTE NEUTROPHILS (test code = 1066) 5.73 K/UL 1.50-7.50 ABSOLUTE LYMPHOCYTES (test code = 1067) 1.75 K/UL 1.00-4.00 ABSOLUTE MONOCYTES (test code = 1068) 0.40 K/UL 0.20-1.00 ABSOLUTE EOSINOPHILS (test code = 1040) 0.21 K/UL 0.00-0.50 ABSOLUTE BASOPHILS (test code = 1069) 0.05 K/UL 0.00-0.20 ABS IMMATURE GRANULOCYTES (test code = 1020) 0.01 K/UL 0.00-0.10 ABS NUCLEATED RBCS (test code = 76057) 0.00 K/UL 0.00-0.11 CBC W/AUTO DIFF WITH PLATELETS [ADDED]2021-12-17 00:00:00* Test Item Value Reference Range Interpretation Comme nts WBC (test code = 1001) 8.2 K/UL [...] = 1013) 0.6 % IMMATURE GRANULOCYTES (test code = 1036) 0.1 % NUCLEATED RBCS (test code = 1065) 0.0 /100WBC'S PLATELET COUNT (test code = 1015) 277 K/UL ABSOLUTE NEUTROPHILS (test c ode = 1066) 5.73 K/UL ABSOLUTE LYMPHOCYTES (test c ode = 1067) 1.75 K/UL ABSOLUTE MONOCYTES (test cod e = 1068) 0.40 K/UL ABSOLUTE EOSINOPHILS (test c ode = 1040) 0.21 K/UL ABSOLUTE BASOPHILS (test cod e = 1069) 0.05 K/UL ABS IMMATURE GRANULOCYTES (t est code = 1020) 0.01 K/UL ABS NUCLEATED RBCS (test cod e = 21481) 0.00 K/UL COMPREHENSIVE METABOLIC PANEL [ADDED]2021-12-17 00:00:00* Test Item Value Reference Range Interpretation Comme nts GLUCOSE (test code = 2217) 82 MG/DL BUN (test code = 2208) 12 MG/DL CREATININE (test code = 2214) 0.97 MG/DL eGFR (2020 CKD-EPI) (test co de = 59318) 68 ML/MIN/1.73 CALC BUN/CREAT (test code = 2235) 12 RATIO SODIUM (test code = 2231) 145 MEQ/L POTASSIUM (test code = 2228) 3.9 MEQ/L CHLORIDE (test code = 2215) 105 MEQ/L CARBON DIOXIDE (test code = 2206) 27 MEQ/L CALCIUM (test code = 2209) 9.6 MG/DL PROTEIN, TOTAL (test code = 2229) 6.1 G/DL ALBUMIN (test code = 2201) 4.3 G/DL CALC GLOBULIN (test code = 2240) 1.8 G/DL CALC A/G RATIO (test code = 2234) 2.4 RATIO BILIRUBIN, TOTAL (test code = 2207) 0.4 MG/DL ALKALINE PHOSPHATASE (test code = 2204) 112 U/L AST (test code = 2218) 21 U/L ALT (test code = 2219) 22 U/L LIPID PANEL [ADDED]2021-12-17 00:00:00* Test Item Value Reference Range Interpretation Comme nts CHOLESTEROL (test code = 2210) 182 MG/DL TRIGLYCERIDES (test code = 2232) 152 MG/DL HDL CHOLESTEROL (test code = 2220) 41 MG/DL CALC LDL CHOL (test code = 2237) 114 MG/DL RISK RATIO LDL/HDL (test cod e = 2238) 2.78 RATIO HEMOGLOBIN A1c [ADDED]2021-12-17 00:00:00* Test Item Value Reference Range Interpretation Comme nts HEMOGLOBIN A1c (test code = 65875) 5.5 % CBC W/AUTO DIFF WITH PLATELETS [ADDED]2021-12-17 00:00:00* Test Item Value Reference Range Interpretation Comme nts WBC (test code = 1001) 8.2 K/UL [...] = 1013) 0.6 % IMMATURE GRANULOCYTES (test code = 1036) 0.1 % NUCLEATED RBCS (test code = 1065) 0.0 /100WBC'S PLATELET COUNT (test code = 1015) 277 K/UL ABSOLUTE NEUTROPHILS (test c ode = 1066) 5.73 K/UL ABSOLUTE LYMPHOCYTES (test c ode = 1067) 1.75 K/UL ABSOLUTE MONOCYTES (test cod e = 1068) 0.40 K/UL ABSOLUTE EOSINOPHILS (test c ode = 1040) 0.21 K/UL ABSOLUTE BASOPHILS (test cod e = 1069) 0.05 K/UL ABS IMMATURE GRANULOCYTES (t est code = 1020) 0.01 K/UL ABS NUCLEATED RBCS (test cod e = 27004) 0.00 K/UL COMPREHENSIVE METABOLIC PANEL [ADDED]2021-12-17 00:00:00* Test Item Value Reference Range Interpretation Comme nts GLUCOSE (test code = 2217) 82 MG/DL BUN (test code = 2208) 12 MG/DL CREATININE (test code = 2214) 0.97 MG/DL eGFR (2020 CKD-EPI) (test co de = 81962) 68 ML/MIN/1.73 CALC BUN/CREAT (test code = 2235) 12 RATIO SODIUM (test code = 2231) 145 MEQ/L POTASSIUM (test code = 2228) 3.9 MEQ/L CHLORIDE (test code = 2215) 105 MEQ/L CARBON DIOXIDE (test code = 2206) 27 MEQ/L CALCIUM (test code = 2209) 9.6 MG/DL PROTEIN, TOTAL (test code = 2229) 6.1 G/DL ALBUMIN (test code = 2201) 4.3 G/DL CALC GLOBULIN (test code = 2240) 1.8 G/DL CALC A/G RATIO (test code = 2234) 2.4 RATIO BILIRUBIN, TOTAL (test code = 2207) 0.4 MG/DL ALKALINE PHOSPHATASE (test code = 2204) 112 U/L AST (test code = 2218) 21 U/L ALT (test code = 2219) 22 U/L LIPID PANEL [ADDED]2021-12-17 00:00:00* Test Item Value Reference Range Interpretation Comme nts CHOLESTEROL (test code = 2210) 182 MG/DL TRIGLYCERIDES (test code = 2232) 152 MG/DL HDL CHOLESTEROL (test code = 2220) 41 MG/DL CALC LDL CHOL (test code = 2237) 114 MG/DL RISK RATIO LDL/HDL (test cod e = 2238) 2.78 RATIO HEMOGLOBIN A1c [ADDED]2021-12-17 00:00:00* Test Item Value Reference Range Interpretation Comme [facility] HEMOGLOBIN A1c (test code = 41850) 5.5 % Chencho F AustinHEMOGLOBIN A1c [ADDED]2021-12-17 00:00:00* Test Item Value Reference Range Interpretation Comme nts HEMOGLOBIN A1c (test code = 43595) 5.5 % CBC W/AUTO DIFF WITH PLATELETS [ADDED]2021-12-17 00:00:00* Test Item Value Reference Range Interpretation Comme nts WBC (test code = 1001) 8.2 K/UL [...] = 1013) 0.6 % IMMATURE GRANULOCYTES (test code = 1036) 0.1 % NUCLEATED RBCS (test code = 1065) 0.0 /100WBC'S PLATELET COUNT (test code = 1015) 277 K/UL ABSOLUTE NEUTROPHILS (test c ode = 1066) 5.73 K/UL ABSOLUTE LYMPHOCYTES (test c ode = 1067) 1.75 K/UL ABSOLUTE MONOCYTES (test cod e = 1068) 0.40 K/UL ABSOLUTE EOSINOPHILS (test c ode = 1040) 0.21 K/UL ABSOLUTE BASOPHILS (test cod e = 1069) 0.05 K/UL ABS IMMATURE GRANULOCYTES (t est code = 1020) 0.01 K/UL ABS NUCLEATED RBCS (test cod e = 21066) 0.00 K/UL COMPREHENSIVE METABOLIC PANEL [ADDED]2021-12-17 00:00:00* Test Item Value Reference Range Interpretation Comme nts GLUCOSE (test code = 2217) 82 MG/DL BUN (test code = 2208) 12 MG/DL CREATININE (test code = 2214) 0.97 MG/DL eGFR (2020 CKD-EPI) (test co de = 68463) 68 ML/MIN/1.73 CALC BUN/CREAT (test code = 2235) 12 RATIO SODIUM (test code = 2231) 145 MEQ/L POTASSIUM (test code = 2228) 3.9 MEQ/L CHLORIDE (test code = 2215) 105 MEQ/L CARBON DIOXIDE (test code = 2206) 27 MEQ/L CALCIUM (test code = 2209) 9.6 MG/DL PROTEIN, TOTAL (test code = 2229) 6.1 G/DL ALBUMIN (test code = 2201) 4.3 G/DL CALC GLOBULIN (test code = 2240) 1.8 G/DL CALC A/G RATIO (test code = 2234) 2.4 RATIO BILIRUBIN, TOTAL (test code = 2207) 0.4 MG/DL ALKALINE PHOSPHATASE (test code = 2204) 112 U/L AST (test code = 2218) 21 U/L ALT (test code = 2219) 22 U/L LIPID PANEL [ADDED]2021-12-17 00:00:00* Test Item Value Reference Range Interpretation Comme nts CHOLESTEROL (test code = 2210) 182 MG/DL TRIGLYCERIDES (test code = 2232) 152 MG/DL HDL CHOLESTEROL (test code = 2220) 41 MG/DL CALC LDL CHOL (test code = 2237) 114 MG/DL RISK RATIO LDL/HDL (test cod e = 2238) 2.78 RATIO HEMOGLOBIN A1c [ADDED]2021-12-17 00:00:00* Test Item Value Reference Range Interpretation Comme nts HEMOGLOBIN A1c (test code = 17252) 5.5 % CBC W/AUTO DIFF WITH PLATELETS [ADDED]2021-12-17 00:00:00* Test Item Value Reference Range Interpretation Comme nts WBC (test code = 1001) 8.2 K/UL [...] = 1013) 0.6 % IMMATURE GRANULOCYTES (test code = 1036) 0.1 % NUCLEATED RBCS (test code = 1065) 0.0 /100WBC'S PLATELET COUNT (test code = 1015) 277 K/UL ABSOLUTE NEUTROPHILS (test c ode = 1066) 5.73 K/UL ABSOLUTE LYMPHOCYTES (test c ode = 1067) 1.75 K/UL ABSOLUTE MONOCYTES (test cod e = 1068) 0.40 K/UL ABSOLUTE EOSINOPHILS (test c ode = 1040) 0.21 K/UL ABSOLUTE BASOPHILS (test cod e = 1069) 0.05 K/UL ABS IMMATURE GRANULOCYTES (t est code = 1020) 0.01 K/UL ABS NUCLEATED RBCS (test cod e = 73375) 0.00 K/UL Chencho VillalpandoCBC W/AUTO DIFF WITH PLATELETS [ADDED]2021-12-17 00:00:00* Test Item Value Reference Range Interpretation Comme nts WBC (test code = 1001) 8.2 K/UL [...] = 1013) 0.6 % IMMATURE GRANULOCYTES (test code = 1036) 0.1 % NUCLEATED RBCS (test code = 1065) 0.0 /100WBC'S PLATELET COUNT (test code = 1015) 277 K/UL ABSOLUTE NEUTROPHILS (test c ode = 1066) 5.73 K/UL ABSOLUTE LYMPHOCYTES (test c ode = 1067) 1.75 K/UL ABSOLUTE MONOCYTES (test cod e = 1068) 0.40 K/UL ABSOLUTE EOSINOPHILS (test c ode = 1040) 0.21 K/UL ABSOLUTE BASOPHILS (test cod e = 1069) 0.05 K/UL ABS IMMATURE GRANULOCYTES (t est code = 1020) 0.01 K/UL ABS NUCLEATED RBCS (test cod e = 26983) 0.00 K/UL COMPREHENSIVE METABOLIC PANEL [ADDED]2021-12-17 00:00:00* Test Item Value Reference Range Interpretation Comme nts GLUCOSE (test code = 2217) 82 MG/DL BUN (test code = 2208) 12 MG/DL CREATININE (test code = 2214) 0.97 MG/DL eGFR (2020 CKD-EPI) (test co de = 51536) 68 ML/MIN/1.73 CALC BUN/CREAT (test code = 2235) 12 RATIO SODIUM (test code = 2231) 145 MEQ/L POTASSIUM (test code = 2228) 3.9 MEQ/L CHLORIDE (test code = 2215) 105 MEQ/L CARBON DIOXIDE (test code = 2206) 27 MEQ/L CALCIUM (test code = 2209) 9.6 MG/DL PROTEIN, TOTAL (test code = 2229) 6.1 G/DL ALBUMIN (test code = 2201) 4.3 G/DL CALC GLOBULIN (test code = 2240) 1.8 G/DL CALC A/G RATIO (test code = 2234) 2.4 RATIO BILIRUBIN, TOTAL (test code = 2207) 0.4 MG/DL ALKALINE PHOSPHATASE (test code = 2204) 112 U/L AST (test code = 2218) 21 U/L ALT (test code = 2219) 22 U/L LIPID PANEL [ADDED]2021-12-17 00:00:00* Test Item Value Reference Range Interpretation Comme nts CHOLESTEROL (test code = 2210) 182 MG/DL TRIGLYCERIDES (test code = 2232) 152 MG/DL HDL CHOLESTEROL (test code = 2220) 41 MG/DL CALC LDL CHOL (test code = 2237) 114 MG/DL RISK RATIO LDL/HDL (test cod e = 2238) 2.78 RATIO COMPREHENSIVE METABOLIC PANEL [ADDED]2021-12-17 00:00:00* Test Item Value Reference Range Interpretation Comme nts GLUCOSE (test code = 2217) 82 MG/DL BUN (test code = 2208) 12 MG/DL CREATININE (test code = 2214) 0.97 MG/DL eGFR (2020 CKD-EPI) (test co de = 08388) 68 ML/MIN/1.73 CALC BUN/CREAT (test code = 2235) 12 RATIO SODIUM (test code = 2231) 145 MEQ/L POTASSIUM (test code = 2228) 3.9 MEQ/L CHLORIDE (test code = 2215) 105 MEQ/L CARBON DIOXIDE (test code = 2206) 27 MEQ/L CALCIUM (test code = 2209) 9.6 MG/DL PROTEIN, TOTAL (test code = 2229) 6.1 G/DL ALBUMIN (test code = 2201) 4.3 G/DL CALC GLOBULIN (test code = 2240) 1.8 G/DL CALC A/G RATIO (test code = 2234) 2.4 RATIO BILIRUBIN, TOTAL (test code = 2207) 0.4 MG/DL ALKALINE PHOSPHATASE (test code = 2204) 112 U/L AST (test code = 2218) 21 U/L ALT (test code = 2219) 22 U/L Chencho Mercado AustinHEMOGLOBIN A1c [ADDED]2021-12-17 00:00:00* Test Item Value Reference Range Interpretation Comme nts HEMOGLOBIN A1c (test code = 72252) 5.5 % LIPID PANEL [ADDED]2021-12-17 00:00:00* Test Item Value Reference Range Interpretation Comme nts CHOLESTEROL (test code = 2210) 182 MG/DL TRIGLYCERIDES (test code = 2232) 152 MG/DL HDL CHOLESTEROL (test code = 2220) 41 MG/DL CALC LDL CHOL (test code = 2237) 114 MG/DL RISK RATIO LDL/HDL (test cod e = 2238) 2.78 RATIO Chencho VillalpandoHEMOGLOBIN A1c [ADDED]2021-12-17 00:00:00* Test Item Value Reference Range Interpretation Comme nts HEMOGLOBIN A1c (test code = 14448) 5.5 % Chencho VillalpandoCBC W/AUTO DIFF WITH PLATELETS [ADDED]2021-12-17 00:00:00* Test Item Value Reference Range Interpretation Comme nts WBC (test code = 1001) 8.2 K/UL [...] = 1013) 0.6 % IMMATURE GRANULOCYTES (test code = 1036) 0.1 % NUCLEATED RBCS (test code = 1065) 0.0 /100WBC'S PLATELET COUNT (test code = 1015) 277 K/UL ABSOLUTE NEUTROPHILS (test c ode = 1066) 5.73 K/UL ABSOLUTE LYMPHOCYTES (test c ode = 1067) 1.75 K/UL ABSOLUTE MONOCYTES (test cod e = 1068) 0.40 K/UL ABSOLUTE EOSINOPHILS (test c ode = 1040) 0.21 K/UL ABSOLUTE BASOPHILS (test cod e = 1069) 0.05 K/UL ABS IMMATURE GRANULOCYTES (t est code = 1020) 0.01 K/UL ABS NUCLEATED RBCS (test cod e = 77346) 0.00 K/UL Chencho Jess KwasiCOMPREHENSIVE METABOLIC PANEL [ADDED]2021-12-17 00:00:00* Test Item Value Reference Range Interpretation Comme nts GLUCOSE (test code = 2217) 82 MG/DL BUN (test code = 2208) 12 MG/DL CREATININE (test code = 2214) 0.97 MG/DL eGFR (2020 CKD-EPI) (test co de = 40435) 68 ML/MIN/1.73 CALC BUN/CREAT (test code = 2235) 12 RATIO SODIUM (test code = 2231) 145 MEQ/L POTASSIUM (test code = 2228) 3.9 MEQ/L CHLORIDE (test code = 2215) 105 MEQ/L CARBON DIOXIDE (test code = 2206) 27 MEQ/L CALCIUM (test code = 2209) 9.6 MG/DL PROTEIN, TOTAL (test code = 2229) 6.1 G/DL ALBUMIN (test code = 2201) 4.3 G/DL CALC GLOBULIN (test code = 2240) 1.8 G/DL CALC A/G RATIO (test code = 2234) 2.4 RATIO BILIRUBIN, TOTAL (test code = 2207) 0.4 MG/DL ALKALINE PHOSPHATASE (test code = 2204) 112 U/L AST (test code = 2218) 21 U/L ALT (test code = 2219) 22 U/L Chencho Mercado KwasiLIPID PANEL [ADDED]2021-12-17 00:00:00* Test Item Value Reference Range Interpretation Comme nts CHOLESTEROL (test code = 2210) 182 MG/DL TRIGLYCERIDES (test code = 2232) 152 MG/DL HDL CHOLESTEROL (test code = 2220) 41 MG/DL CALC LDL CHOL (test code = 2237) 114 MG/DL RISK RATIO LDL/HDL (test cod e = 2238) 2.78 RATIO Chencho Jess KwasiHEMOGLOBIN A1c [ADDED]2021-12-17 00:00:00* Test Item Value Reference Range Interpretation Comme nts HEMOGLOBIN A1c (test code = 70504) 5.5 % Chencho VillalpandoCBC W/AUTO DIFF WITH PLATELETS [ADDED]2021-12-17 00:00:00* Test Item Value Reference Range Interpretation Comme nts WBC (test code = 1001) 8.2 K/UL [...] = 1013) 0.6 % IMMATURE GRANULOCYTES (test code = 1036) 0.1 % NUCLEATED RBCS (test code = 1065) 0.0 /100WBC'S PLATELET COUNT (test code = 1015) 277 K/UL ABSOLUTE NEUTROPHILS (test c ode = 1066) 5.73 K/UL ABSOLUTE LYMPHOCYTES (test c ode = 1067) 1.75 K/UL ABSOLUTE MONOCYTES (test cod e = 1068) 0.40 K/UL ABSOLUTE EOSINOPHILS (test c ode = 1040) 0.21 K/UL ABSOLUTE BASOPHILS (test cod e = 1069) 0.05 K/UL ABS IMMATURE GRANULOCYTES (t est code = 1020) 0.01 K/UL ABS NUCLEATED RBCS (test cod e = 47359) 0.00 K/UL Chencho VillalpandoCOMPREHENSIVE METABOLIC PANEL [ADDED]2021-12-17 00:00:00* Test Item Value Reference Range Interpretation Comme nts GLUCOSE (test code = 2217) 82 MG/DL BUN (test code = 2208) 12 MG/DL CREATININE (test code = 2214) 0.97 MG/DL eGFR (2020 CKD-EPI) (test co de = 26577) 68 ML/MIN/1.73 CALC BUN/CREAT (test code = 2235) 12 RATIO SODIUM (test code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
[2025-03-04] MEDS ORDERED: ACETAMINOPHEN 500 MG TAB ONE (00:27)
[2025-03-04] MEDS ORDERED: IBUPROFEN 400 MG TAB ONE (00:28)
[2025-03-04] MEDS ORDERED: IBUPROFEN 200 MG TAB PO ONE (00:32)
--- NOTE | 2025-03-04 02:49 | ER ---
Nurse's Notes [facility] Name: Wen Borges Age: 59 yrs Sex: Female : 1965 Arrival Date: 03/04/2025 Time: 00:08 Bed 7 Private MD: Diagnosis: Pain in right knee Presentation: 03/04 00:24 Chief complaint: Patient states: S/P FALL ON RIGHT KNEE C/O PAIN....THIS OCCURRED 1 HR br2 SNUBBER. Coronavirus screen: Client denies travel out of the [place] in the last 14 days. Ebola Screen: Patient denies exposure to infectious person. Initial Sepsis Screen: Does the patient meet any 2 criteria? No. Patient's initial sepsis screen is negative. Does the patient have a suspected source of infection? No. Patient's initial sepsis screen is negative. Risk Assessment: Do you want to hurt yourself or someone else? Patient reports no desire to harm self or others. Onset of symptoms was March 03, 2025 at 23:30. 00:24 Method Of Arrival: Ambulatory br2 00:24 Acuity: MORAIMA 3 br2 Triage Assessment: 00:26 General: Appears uncomfortable, Behavior is calm, cooperative. Pain: Complains of pain br2 in right knee Pain currently is 8 out of 10 on a pain scale. Historical: - Allergies: 00:26 Aspirin; br2 00:26 HONEY; br2 00:26 Lisinopril; br2 - PMHx: 00:26 Hypertensive disorder; br2 - PSHx: 00:26 Cholecystectomy; hysterectomy; br2 - Immunization history:: Adult Immunizations up to date. - Infectious Disease History:: Denies. - Social history:: Smoking status: Patient/guardian denies using tobacco, Patient uses alcohol, occasionally. Patient/guardian denies using street drugs. Screenin:20 [facility] ED Fall Risk Assessment (Adult) History of falling in the last 3 months, nh2 including since admission Yes- single mechanical fall (1 pt) Confusion or Disorientation No (0 pts) Intoxicated or Sedated No (0 pts) Impaired Gait No (0 pts) Mobility Assist Device Used No (0 pt) Altered Elimination No (0 pt) Score/Fall Risk Level 0 - 2 = Low Risk Oriented to surroundings, Maintained a safe environment, Educated pt \T\ family on fall prevention, incl call for assistance when getting out of bed, Assessed \T\ reinforced patient's understanding of fall precautions. Abuse screen: Denies threats or abuse. Denies injuries from another. Nutritional screening: No deficits noted. Tuberculosis screening: No symptoms or risk factors identified. Assessment: 00:20 General: Appears uncomfortable, Behavior is calm, cooperative, appropriate for age. nh2 Pain: Complains of pain in right knee Pain does not radiate. Pain currently is 8 out of 10 on a pain scale. Quality of pain is described as aching, Pain began 1 hour ago. Neuro: Level of Consciousness is awake, alert, obeys commands, Oriented to person, place, time, situation, Neuropsychology Medical Consultant are equal bilaterally. Cardiovascular: Denies chest pain, Patient's skin is warm and dry. Respiratory: Respiratory effort is even, unlabored, Breath sounds are clear bilaterally. GI: Abdomen is round obese, Patient currently denies nausea, vomiting. : No signs and/or symptoms were reported regarding the genitourinary system. Denies burning with urination. EENT: No signs and/or symptoms were reported regarding the EENT system. Derm: Bruising that is bright red, on right knee swelling to the R knee. Musculoskeletal: Range of motion: limited in right leg and right knee. Injury Description: tripped over a cat one hour SNUBBER and fell on R knee. 01:29 Reassessment: Patient appears in no apparent distress at this time. Patient and/or bm8 family updated on plan of care and expected duration. Pain level reassessed. Patient is alert, oriented x 3, equal unlabored respirations, skin warm/dry/pink. Patient states feeling better. Patient states symptoms have improved. Pain: Complains of pain in right knee Pain currently is 5 out of 10 on a pain scale. 02:50 Reassessment: Patient appears in no apparent distress at this time. Patient and/or bm8 family updated on plan of care and expected duration. Pain level reassessed. Patient is alert, oriented x 3, equal unlabored respirations, skin warm/dry/pink. Patient states feeling better. Patient states symptoms have improved. Vital Signs: 00:24 BP 170 / 101; Pulse 73; Resp 18; Temp 98.1; Pulse Ox 99% ; Weight 108.86 kg; Height 5 br2 ft. 6 in. ; Pain 8/10; 01:29 BP 135 / 59; Pulse 63; Resp 17; Temp 98.1; Pulse Ox 99% ; Pain 5/10; bm8 02:22 BP 142 / 68; Pulse 68; Resp 18; Pulse Ox 99% on R/A; nh2 02:50 BP 128 / 65; Pulse 63; Resp 17; Temp 98.1; Pulse Ox 99% ; Pain 3/10; bm8 00:24 Body Mass Index 38.74 (108.86 kg, 167.64 cm) br2 00:24 Pain Scale: Adult br2 01:29 Pain Scale: Adult bm8 02:50 Pain Scale: Adult bm8 De Coma Score: 01:29 Eye Response: spontaneous(4). Motor Response: obeys commands(6). Verbal Response: bm8 oriented(5). Total: 15. 02:50 Eye Response: spontaneous(4). Motor Response: obeys commands(6). Verbal Response: bm8 oriented(5). Total: 15. ED Course: 00:11 Patient arrived in ED. mr 00:20 Patient has correct armband on for positive identification. Bed in low position. Call nh2 light in reach. Side rails up X2. Provided Education on: using call light for assistance. 00:23 Adam Roach DO is Attending Physician. tt7 00:25 Triage completed. br2 00:26 Zhao Cox Jr, RN is Primary Nurse. nh2 00:26 Arm band placed on right wrist. br2 00:45 XRAY Knee RIGHT 3 view In Process Unspecified. EDMS 01:29 Door closed. Noise minimized. Warm blanket given. Verbal reassurance given. Head of bed bm8 elevated. 02:50 No provider procedures requiring assistance completed. Patient did not have IV access bm8 during this emergency room visit. Administered Medications: 00:34 Drug: Acetaminophen PO 1000 mg PO once Route: PO; nh2 01:29 Follow up: Response: No adverse reaction bm8 00:34 Drug: Ibuprofen PO 600 mg PO once Route: PO; nh2 01:29 Follow up: Response: No adverse reaction bm8 Medication: 00:20 VIS not applicable for this client. nh2 Outcome: 02:49 Discharge ordered by MD. tt7 02:51 Discharged to home ambulatory, with family, bm8 02:51 Condition: stable 02:51 Discharge instructions given to patient, family, Instructed on discharge instructions, follow up and referral plans. no drinking with medication, no driving heavy equipment, medication usage, safety practices, Demonstrated understanding of instructions, follow-up care, medications, 02:52 Patient left the ED. bm8 Signatures: Dispatcher [employer] EDPR Dorota Verma, Reg Reg mr RitchieGarland RN RN bm8 Corazon Gannon RN RN br2 Zhao Cox Jr RN RN nh2 Adam Roach, DO tt7
--- NOTE | 2025-03-04 02:49 | EDPHYS ---
Physician Documentation [facility] Name: Wen Borges Age: 59 yrs Sex: Female : 1965 Arrival Date: 03/04/2025 Time: 00:08 Bed 7 Private MD: ED Physician Adam Roach HPI: 03/04 00:34 This 59 yrs old Female presents to ER via Ambulatory with complaints of Knee Injury. tt7 00:34 Patient reports that she tripped over her cat and fell forward landing onto her right tt7 knee, she denies other injury, was able to ambulate after the injury with some pain on weightbearing, past medical history includes hypertension. Historical: - Allergies: 00:26 Aspirin; br2 00:26 HONEY; br2 00:26 Lisinopril; br2 - PMHx: 00:26 Hypertensive disorder; br2 - PSHx: 00:26 Cholecystectomy; hysterectomy; br2 - Immunization history:: Adult Immunizations up to date. - Infectious Disease History:: Denies. - Social history:: Smoking status: Patient/guardian denies using tobacco, Patient uses alcohol, occasionally. Patient/guardian denies using street drugs. ROS: 00:36 Constitutional: negative for fever. Cardiovascular: negative for chest pain. tt7 Respiratory: negative for shortness of breath. Abdomen/GI: negative for abdominal pain, nausea, vomiting, diarrhea. MS/Extremity: Positive for injury, negative for deformity Skin: negative for rash. Neuro: negative for focal weakness. Exam: 00:36 Constitutional: vital signs reviewed, well appearing. Head/Face: normocephalic, tt7 atraumatic. Eyes: no conjunctival injection, anicteric sclerae. ENT: mucus membranes moist. Neck: trachea midline, no JVD, no meningismus. Cardiovascular: regular rate and rhythm, no lower extremity edema. Respiratory: normal respiratory effort, no accessory muscle use. Abdomen/GI: Nondistended Back: normal ROM. Skin: warm, dry, intact, normal turgor, normal color, no rash. MS/ Extremity: normal ROM of extremities, mild right knee joint effusion, mild amount of tenderness on palpation, no deformity, no crepitus, negative Rubina's test, negative anterior and posterior drawer test Neuro: alert and oriented with appropriate mental status, normal speech, follows commands, no focal neurologic deficits. Psych: appropriate mood and affect. Vital Signs: 00:24 BP 170 / 101; Pulse 73; Resp 18; Temp 98.1; Pulse Ox 99% ; Weight 108.86 kg; Height 5 br2 ft. 6 in. ; Pain 8/10; 01:29 BP 135 / 59; Pulse 63; Resp 17; Temp 98.1; Pulse Ox 99% ; Pain 5/10; bm8 02:22 BP 142 / 68; Pulse 68; Resp 18; Pulse Ox 99% on R/A; nh2 02:50 BP 128 / 65; Pulse 63; Resp 17; Temp 98.1; Pulse Ox 99% ; Pain 3/10; bm8 00:24 Body Mass Index 38.74 (108.86 kg, 167.64 cm) br2 00:24 Pain Scale: Adult br2 01:29 Pain Scale: Adult bm8 02:50 Pain Scale: Adult bm8 [place] Coma Score: 01:29 Eye Response: spontaneous(4). Motor Response: obeys commands(6). Verbal Response: bm8 oriented(5). Total: 15. 02:50 Eye Response: spontaneous(4). Motor Response: obeys commands(6). Verbal Response: bm8 oriented(5). Total: 15. MDM: 00:23 Medical Screening Exam initiated tt7 00:38 Differential diagnosis: Patellar dislocation, patella fracture, proximal tibia tt7 fracture, tibial plateau fracture. Data reviewed: vital signs, nurses notes, radiologic studies. ED course: Physical exam is reassuring, no obvious ligamentous injury, will obtain x-ray imaging and treat pain with oral Tylenol and ibuprofen. 02:46 ED course: I independently interpreted the patient's x-ray imaging of the right knee, tt7 on my interpretation there is no acute fracture or dislocation. 03/04 00:24 Order name: XRAY Knee RIGHT 3 view tt7 Administered Medications: 00:34 Drug: Acetaminophen PO 1000 mg PO once Route: PO; nh2 01:29 Follow up: Response: No adverse reaction bm8 00:34 Drug: Ibuprofen PO 600 mg PO once Route: PO; nh2 01:29 Follow up: Response: No adverse reaction bm8 Disposition: 02:49 Co-signature as Attending Physician, Adam Roach DO. tt7 Disposition Summary: 03/04/25 02:49 Discharge Ordered Notes: Location: Home tt7 Problem: new tt7 Symptoms: have improved tt7 Condition: Stable tt7 Diagnosis - Pain in right knee tt7 Followup: tt7 - With: Emergency Department - When: As needed - Reason: Followup: tt7 - With: Private Physician - When: 2 - 3 days - Reason: Recheck today's complaints, Re-evaluation by your physician Discharge Instructions: - Discharge Summary Sheet tt7 - Musculoskeletal Pain tt7 - Acute Knee Pain, Adult tt7 - How to Use Cold Therapy, [id number] tt7 Forms: - Medication Reconciliation Form tt7 - Antibiotic Education tt7 - Prescription Opioid Use tt7 - Patient Portal Instructions tt7 - Leadership Thank You Letter tt7 Signatures: Dispatcher [employer] Corazon Jean RN RN br2 Zhao Cox Jr RN RN nh2 Adam Roach, DO tt7 Garland Ritchie RN bm8 Corrections: (The following items were deleted from the chart) 00:24 00:24 Knee Right 3 View+[email or web address] ordered. [facility]
--- NOTE | 2025-03-04 06:15 | RAD REPORT ---
EXAM: XR Right Knee, 3 Views CLINICAL HISTORY: The patient is 59 years old and is Female; PAIN TECHNIQUE: Three views of the right knee. COMPARISON: No relevant prior studies available. FINDINGS: BONES/JOINTS: There is no joint effusion. No acute fracture. No dislocation. SOFT TISSUES: Unremarkable. IMPRESSION: No acute findings in the right knee. Electronically signed by: Anaid Dalal MD 03/04/2025 02:14 AM CDT RP Due to temporary technical issues with the PACS/[employer] reporting system, reports are being amy d by the in-house radiologist without review as a courtesy to ensure prompt reporting the interpreting radiologist is fully responsible for the content of the report. Transcribed Date/Time: 03/04/2025 6:15 AM
[2025-03-04 06:53] VITALS: TEMP 98.1; O2SAT 99
[2025-03-04 06:57] VITALS: BP 128/65
== END 2025-03-04 02:52 | disposition home or self-care (01) ==
LOC: ER 00:08
DX: M25.561 Pain in right knee (principal)
CPT/HCPCS: 99283